=== PATIENT | female | born 1995 | race African-American/Black ===

== ENCOUNTER 2016-10-23 14:57 | Inpatient (IN) | payer OTHER, MEDICAID ==
--- NOTE | 2016-10-23 18:37 | RAD ---
HISTORY: Low back pain, sickle cell crisis Study: Single-view chest Comparison: None Findings: There is mild elevation of the right hemidiaphragm, likely chronic. There is an absent splenic shado w likely indicating auto infarction. The trachea is midline. The cardiac silhouette is borderline e nlarged when considering the AP technique. The lungs are clear without focal mass or consolidation. There is no effusion or pneumothorax. The bony thorax is grossly unremarkable. IMPRESSION: No acute cardiopulmonary disease. Reported By:
[2016-10-23 18:48] LABS: RETICULOCYTE % 10.85 % (0.8-2.2)
[2016-10-23 19:03] LABS: BASOPHILS # (AUTO) 0.1 X10^3/uL (0.0-0.1); BASOPHILS % (AUTO) 0.6 % (0.2-1.0); EOSINOPHILS # (AUTO) 0.1 x10^3/uL (0.0-0.2); EOSINOPHILS % (AUTO) 0.6 % (0.9-2.9); HEMATOCRIT 26.1 % (36.0-47.0); HEMOGLOBIN 9.2 g/dL (12.0-16.0); LYMPHOCYTES # (AUTO) 5.8 X10^3/uL (1.3-2.9); LYMPHOCYTES % (AUTO) 23.1 % (21.0-51.0); MEAN CORPUSCULAR HEMOGLOBIN 32.7 pg (27.0-34.0); MEAN CORPUSCULAR HGB CONC 35.1 g/dL (33.0-35.0); MEAN CORPUSCULAR VOLUME 93.1 fL (80.0-100.0); MEAN PLATELET VOLUME 7.8 fL (7.4-11.0); MONOCYTES # (AUTO) 2.5 x10^3/uL (0.3-0.8); NEUTROPHILS # (AUTO) 16.6 x10^3/uL (2.2-4.8); NEUTROPHILS % (AUTO) 65.7 % (42.0-75.0); PLATELET COUNT 177 X10^3/uL (150.0-450.0); RED BLOOD COUNT 2.81 X10^6/uL (3.5-5.4); RED CELL DISTRIBUTION WIDTH 15.8 % (11.6-16.5)
[2016-10-23 19:06] LABS: WHITE BLOOD COUNT 25.3 X10^3/uL (3.6-10.0)
[2016-10-23] MEDS: ZOFRAN INJ 4 MG VIAL IVP PRN (20:01)
[2016-10-23] MEDS: DILAUDID INJ IVP PRN ×2 (20:01→22:52)
[2016-10-23] MEDS: NS 1000 ML 1,000 ML IV SCH (20:30)
[2016-10-23 21:41] VITALS: BMI 23.6
[2016-10-23] MEDS ORDERED: [UNRECOGNIZED DRUG - OTHER] PO PRN (22:12)
[2016-10-23] MEDS ORDERED: OXYCODONE HCL PO PRN (22:12)
[2016-10-23] MEDS ORDERED: ACETAMINOPHEN PO PRN (22:12)
--- NOTE | 2016-10-23 22:18 | DR.H&P ---
H&P - History & Physical for Day of: H&P Date: 10/23/16 - Chief Complaint Chief Complaint: Back and leg pain - Allergies Allergies/Adverse Reactions: Allergies Allergy/AdvReac Type Severity Reaction Status Date / Time No Known Drug Allergies Allergy Verified 10/23/16 16:37 - History of Present Illness History of Present Illness: The patient is a 21yo BF who presented to Clinic with increasing back and leg pain consistant with her Sickle Cell Crisis. Patient was seen in the office setting yesterday with back pain. Patient stated she had been increasing her PO fluid intake but today started with nausea and vomiting. Patient had been on vacation last week and thinks the activity is what caused a flare. - Past Medical History Past Medical History: Anemia (Sickle Cell Anemia) Additional Medical History: Sickle Cell Anemia - Past Surgical History Surgical History: , Cholecystectomy, Other - Family History Family Medical History: Diabetes Mellitus, Cancer - Social History Does patient currently use any type of tobacco product: Yes (VAPOR) Have you used tobacco products in the last 12 months: Yes Type of Tobacco Use: VAPOR Does any household member use tobacco: No Alcohol Use: None Drug Use: None - Medications Home Medications: Oxycodone HCl/Acetaminophen [Percocet 10-325 mg Tablet] 1 each PO Q6HR PRN 10/23 [History Confirmed 10/23/16] - Review of Systems Constitutional: Malaise Eyes: No Symptoms Reported ENT: No Symptoms Reported Respiratory: No Symptoms Reported Cardiovascular: No Symptoms Reported Gastrointestinal: Nausea, Vomiting Genitourinary: No Symptoms Reported Musculoskeletal: Back Pain, Leg Pain Skin: No Symptoms Reported Neurological: No Symptoms Reported - Physical Exam Vital Signs: Temperature 98.3 F Pulse Rate [Left Brachial] 88 Respiratory Rate 18 Blood Pressure [Left Arm] 117/75 O2 Sat by Pulse Oximetry 95 Oriented: Normal Eyes: Normal Ear: Normal Nose: Normal Throat: Normal Respiratory: Clear Throughout Cardiovascular: Normal : Normal Auscultation: Bowel Sounds: Normal Palpation: Normal Tenderness: Normal Skin: Normal Musculoskeletal: Back:Lumbar, Tender Psychiatric: Normal Mood Description: Calm Affect: Normal Speech Pattern: Clear - Assessment/Plan (1) Sickle cell crisis Status: Acute Plan: CBC, CMP, Retic Count. IV Hydration. Pain mgmt (2) Sickle cell anemia Qualifiers: Sickle-cell associated disorders: with unspecified crisis Qualified Code(s) : D57.00 - Hb-SS disease with crisis, unspecified; D57.0 - Hb-SS disease with crisis Status: Acute Plan: Monitor CBC (3) Leukocytosis Qualifiers: Leukocytosis type: L Status: Acute Plan: CBC, CMP, Retic Count. IV Hydration. Levaquin IV (4) Back pain Qualifiers: Back pain location: low back pain Chronicity: acute Back pain laterality : bilateral Sciatica presence: S Sciatica laterality: S Status: Acute Plan: Dilaudid IV
[2016-10-23 22:28] LABS: ALANINE AMINOTRANSFERASE 15 Units/L (12-78); ALBUMIN 4.2 g/dL (3.4-5.0); ALKALINE PHOSPHATASE 66 Units/L (46-116); ASPARTATE AMINO TRANSFERASE 23 Units/L (15-37); BLOOD UREA NITROGEN 4 mg/dL (7-18); CARBON DIOXIDE 29.8 mmol/L (21-32); CHLORIDE 98 mmol/L (98-107); GLUCOSE 79 mg/dL (65-99); SODIUM 138 mmol/L (136-145); TOTAL PROTEIN 8.7 g/dL (6.4-8.2); eGFR BLACK RACES > 60 (>60); eGFR NON BLACK RACES > 60 (>60)
[2016-10-23] MEDS: LEVAQUIN PREMIX IV 500 MG 500 MG/100 ML BAG IV SCH (22:52)
[2016-10-24 01:43] LABS: BILIRUBIN,URINE NEGATIVE (NEGATIVE); BLOOD/HEMOGLOBIN,URINE 1+ (NEGATIVE); GLUCOSE, URINE NEGATIVE (NEGATIVE); KETONES,URINE NEGATIVE (NEGATIVE); LEUKOCYTE ESTERASE ,URINE NEGATIVE (NEGATIVE); NITRITES,URINE NEGATIVE (NEGATIVE); PROTEIN,URINE NEGATIVE (NEGATIVE); UROBILINOGEN,URINE NORMAL (NORMAL)
[2016-10-24] MEDS: DILAUDID INJ IVP PRN ×8 (01:49→23:41)
[2016-10-24 01:51] LABS: APPEARANCE,URINE CLEAR (CLEAR); BACTERIA,URINE TRACE /HPF (NEGATIVE); COLOR,URINE YELLOW (YELLOW); MUCUS,URINE FEW /HPF (NEGATIVE); RBC,URINE 0-2 /HPF (NEGATIVE); SQUAMOUS EPITHELIAL CELL,UR RARE /HPF (NEGATIVE)
[2016-10-24] MEDS: ZOFRAN INJ 4 MG VIAL IVP PRN ×3 (04:58→23:41)
[2016-10-24] MEDS: NS 1000 ML 1,000 ML IV SCH ×3 (05:00→20:39)
[2016-10-24 06:22] LABS: ALANINE AMINOTRANSFERASE 13 Units/L (12-78); ALBUMIN 3.5 g/dL (3.4-5.0); ALKALINE PHOSPHATASE 59 Units/L (46-116); ASPARTATE AMINO TRANSFERASE 21 Units/L (15-37); BLOOD UREA NITROGEN 4 mg/dL (7-18); CALCIUM 8.5 mg/dL (8.5-10.1); CARBON DIOXIDE 31.2 mmol/L (21-32); CHLORIDE 102 mmol/L (98-107); CREATININE 0.53 mg/dL (0.55-1.02); GLUCOSE 98 mg/dL (65-99); SODIUM 140 mmol/L (136-145); TOTAL PROTEIN 7.9 g/dL (6.4-8.2); eGFR BLACK RACES > 60 (>60); eGFR NON BLACK RACES > 60 (>60)
[2016-10-24 06:29] LABS: EOSINOPHILS # (AUTO) 0.2 x10^3/uL (0.0-0.2); EOSINOPHILS % (AUTO) 0.8 % (0.9-2.9)
[2016-10-24] MEDS ORDERED: POTASSIUM CHLORIDE LIQ 20 MEQ UDC PO PRN (06:32)
[2016-10-24] MEDS ORDERED: K-LYTE EFFERVESCENT PO PRN (06:32)
[2016-10-24] MEDS ORDERED: K-RIDER 10 MEQ/NS 100 ML 10 MEQ/100 ML BAG IV PRN (06:32)
[2016-10-24 06:37] LABS: BASOPHILS # (AUTO) 0.1 X10^3/uL (0.0-0.1); BASOPHILS % (AUTO) 0.5 % (0.2-1.0); HEMATOCRIT 22.9 % (36.0-47.0); LYMPHOCYTES # (AUTO) 4.8 X10^3/uL (1.3-2.9); LYMPHOCYTES % (AUTO) 22.5 % (21.0-51.0); MEAN CORPUSCULAR HEMOGLOBIN 32.5 pg (27.0-34.0); MEAN CORPUSCULAR HGB CONC 34.8 g/dL (33.0-35.0); MEAN CORPUSCULAR VOLUME 93.5 fL (80.0-100.0); MEAN PLATELET VOLUME 7.7 fL (7.4-11.0); MONOCYTES # (AUTO) 2.9 x10^3/uL (0.3-0.8); MONOCYTES % (AUTO) 13.5 % (0.0-13.0); NEUTROPHILS # (AUTO) 13.4 x10^3/uL (2.2-4.8); NEUTROPHILS % (AUTO) 62.7 % (42.0-75.0); PLATELET COUNT 197 X10^3/uL (150.0-450.0); RED BLOOD COUNT 2.45 X10^6/uL (3.5-5.4)
[2016-10-24 06:59] LABS: WHITE BLOOD COUNT 21.3 X10^3/uL (3.6-10.0)
[2016-10-24 07:03] LABS: PLATELET MORPHOLOGY COMMENT NORMAL (NORMAL)
[2016-10-24 07:05] LABS: POIKILOCYTOSIS 1+; SICKLE CELLS FEW
[2016-10-24 07:06] LABS: HYPOCHROMASIA 1+
--- NOTE | 2016-10-24 18:28 | PCM.PROG ---
Progress Note - Progress Note for Day of Date: 10/24/16 - Subjective Subjective: PAIN ALL OVER - Past Medical Family Social History Past Med/Fam/Surg Hx: No changes since H&P Allergies: Allergies No Known Drug Allergies Allergy (Verified 10/23/16 16:37) - Review of Systems ROS: No change since H&P - Vital Signs and I&O's Vital Signs: Temperature 98.3 F Pulse Rate [Left Brachial] 87 Respiratory Rate 19 Blood Pressure [Right Arm] 108/62 Blood Pressure [Left Arm] 101/58 O2 Sat by Pulse Oximetry 94 Intake and Output: Intake & Output 10/22/16 10/23/16 10/24/16 10/25/16 11:59 11:59 11:59 11:59 Intake Total 1090 1500 Balance 1090 1500 - Physical Exam Oriented: Normal Eyes: Normal Ear: Normal Nose: Normal Throat: Normal Respiratory: Normal Cardiovascular: Normal : Normal Auscultation: Bowel Sounds: Normal Tenderness: Normal Skin: Normal Musculoskeletal: Shoulder, Elbow, Hand, Knee, Leg, Back:Thoracic, Back:Lumbar, Tender Psychiatric: Normal Mood Description: Calm Affect: Normal Speech Pattern: Clear, Appropriate - Laboratory and Diagnostics Result Diagrams: 10/24/16 05:30 10/24/16 10:14 Labs: Laboratory WBC 21.3 X10^3/uL (3.6-10.0) H* 10/24/16 05:30 RBC 2.45 X10^6/uL (3.5-5.4) L 10/24/16 05:30 Hgb 8.0 g/dL (12.0-16.0) L 10/24/16 05:30 Hct 22.9 % (36.0-47.0) L 10/24/16 05:30 MCV 93.5 fL (80.0-100.0) 10/24/16 05:30 MCH 32.5 pg (27.0-34.0) 10/24/16 05:30 MCHC 34.8 g/dL (33.0-35.0) 10/24/16 05:30 RDW 17.0 % (11.6-16.5) H 10/24/16 05:30 Plt Count 197 X10^3/uL (150.0-450.0) 10/24/16 05:30 Plt Count Comment Adequate (ADEQUATE) 10/24/16 05:30 MPV 7.7 fL (7.4-11.0) 10/24/16 05:30 Neut % 62.7 % (42.0-75.0) 10/24/16 05:30 Lymph % 22.5 % (21.0-51.0) 10/24/16 05:30 [place] % 13.5 % (0.0-13.0) H 10/24/16 05:30 Eos % 0.8 % (0.9-2.9) L 10/24/16 05:30 Baso % 0.5 % (0.2-1.0) 10/24/16 05:30 Neut # 13.4 x10^3/uL (2.2-4.8) H 10/24/16 05:30 Lymph # 4.8 X10^3/uL (1.3-2.9) H 10/24/16 05:30 [place] # 2.9 x10^3/uL (0.3-0.8) H 10/24/16 05:30 Eos # 0.2 x10^3/uL (0.0-0.2) 10/24/16 05:30 Baso # 0.1 X10^3/uL (0.0-0.1) 10/24/16 05:30 Absolute Nucleated RBC 1.3 /100WBC 10/24/16 05:30 Total Counted 100 10/24/16 05:30 Neutrophils % (Manual) 73 % (39-76) 10/24/16 05:30 Lymphocytes % (Manual) 19 % (13-43) 10/24/16 05:30 Monocytes % (Manual) 8 % (4-9) 10/24/16 05:30 Plt Morphology Comment Normal (NORMAL) 10/24/16 05:30 RBC Morphology Abnormal (NORMAL) A 10/24/16 05:30 Hypochromasia 1+ A 10/24/16 05:30 Poikilocytosis 1+ A 10/24/16 05:30 Sickle Cells Few 10/24/16 05:30 Absolute Retic 0.3004 10^6/uL 10/23/16 17:55 Percent Retic 10.85 % (0.8-2.2) H 10/23/16 17:55 Sodium 140 mmol/L (136-145) 10/24/16 05:30 Corrected Sodium TNP 10/24/16 05:30 Potassium 3.3 mmol/L (3.5-5.1) L 10/24/16 10:14 Chloride 102 mmol/L (98-107) 10/24/16 05:30 Carbon Dioxide 31.2 mmol/L (21-32) 10/24/16 05:30 BUN 4 mg/dL (7-18) L 10/24/16 05:30 Creatinine 0.53 mg/dL (0.55-1.02) L 10/24/16 05:30 Est GFR (MDRD) Af Amer > 60 (>60) 10/24/16 05:30 Est GFR (MDRD) Non-Af > 60 (>60) 10/24/16 05:30 Glucose 98 mg/dL (65-99) 10/24/16 05:30 Calcium 8.5 mg/dL (8.5-10.1) 10/24/16 05:30 Corrected Calcium TNP 10/24/16 05:30 Total Bilirubin 2.50 mg/dL (0.2-1.0) H 10/24/16 05:30 AST 21 Units/L (15-37) 10/24/16 05:30 ALT 13 Units/L (12-78) 10/24/16 05:30 Alkaline Phosphatase 59 Units/L (46-116) 10/24/16 05:30 Total Protein 7.9 g/dL (6.4-8.2) 10/24/16 05:30 Albumin 3.5 g/dL (3.4-5.0) 10/24/16 05:30 Globulin 4.4 g/dL (2.5-4.5) 10/24/16 05:30 Albumin/Globulin Ratio 0.8 Ratio (1.1-2.1) L 10/24/16 05:30 Specimen Type Clean catch urine 10/24/16 01:00 Urine Color Yellow (YELLOW) 10/24/16 01:00 Urine Appearance Clear (CLEAR) 10/24/16 01:00 Urine pH 6.0 (5.0 - 8.0) 10/24/16 01:00 Ur Specific [place] 1.010 (1.000-1.030) 10/24/16 01:00 Urine Protein Negative (NEGATIVE) 10/24/16 01:00 Urine Glucose (UA) Negative (NEGATIVE) 10/24/16 01:00 Urine Ketones Negative (NEGATIVE) 10/24/16 01:00 Urine Occult Blood 1+ (NEGATIVE) 10/24/16 01:00 Urine Nitrite Negative (NEGATIVE) 10/24/16 01:00 Urine Bilirubin Negative (NEGATIVE) 10/24/16 01:00 Urine Urobilinogen Normal (NORMAL) 10/24/16 01:00 Ur Leukocyte Esterase Negative (NEGATIVE) 10/24/16 01:00 Urine RBC 0-2 /HPF (NEGATIVE) 10/24/16 01:00 Urine WBC 0-2 /HPF (NEGATIVE) 10/24/16 01:00 Ur Squamous Epith Cells Rare /HPF (NEGATIVE) 10/24/16 01:00 Urine Bacteria Trace /HPF (NEGATIVE) 10/24/16 01:00 Urine Mucus Few /HPF (NEGATIVE) 10/24/16 01:00 Ur Culture Indicated? No/not indicated 10/24/16 01:00 - Plan (1) Sickle cell crisis Status: Acute Plan: CBC, CMP, Retic Count. IV Hydration. Pain mgmt (2) Leukocytosis Status: Acute Qualifiers: Leukocytosis type: L Plan: CBC, CMP, Retic Count. IV Hydration. Levaquin IV. BLOOD CULTURE PENDING (3) Sickle cell anemia Status: Chronic Qualifiers: Sickle-cell associated disorders: with unspecified crisis Qualified Code(s) : D57.00 - Hb-SS disease with crisis, unspecified; D57.0 - Hb-SS disease with crisis Plan: Monitor CBC
[2016-10-24] MEDS: K-DUR TAB 20 MEQ PO PRN (20:38)
[2016-10-24] MEDS: LEVAQUIN PREMIX IV 500 MG 500 MG/100 ML BAG IV SCH (20:39)
[2016-10-25] MEDS: DILAUDID INJ IVP PRN ×6 (02:33→19:59)
[2016-10-25] MEDS: NS 1000 ML 1,000 ML IV SCH ×2 (05:39→10:39)
[2016-10-25 05:49] LABS: ALANINE AMINOTRANSFERASE 26 Units/L (12-78); ALBUMIN 3.3 g/dL (3.4-5.0); ALKALINE PHOSPHATASE 62 Units/L (46-116); ASPARTATE AMINO TRANSFERASE 36 Units/L (15-37); BLOOD UREA NITROGEN 1 mg/dL (7-18); CALCIUM 8.4 mg/dL (8.5-10.1); CARBON DIOXIDE 30.9 mmol/L (21-32); CHLORIDE 106 mmol/L (98-107); CREATININE 0.46 mg/dL (0.55-1.02); GLUCOSE 99 mg/dL (65-99); SODIUM 142 mmol/L (136-145); TOTAL PROTEIN 7.7 g/dL (6.4-8.2); eGFR BLACK RACES > 60 (>60); eGFR NON BLACK RACES > 60 (>60)
[2016-10-25 06:18] LABS: BASOPHILS # (AUTO) 0.1 X10^3/uL (0.0-0.1); BASOPHILS % (AUTO) 0.5 % (0.2-1.0); EOSINOPHILS # (AUTO) 0.6 x10^3/uL (0.0-0.2); EOSINOPHILS % (AUTO) 2.4 % (0.9-2.9); HEMATOCRIT 22.4 % (36.0-47.0); HEMOGLOBIN 7.8 g/dL (12.0-16.0); LYMPHOCYTES # (AUTO) 6.6 X10^3/uL (1.3-2.9); LYMPHOCYTES % (AUTO) 27.4 % (21.0-51.0); MEAN CORPUSCULAR HEMOGLOBIN 33.4 pg (27.0-34.0); MEAN CORPUSCULAR HGB CONC 34.7 g/dL (33.0-35.0); MEAN CORPUSCULAR VOLUME 96.3 fL (80.0-100.0); MONOCYTES # (AUTO) 2.8 x10^3/uL (0.3-0.8); MONOCYTES % (AUTO) 11.7 % (0.0-13.0); PLATELET COUNT 250 X10^3/uL (150.0-450.0); RED BLOOD COUNT 2.32 X10^6/uL (3.5-5.4); RED CELL DISTRIBUTION WIDTH 18.9 % (11.6-16.5)
[2016-10-25 06:21] LABS: RETICULOCYTE % 18.3 % (0.8-2.2)
[2016-10-25 06:47] LABS: WHITE BLOOD COUNT 24.1 X10^3/uL (3.6-10.0)
[2016-10-25 06:48] LABS: ANISOCYTOSIS 1+; BAND NEUTROPHILS % 1 % (0-10); HYPOCHROMASIA 1+; MICROCYTOSIS 1+; PLATELET MORPHOLOGY COMMENT NORMAL (NORMAL); POIKILOCYTOSIS 1+; SICKLE CELLS FEW
[2016-10-25] MEDS: ZOFRAN INJ 4 MG VIAL IVP PRN ×2 (07:40→19:59)
[2016-10-25] MEDS: ROCEPHIN VIAL 1 GM 1 GM in NS 50 ML IV + SPIKE MINIBAG* 50 ML IV SCH (10:35)
[2016-10-25] MEDS: PERCOCET TAB 5/325 MG PO PRN ×2 (10:36→18:00)
[2016-10-25] MEDS: BENADRYL CAP/TAB 25 MG PO PRN (10:37)
[2016-10-25] MEDS: K-DUR TAB 20 MEQ PO PRN ×3 (12:00→21:08)
--- NOTE | 2016-10-25 18:20 | PCM.PROG ---
Progress Note - Progress Note for Day of Date: 10/25/16 - Subjective Subjective: Patient is a 21-year-old black female who was admitted on 711 with acute sickle cell crisis, sickle cell anemia. Patient was noted to have leukocytosis on admission patient has been receiving IV Levaquin. This morning patient's WBCs 24.1, hemoglobin 7.8. Patient's bili improved at 2. Patient's fatigue count continued to be elevated this morning 18.3. Patient's been noncompliant with use of O2. Patient encouraged to keep oxygen on 24 hours, will given normal saline bolus this morning and add Rocephin 1 g IV daily and obtain abdominal series due to constipation. Encouraged by mouth hydration will repeat a.m. labs and continue with pain and nausea control - Past Medical Family Social History Past Med/Fam/Surg Hx: No changes since H&P Allergies: Allergies No Known Drug Allergies Allergy (Verified 10/23/16 16:37) - Review of Systems ROS: No change since H&P - Vital Signs and I&O's Vital Signs: Temperature 98.6 F Pulse Rate [Right Brachial] 75 Pulse Rate [Left Brachial] 77 Respiratory Rate 16 Blood Pressure [Right Arm] 102/51 Blood Pressure [Left Arm] 108/59 O2 Sat by Pulse Oximetry 96 Intake and Output: Intake & Output 10/23/16 10/24/16 10/25/16 10/26/16 11:59 11:59 11:59 11:59 Intake Total 1090 2440 1425 Output Total 3 Balance 1090 2437 1425 - Physical Exam Oriented: Normal Eyes: Normal Ear: Normal Nose: Normal Throat: Normal Respiratory: Normal Cardiovascular: Normal : Normal Auscultation: Bowel Sounds: Decreased Tenderness: Mild Skin: Normal Musculoskeletal: Shoulder, Elbow, Hand, Knee, Leg, Back:Thoracic, Back:Lumbar, Tender Psychiatric: Normal Mood Description: Calm Affect: Normal Speech Pattern: Clear, Appropriate - Laboratory and Diagnostics Result Diagrams: 10/25/16 05:20 10/25/16 16:20 Labs: 10/23/16 18:45 Blood Blood Culture - Preliminary 10/23/16 17:55 Blood Blood Culture - Preliminary Laboratory WBC 24.1 X10^3/uL (3.6-10.0) H* 10/25/16 05:20 RBC 2.32 X10^6/uL (3.5-5.4) L 10/25/16 05:20 Hgb 7.8 g/dL (12.0-16.0) L 10/25/16 05:20 Hct 22.4 % (36.0-47.0) L 10/25/16 05:20 MCV 96.3 fL (80.0-100.0) 10/25/16 05:20 MCH 33.4 pg (27.0-34.0) 10/25/16 05:20 MCHC 34.7 g/dL (33.0-35.0) 10/25/16 05:20 RDW 18.9 % (11.6-16.5) H 10/25/16 05:20 Plt Count 250 X10^3/uL (150.0-450.0) 10/25/16 05:20 Plt Count Comment Adequate (ADEQUATE) 10/25/16 05:20 MPV 8.0 fL (7.4-11.0) 10/25/16 05:20 Neut % 58.0 % (42.0-75.0) 10/25/16 05:20 Lymph % 27.4 % (21.0-51.0) 10/25/16 05:20 [place] % 11.7 % (0.0-13.0) 10/25/16 05:20 Eos % 2.4 % (0.9-2.9) 10/25/16 05:20 Baso % 0.5 % (0.2-1.0) 10/25/16 05:20 Neut # 14.0 x10^3/uL (2.2-4.8) H 10/25/16 05:20 Lymph # 6.6 X10^3/uL (1.3-2.9) H 10/25/16 05:20 [place] # 2.8 x10^3/uL (0.3-0.8) H 10/25/16 05:20 Eos # 0.6 x10^3/uL (0.0-0.2) H 10/25/16 05:20 Baso # 0.1 X10^3/uL (0.0-0.1) 10/25/16 05:20 Absolute Nucleated RBC 2.3 /100WBC 10/25/16 05:20 Total Counted 100 10/25/16 05:20 Neutrophils % (Manual) 56 % (39-76) 10/25/16 05:20 Band Neutrophils % 1 % (0-10) 10/25/16 05:20 Lymphocytes % (Manual) 23 % (13-43) 10/25/16 05:20 Monocytes % (Manual) 19 % (4-9) H 10/25/16 05:20 Eosinophils % (Manual) 1 % (0-6) 10/25/16 05:20 Nucleated RBCs 4 10/25/16 05:20 Plt Morphology Comment Normal (NORMAL) 10/25/16 05:20 RBC Morphology Abnormal (NORMAL) A 10/25/16 05:20 Hypochromasia 1+ A 10/25/16 05:20 Poikilocytosis 1+ A 10/25/16 05:20 Anisocytosis 1+ A 10/25/16 05:20 Microcytosis 1+ A 10/25/16 05:20 Sickle Cells Few 10/25/16 05:20 Absolute Retic 0.0426 10^6/uL 10/25/16 05:30 Percent Retic 18.30 % (0.8-2.2) H 10/25/16 05:30 Sodium 142 mmol/L (136-145) 10/25/16 05:20 Corrected Sodium TNP 10/25/16 05:20 Potassium 3.4 mmol/L (3.5-5.1) L 10/25/16 16:20 Chloride 106 mmol/L (98-107) 10/25/16 05:20 Carbon Dioxide 30.9 mmol/L (21-32) 10/25/16 05:20 BUN 1 mg/dL (7-18) L 10/25/16 05:20 Creatinine 0.46 mg/dL (0.55-1.02) L 10/25/16 05:20 Est GFR (MDRD) Af Amer > 60 (>60) 10/25/16 05:20 Est GFR (MDRD) Non-Af > 60 (>60) 10/25/16 05:20 Glucose 99 mg/dL (65-99) 10/25/16 05:20 Calcium 8.4 mg/dL (8.5-10.1) L 10/25/16 05:20 Corrected Calcium 9.0 mg/dL (8.5-10.1) 10/25/16 05:20 Magnesium 1.8 mg/dL (1.7-2.9) 10/25/16 05:20 Total Bilirubin 2.00 mg/dL (0.2-1.0) H 10/25/16 05:20 AST 36 Units/L (15-37) 10/25/16 05:20 ALT 26 Units/L (12-78) 10/25/16 05:20 Alkaline Phosphatase 62 Units/L (46-116) 10/25/16 05:20 Total Protein 7.7 g/dL (6.4-8.2) 10/25/16 05:20 Albumin 3.3 g/dL (3.4-5.0) L 10/25/16 05:20 Globulin 4.4 g/dL (2.5-4.5) 10/25/16 05:20 Albumin/Globulin Ratio 0.8 Ratio (1.1-2.1) L 10/25/16 05:20 Specimen Type Clean catch urine 10/24/16 01:00 Urine Color Yellow (YELLOW) 10/24/16 01:00 Urine Appearance Clear (CLEAR) 10/24/16 01:00 Urine pH 6.0 (5.0 - 8.0) 10/24/16 01:00 Ur Specific [place] 1.010 (1.000-1.030) 10/24/16 01:00 Urine Protein Negative (NEGATIVE) 10/24/16 01:00 Urine Glucose (UA) Negative (NEGATIVE) 10/24/16 01:00 Urine Ketones Negative (NEGATIVE) 10/24/16 01:00 Urine Occult Blood 1+ (NEGATIVE) 10/24/16 01:00 Urine Nitrite Negative (NEGATIVE) 10/24/16 01:00 Urine Bilirubin Negative (NEGATIVE) 10/24/16 01:00 Urine Urobilinogen Normal (NORMAL) 10/24/16 01:00 Ur Leukocyte Esterase Negative (NEGATIVE) 10/24/16 01:00 Urine RBC 0-2 /HPF (NEGATIVE) 10/24/16 01:00 Urine WBC 0-2 /HPF (NEGATIVE) 10/24/16 01:00 Ur Squamous Epith Cells Rare /HPF (NEGATIVE) 10/24/16 01:00 Urine Bacteria Trace /HPF (NEGATIVE) 10/24/16 01:00 Urine Mucus Few /HPF (NEGATIVE) 10/24/16 01:00 Ur Culture Indicated? No/not indicated 10/24/16 01:00 - Plan (1) Sickle cell crisis Status: Acute Plan: CBC, CMP, Retic Count. IV Hydration. Pain mgmt (2) Leukocytosis Status: Acute Qualifiers: Leukocytosis type: L Plan: CBC, CMP, Retic Count. IV Hydration. Levaquin IV AND ADDED iv rOCEPHIN 1 G DAILY. BLOOD CULTURE NEGATIVE ON DAY 3 (3) Sickle cell anemia Status: Chronic Qualifiers: Sickle-cell associated disorders: with unspecified crisis Qualified Code(s) : D57.00 - Hb-SS disease with crisis, unspecified; D57.0 - Hb-SS disease with crisis Plan: Monitor CBC
--- NOTE | 2016-10-25 18:59 | RAD ---
HISTORY: Leukocytosis, constipation Study: Acute abdominal series Comparison: None Findings: The patient is rotated. The cardiac silhouette is unremarkable. The lung apices are partially obsc ured by overlying soft tissues. Otherwise the lungs are clear without focal infiltrate or effusion. . Flat plate and upright evaluation of the abdomen demonstrates a nonspecific bowel gas pattern. The renal shadows are partially obscured by overlying bowel content. Surgical clips project over the rig ht upper quadrant the abdomen. If symptoms persist recommend continued followup for further evaluati on. IMPRESSION: 1. No acute cardiopulmonary disease. 2. Nonspecific bowel gas pattern. Reported By:
[2016-10-25] MEDS: MILK OF MAGNESIA PO SCH (21:07)
[2016-10-25] MEDS: COLACE CAP 100 MG PO SCH (21:08)
[2016-10-25] MEDS: LEVAQUIN PREMIX IV 500 MG 500 MG/100 ML BAG IV SCH (21:09)
[2016-10-26] MEDS: DILAUDID INJ IVP PRN ×6 (00:05→20:37)
[2016-10-26] MEDS: NS 1000 ML 1,000 ML IV SCH ×6 (00:06→19:52)
[2016-10-26] MEDS: PERCOCET TAB 5/325 MG PO PRN ×2 (02:19→18:13)
[2016-10-26] MEDS: BENADRYL CAP/TAB 25 MG PO PRN ×2 (02:19→18:13)
[2016-10-26] MEDS: ZOFRAN INJ 4 MG VIAL IVP PRN ×3 (04:24→20:37)
[2016-10-26 07:01] LABS: ALANINE AMINOTRANSFERASE 32 Units/L (12-78); ALBUMIN 2.9 g/dL (3.4-5.0); ALKALINE PHOSPHATASE 58 Units/L (46-116); ASPARTATE AMINO TRANSFERASE 42 Units/L (15-37); BASOPHILS # (AUTO) 0.3 X10^3/uL (0.0-0.1); BASOPHILS % (AUTO) 1.6 % (0.2-1.0); BLOOD UREA NITROGEN 3 mg/dL (7-18); CALCIUM 7.9 mg/dL (8.5-10.1); CARBON DIOXIDE 28.6 mmol/L (21-32); CHLORIDE 107 mmol/L (98-107); COR CA(FOR HYPOALB) 8.8 mg/dL (8.5-10.1); CREATININE 0.51 mg/dL (0.55-1.02); EOSINOPHILS # (AUTO) 0.7 x10^3/uL (0.0-0.2); EOSINOPHILS % (AUTO) 3.4 % (0.9-2.9); GLUCOSE 93 mg/dL (65-99); LYMPHOCYTES % (AUTO) 28.7 % (21.0-51.0); MEAN CORPUSCULAR HEMOGLOBIN 33.6 pg (27.0-34.0); MEAN CORPUSCULAR HGB CONC 34.8 g/dL (33.0-35.0); MEAN CORPUSCULAR VOLUME 96.4 fL (80.0-100.0); MEAN PLATELET VOLUME 8.3 fL (7.4-11.0); MONOCYTES # (AUTO) 2.9 x10^3/uL (0.3-0.8); MONOCYTES % (AUTO) 13.7 % (0.0-13.0); NEUTROPHILS # (AUTO) 10.9 x10^3/uL (2.2-4.8); NEUTROPHILS % (AUTO) 52.6 % (42.0-75.0); PLATELET COUNT 218 X10^3/uL (150.0-450.0); RED BLOOD COUNT 1.95 X10^6/uL (3.5-5.4); RED CELL DISTRIBUTION WIDTH 21.7 % (11.6-16.5); RETICULOCYTE % 20.51 % (0.8-2.2); SODIUM 141 mmol/L (136-145); TOTAL PROTEIN 6.8 g/dL (6.4-8.2); eGFR BLACK RACES > 60 (>60); eGFR NON BLACK RACES > 60 (>60)
[2016-10-26 08:36] LABS: WHITE BLOOD COUNT 20.8 X10^3/uL (3.6-10.0)
[2016-10-26 08:37] LABS: HEMATOCRIT 18.8 % (36.0-47.0); HEMOGLOBIN 6.6 g/dL (12.0-16.0)
[2016-10-26 08:38] LABS: HYPOCHROMASIA 1+; PLATELET MORPHOLOGY COMMENT NORMAL (NORMAL)
[2016-10-26 08:39] LABS: ANISOCYTOSIS 1+; POIKILOCYTOSIS 1+; SICKLE CELLS FEW
[2016-10-26] MEDS: COLACE CAP 100 MG PO SCH ×2 (09:02→20:36)
[2016-10-26] MEDS: ROCEPHIN VIAL 1 GM 1 GM in NS 50 ML IV + SPIKE MINIBAG* 50 ML IV SCH (09:02)
[2016-10-26] MEDS: MILK OF MAGNESIA PO SCH ×2 (09:02→20:36)
--- NOTE | 2016-10-26 14:30 | PCM.PROG ---
Progress Note - Progress Note for Day of Date: 10/26/16 - Subjective Subjective: Patient is a 21-year-old black female who was admitted on 10/23 with acute sickle cell crisis, sickle cell anemia. Patient was noted to have leukocytosis on admission patient has been receiving IV Levaquin and Rocephin. Patient's been noncompliant with use of O2. Patient encouraged to keep oxygen on 24 hours, Encouraged by mouth hydration will repeat a.m. labs and continue with pain and nausea control - Past Medical Family Social History Past Med/Fam/Surg Hx: No changes since H&P Allergies: Allergies No Known Drug Allergies Allergy (Verified 10/23/16 16:37) - Review of Systems ROS: No change since H&P - Vital Signs and I&O's Vital Signs: Temperature 98.4 F Pulse Rate [Right Brachial] 66 Pulse Rate [Left Brachial] 79 Respiratory Rate 16 Blood Pressure [Right Arm] 102/51 Blood Pressure [Left Arm] 112/62 O2 Sat by Pulse Oximetry 100 Intake and Output: Intake & Output 10/24/16 10/25/16 10/26/16 10/27/16 11:59 11:59 11:59 11:59 Intake Total 1090 2440 4275 590 Output Total 3 Balance 1090 2437 4275 590 - Physical Exam Oriented: Normal Eyes: Normal Ear: Normal Nose: Normal Throat: Normal Respiratory: Normal Cardiovascular: Normal : Normal Auscultation: Bowel Sounds: Decreased Tenderness: Mild Skin: Normal Musculoskeletal: Shoulder, Elbow, Hand, Knee, Leg, Back:Thoracic, Back:Lumbar, Tender Psychiatric: Normal Mood Description: Calm Affect: Normal Speech Pattern: Clear, Appropriate - Laboratory and Diagnostics Result Diagrams: 10/26/16 05:30 10/26/16 05:30 Labs: 10/23/16 18:45 Blood Blood Culture - Preliminary 10/23/16 17:55 Blood Blood Culture - Preliminary Laboratory WBC 20.8 X10^3/uL (3.6-10.0) H* 10/26/16 05:30 RBC 1.95 X10^6/uL (3.5-5.4) L 10/26/16 05:30 Hgb 6.6 g/dL (12.0-16.0) L* 10/26/16 05:30 Hct 18.8 % (36.0-47.0) L* 10/26/16 05:30 MCV 96.4 fL (80.0-100.0) 10/26/16 05:30 MCH 33.6 pg (27.0-34.0) 10/26/16 05:30 MCHC 34.8 g/dL (33.0-35.0) 10/26/16 05:30 RDW 21.7 % (11.6-16.5) H 10/26/16 05:30 Plt Count 218 X10^3/uL (150.0-450.0) 10/26/16 05:30 Plt Count Comment Adequate (ADEQUATE) 10/26/16 05:30 MPV 8.3 fL (7.4-11.0) 10/26/16 05:30 Neut % 52.6 % (42.0-75.0) 10/26/16 05:30 Lymph % 28.7 % (21.0-51.0) 10/26/16 05:30 [place] % 13.7 % (0.0-13.0) H 10/26/16 05:30 Eos % 3.4 % (0.9-2.9) H 10/26/16 05:30 Baso % 1.6 % (0.2-1.0) H 10/26/16 05:30 Neut # 10.9 x10^3/uL (2.2-4.8) H 10/26/16 05:30 Lymph # 6.0 X10^3/uL (1.3-2.9) H 10/26/16 05:30 [place] # 2.9 x10^3/uL (0.3-0.8) H 10/26/16 05:30 Eos # 0.7 x10^3/uL (0.0-0.2) H 10/26/16 05:30 Baso # 0.3 X10^3/uL (0.0-0.1) H 10/26/16 05:30 Absolute Nucleated RBC 2.8 /100WBC 10/26/16 05:30 Total Counted 100 10/25/16 05:20 Neutrophils % (Manual) 56 % (39-76) 10/25/16 05:20 Band Neutrophils % 1 % (0-10) 10/25/16 05:20 Lymphocytes % (Manual) 23 % (13-43) 10/25/16 05:20 Monocytes % (Manual) 19 % (4-9) H 10/25/16 05:20 Eosinophils % (Manual) 1 % (0-6) 10/25/16 05:20 Nucleated RBCs 4 10/25/16 05:20 Plt Morphology Comment Normal (NORMAL) 10/26/16 05:30 RBC Morphology Abnormal (NORMAL) A 10/26/16 05:30 Hypochromasia 1+ A 10/26/16 05:30 Poikilocytosis 1+ A 10/26/16 05:30 Anisocytosis 1+ A 10/26/16 05:30 Microcytosis 1+ A 10/25/16 05:20 Sickle Cells Few 10/26/16 05:30 Absolute Retic 0.4003 10^6/uL 10/26/16 05:30 Percent Retic 20.51 % (0.8-2.2) H 10/26/16 05:30 Sodium 141 mmol/L (136-145) 10/26/16 05:30 Corrected Sodium TNP 10/26/16 05:30 Potassium 3.4 mmol/L (3.5-5.1) L 10/26/16 05:30 Chloride 107 mmol/L (98-107) 10/26/16 05:30 Carbon Dioxide 28.6 mmol/L (21-32) 10/26/16 05:30 BUN 3 mg/dL (7-18) L 10/26/16 05:30 Creatinine 0.51 mg/dL (0.55-1.02) L 10/26/16 05:30 Est GFR (MDRD) Af Amer > 60 (>60) 10/26/16 05:30 Est GFR (MDRD) Non-Af > 60 (>60) 10/26/16 05:30 Glucose 93 mg/dL (65-99) 10/26/16 05:30 Calcium 7.9 mg/dL (8.5-10.1) L 10/26/16 05:30 Corrected Calcium 8.8 mg/dL (8.5-10.1) 10/26/16 05:30 Magnesium 1.8 mg/dL (1.7-2.9) 10/25/16 05:20 Iron 48 ug/dL (50-175) L 10/25/16 16:20 Transferrin 133 mg/dL (202-364) L 10/25/16 16:20 Ferritin 756 ng/mL (8-252) H 10/25/16 16:20 Total Bilirubin 1.40 mg/dL (0.2-1.0) H 10/26/16 05:30 AST 42 Units/L (15-37) H 10/26/16 05:30 ALT 32 Units/L (12-78) 10/26/16 05:30 Alkaline Phosphatase 58 Units/L (46-116) 10/26/16 05:30 Total Protein 6.8 g/dL (6.4-8.2) 10/26/16 05:30 Albumin 2.9 g/dL (3.4-5.0) L 10/26/16 05:30 Globulin 3.9 g/dL (2.5-4.5) 10/26/16 05:30 Albumin/Globulin Ratio 0.7 Ratio (1.1-2.1) L 10/26/16 05:30 Vitamin B12 322 pg/mL (193-986) 10/25/16 16:20 Folate 4.5 ng/mL (>8.6) L 10/25/16 16:20 Specimen Type Clean catch urine 10/24/16 01:00 Urine Color Yellow (YELLOW) 10/24/16 01:00 Urine Appearance Clear (CLEAR) 10/24/16 01:00 Urine pH 6.0 (5.0 - 8.0) 10/24/16 01:00 Ur Specific [place] 1.010 (1.000-1.030) 10/24/16 01:00 Urine Protein Negative (NEGATIVE) 10/24/16 01:00 Urine Glucose (UA) Negative (NEGATIVE) 10/24/16 01:00 Urine Ketones Negative (NEGATIVE) 10/24/16 01:00 Urine Occult Blood 1+ (NEGATIVE) 10/24/16 01:00 Urine Nitrite Negative (NEGATIVE) 10/24/16 01:00 Urine Bilirubin Negative (NEGATIVE) 10/24/16 01:00 Urine Urobilinogen Normal (NORMAL) 10/24/16 01:00 Ur Leukocyte Esterase Negative (NEGATIVE) 10/24/16 01:00 Urine RBC 0-2 /HPF (NEGATIVE) 10/24/16 01:00 Urine WBC 0-2 /HPF (NEGATIVE) 10/24/16 01:00 Ur Squamous Epith Cells Rare /HPF (NEGATIVE) 10/24/16 01:00 Urine Bacteria Trace /HPF (NEGATIVE) 10/24/16 01:00 Urine Mucus Few /HPF (NEGATIVE) 10/24/16 01:00 Ur Culture Indicated? No/not indicated 10/24/16 01:00 - Plan (1) Sickle cell crisis Status: Acute Plan: CBC, CMP, Retic Count. IV Hydration. Pain mgmt (2) Leukocytosis Status: Acute Qualifiers: Leukocytosis type: L Plan: CBC, CMP, Retic Count. IV Hydration. Levaquin IV ANDiv rOCEPHIN 1 G DAILY. BLOOD CULTURE NEGATIVE (3) Sickle cell anemia Status: Chronic Qualifiers: Sickle-cell associated disorders: with unspecified crisis Qualified Code(s) : D57.00 - Hb-SS disease with crisis, unspecified; D57.0 - Hb-SS disease with crisis Plan: Monitor CBC
[2016-10-26] MEDS: LEVAQUIN PREMIX IV 500 MG 500 MG/100 ML BAG IV SCH (22:36)
[2016-10-26] MEDS ORDERED: PHENERGAN INJ 25 MG IV PRN (23:39)
[2016-10-27] MEDS: DILAUDID INJ IVP PRN ×4 (00:16→12:29)
[2016-10-27] MEDS: NS 1000 ML 1,000 ML IV SCH ×4 (02:00→10:42)
[2016-10-27 06:14] LABS: ALANINE AMINOTRANSFERASE 40 Units/L (12-78); ALBUMIN 3.2 g/dL (3.4-5.0); ALKALINE PHOSPHATASE 69 Units/L (46-116); ASPARTATE AMINO TRANSFERASE 46 Units/L (15-37); BLOOD UREA NITROGEN 3 mg/dL (7-18); CALCIUM 8.5 mg/dL (8.5-10.1); CARBON DIOXIDE 31.7 mmol/L (21-32); CHLORIDE 107 mmol/L (98-107); COR CA(FOR HYPOALB) 9.1 mg/dL (8.5-10.1); CREATININE 0.51 mg/dL (0.55-1.02); GLUCOSE 100 mg/dL (65-99); SODIUM 144 mmol/L (136-145); TOTAL PROTEIN 7.4 g/dL (6.4-8.2); eGFR BLACK RACES > 60 (>60); eGFR NON BLACK RACES > 60 (>60)
[2016-10-27 06:35] LABS: BASOPHILS # (AUTO) 0.1 X10^3/uL (0.0-0.1); BASOPHILS % (AUTO) 0.4 % (0.2-1.0); EOSINOPHILS # (AUTO) 0.8 x10^3/uL (0.0-0.2); EOSINOPHILS % (AUTO) 3.7 % (0.9-2.9); HEMATOCRIT 21.8 % (36.0-47.0); HEMOGLOBIN 7.6 g/dL (12.0-16.0); LYMPHOCYTES # (AUTO) 6.5 X10^3/uL (1.3-2.9); LYMPHOCYTES % (AUTO) 31.5 % (21.0-51.0); MEAN CORPUSCULAR HEMOGLOBIN 33.8 pg (27.0-34.0); MEAN CORPUSCULAR HGB CONC 34.8 g/dL (33.0-35.0); MEAN CORPUSCULAR VOLUME 97.3 fL (80.0-100.0); MONOCYTES # (AUTO) 2.4 x10^3/uL (0.3-0.8); MONOCYTES % (AUTO) 11.5 % (0.0-13.0); NEUTROPHILS # (AUTO) 10.9 x10^3/uL (2.2-4.8); NEUTROPHILS % (AUTO) 52.9 % (42.0-75.0); PLATELET COUNT 215 X10^3/uL (150.0-450.0); RED BLOOD COUNT 2.24 X10^6/uL (3.5-5.4); RED CELL DISTRIBUTION WIDTH 22.2 % (11.6-16.5)
[2016-10-27 06:49] LABS: WHITE BLOOD COUNT 20.6 X10^3/uL (3.6-10.0)
--- NOTE | 2016-10-27 06:50 | RAD ---
Chest AP portable Indication: Cardiomegaly. Comparison: October 23, 2016. Findings: There is no pneumothorax. Heart size is prominent. Patchy right lower lung opacity noted. Mild increased interstitial markings noted. Impression: Cardiomegaly and borderline edema. Right lower lung opacity could represent infiltrate. Correlate clinically for signs of CHF or pneumonia. Reported By:
[2016-10-27 08:24] LABS: BAND NEUTROPHILS % 4 % (0-10)
[2016-10-27 08:25] LABS: ANISOCYTOSIS 3+; HYPOCHROMASIA SLIGHT; PLATELET MORPHOLOGY COMMENT NORMAL (NORMAL); POIKILOCYTOSIS 3+; POLYCHROMASIA 1+
[2016-10-27 08:38] LABS: RETICULOCYTE % 21.66 % (0.8-2.2)
[2016-10-27] MEDS: COLACE CAP 100 MG PO SCH (08:39)
[2016-10-27] MEDS: ZOFRAN INJ 4 MG VIAL IVP PRN (08:40)
[2016-10-27] MEDS: MILK OF MAGNESIA PO SCH (08:40)
[2016-10-27] MEDS: ROCEPHIN VIAL 1 GM 1 GM in NS 50 ML IV + SPIKE MINIBAG* 50 ML IV SCH (08:41)
[2016-10-27 12:02] VITALS: BP 118/71
== END 2016-10-27 13:10 | disposition left against medical advice (07) | DRG 812 ==
LOC: MED/SURG 14:57
PROVIDERS: ADMIT Internal Medicine; ATTEND Internal Medicine
DX: D57.00 Hb-SS disease with crisis, unspecified (principal); M54.32 Sciatica, left side; M54.31 Sciatica, right side; D72.829 Elevated white blood cell count, unspecified
CPT/HCPCS: 36415; 71010; 74022; 80053; 81001; 82607; 82728; 82746; 83540; 83735; 84132; 84466; 85025; 85045; 87040; 94760; A4216; A4222; J0696; J1170; J1956; J2405; J2550

== ENCOUNTER 2017-04-16 16:58 | Inpatient (IN) | payer OTHER, MEDICAID ==
[2017-04-16 20:59] LABS: BASOPHILS # (AUTO) 0.1 X10^3/uL (0.0-0.1); BASOPHILS % (AUTO) 0.6 % (0.2-1.0); EOSINOPHILS # (AUTO) 0.1 x10^3/uL (0.0-0.2); EOSINOPHILS % (AUTO) 0.5 % (0.9-2.9); HEMATOCRIT 26.4 % (36.0-47.0); HEMOGLOBIN 9.1 g/dL (12.0-16.0); LYMPHOCYTES # (AUTO) 2.7 X10^3/uL (1.3-2.9); LYMPHOCYTES % (AUTO) 12.2 % (21.0-51.0); MEAN CORPUSCULAR HGB CONC 34.3 g/dL (33.0-35.0); MEAN CORPUSCULAR VOLUME 93.3 fL (80.0-100.0); MEAN PLATELET VOLUME 7.5 fL (7.4-11.0); MONOCYTES % (AUTO) 13.3 % (0.0-13.0); NEUTROPHILS # (AUTO) 16.5 x10^3/uL (2.2-4.8); NEUTROPHILS % (AUTO) 73.4 % (42.0-75.0); PLATELET COUNT 276 X10^3/uL (150.0-450.0); RED BLOOD COUNT 2.83 X10^6/uL (3.5-5.4); WHITE BLOOD COUNT 22.6 X10^3/uL (3.6-10.0)
[2017-04-16 21:18] LABS: ALANINE AMINOTRANSFERASE 26 Units/L (12-78); ALBUMIN 3.9 g/dL (3.4-5.0); ALKALINE PHOSPHATASE 73 Units/L (46-116); ASPARTATE AMINO TRANSFERASE 18 Units/L (15-37); BLOOD UREA NITROGEN 4 mg/dL (7-18); CALCIUM 9.6 mg/dL (8.5-10.1); CARBON DIOXIDE 27.2 mmol/L (21-32); CHLORIDE 103 mmol/L (98-107); CKMB % 4.6 % (<4); CREATINE KINASE 22 Units/L (26-192); CREATINE KINASE MB < 1.0 ng/mL (0-4.0); CREATININE 0.59 mg/dL (0.55-1.02); SODIUM 139 mmol/L (136-145); TOTAL PROTEIN 9.1 g/dL (6.4-8.2); TROPONIN I < 0.02 ng/mL (0-1.5); eGFR BLACK RACES > 60 (>60); eGFR NON BLACK RACES > 60 (>60)
[2017-04-16 21:22] LABS: BASOPHILS % (MANUAL) 1 % (0-1); PLATELET MORPHOLOGY COMMENT NORMAL (NORMAL)
[2017-04-16 21:24] LABS: TARGET CELLS NOTED
[2017-04-16 22:07] VITALS: BMI 25.3
[2017-04-16] MEDS: NS 1000 ML 1,000 ML IV SCH (22:09)
[2017-04-16] MEDS: MORPHINE SULFATE INJ 4 MG IVP PRN (22:10)
[2017-04-16] MEDS: DILAUDID INJ IVP SCH (23:45)
--- NOTE | 2017-04-17 00:41 | RAD ---
Chest, AP portable Indication: Sickle cell crisis, chest pain Comparison: 10/27/2016 Findings: Cardiac silhouette enlargement is unchanged. There is patchy right lower lobe opacity, zandra lar to prior. The left lung is essentially clear. There is no overt edema or significant pleural effu collins. Impression: Patchy right basilar opacity is similar to prior and could represent prominent vessels or recurrent o r chronic infiltrate. Correlation recommended. Cardiomegaly without overt edema. Reported By:
[2017-04-17] MEDS: DILAUDID INJ IVP SCH ×3 (03:08→10:13)
[2017-04-17] MEDS: NS 1000 ML 1,000 ML IV SCH ×3 (05:18→21:45)
[2017-04-17] MEDS: MORPHINE SULFATE INJ 4 MG IVP PRN (07:47)
[2017-04-17] MEDS ORDERED: DILAUDID INJ IVP PRN (11:01)
--- NOTE | 2017-04-17 13:50 | DR.H&P ---
H&P - History & Physical for Day of: H&P Date: 04/16/17 - Chief Complaint Chief Complaint: pain all over, nausea - Allergies Allergies/Adverse Reactions: Allergies Allergy/AdvReac Type Severity Reaction Status Date / Time No Known Drug Allergies Allergy Verified 10/23/16 16:37 - History of Present Illness History of Present Illness: 21 WF DIRECT ADMIT FROM DR MERCADO OFFICE WITH SYMPTOMS OF ACUTE SICKLE CELL CRISIS. PT HAD PMH OF SCD, ANEMIA. PLAN TO ADMIT FOR TREATMENT AND EVALUATION OF SCC. IV HYDRATION, PAIN AND NAUSEA CONTROL, SUPPLEMENTAL O2. ADMISSION LABS - Past Medical History Past Medical History: Anemia (Sickle Cell Anemia) Additional Medical History: Sickle Cell Anemia - Past Surgical History Surgical History: , Cholecystectomy, Other - Family History Family Medical History: Diabetes Mellitus, Cancer - Social History Does patient currently use any type of tobacco product: No Have you used tobacco products in the last 12 months: No Type of Tobacco Use: None Alcohol Use: None Drug Use: None - Medications Home Medications: NK [NK] 04/17/17 [History Confirmed 04/17/17] - Review of Systems Constitutional: Weakness Eyes: No Symptoms Reported ENT: No Symptoms Reported Respiratory: Shortness of Breath Cardiovascular: Chest Pain Gastrointestinal: Nausea Genitourinary: No Symptoms Reported Musculoskeletal: Shoulder Pain, Back Pain, Leg Pain, Neck Pain Skin: No Symptoms Reported Neurological: No Symptoms Reported - Physical Exam Vital Signs: Temperature 97.9 F Pulse Rate [Right Radial] 87 Respiratory Rate 20 Blood Pressure [Right Arm] 124/58 Blood Pressure [Left Arm] 121/74 Blood Pressure 118/71 O2 Sat by Pulse Oximetry 94 Oriented: Normal Eyes: Normal Ear: Normal Nose: Normal Throat: Normal Respiratory: RLL Diminished, LLL Diminished Cardiovascular: Tachycardia : Normal Auscultation: Bowel Sounds: Normal Palpation: Normal Tenderness: Normal Skin: Decreased Turgur Musculoskeletal: Back:Lumbar Psychiatric: Anxiety Affect: Anxious Speech Pattern: Clear, Appropriate - Assessment/Plan (1) Sickle cell crisis Status: Acute Plan: ADMIT, IV HYDRATION, SUPPLEMENTAL O2, IV PAIN CONTROL. ADMISSION LABS CBC CMP. RESUME HOME MEDICATION (2) Sickle cell anemia Qualifiers: Status: Chronic
[2017-04-17] MEDS: DILAUDID INJ IVP PRN ×3 (14:19→21:55)
[2017-04-17] MEDS: PHENERGAN INJ 25 MG IV PRN ×2 (14:20→21:46)
[2017-04-17] MEDS: BENADRYL INJ 50 MG VIAL IV PRN ×2 (14:20→21:45)
[2017-04-18] MEDS: BENADRYL INJ 50 MG VIAL IV PRN ×5 (01:46→21:06)
[2017-04-18] MEDS: DILAUDID INJ IVP PRN ×5 (01:46→21:06)
[2017-04-18] MEDS: PHENERGAN INJ 25 MG IV PRN ×4 (02:47→22:28)
[2017-04-18] MEDS: NS 1000 ML 1,000 ML IV SCH ×4 (05:24→22:47)
[2017-04-18] MEDS: ZITHROMAX TAB 250 MG PO SCH (10:40)
[2017-04-18] MEDS ORDERED: DUONEB 0.5 MG/3 MG NEB PRN (13:42)
[2017-04-18] MEDS ORDERED: SALINE 3% 15 ML NEB TX ONE (15:44)
[2017-04-19] MEDS: BENADRYL INJ 50 MG VIAL IV PRN ×6 (00:47→21:25)
[2017-04-19] MEDS: DILAUDID INJ IVP PRN ×6 (00:47→21:27)
[2017-04-19] MEDS: NS 1000 ML 1,000 ML IV SCH ×3 (01:00→21:25)
[2017-04-19] MEDS: PHENERGAN INJ 25 MG IV PRN ×3 (04:52→21:27)
[2017-04-19 04:55] LABS: ALANINE AMINOTRANSFERASE 15 Units/L (12-78); ALBUMIN 3.2 g/dL (3.4-5.0); ALKALINE PHOSPHATASE 57 Units/L (46-116); ASPARTATE AMINO TRANSFERASE 11 Units/L (15-37); BLOOD UREA NITROGEN 3 mg/dL (7-18); CALCIUM 8.9 mg/dL (8.5-10.1); CARBON DIOXIDE 27.4 mmol/L (21-32); CHLORIDE 103 mmol/L (98-107); COR CA(FOR HYPOALB) 9.5 mg/dL (8.5-10.1); COR NA(FOR HYPERGLY) 139 mmol/L (136-145); SODIUM 139 mmol/L (136-145); TOTAL PROTEIN 7.9 g/dL (6.4-8.2); eGFR BLACK RACES > 60 (>60); eGFR NON BLACK RACES > 60 (>60)
[2017-04-19] MEDS ORDERED: POTASSIUM CHL 40 MEQ/NS 0.45% 500 ML IV PRN (05:06)
[2017-04-19] MEDS ORDERED: K-LYTE EFFERVESCENT PO PRN (05:06)
[2017-04-19] MEDS ORDERED: POTASSIUM CHL 60 MEQ/NS 0.45% 500 ML IV PRN (05:06)
[2017-04-19] MEDS ORDERED: MAG-OX TAB PO PRN (05:06)
[2017-04-19] MEDS ORDERED: K-RIDER 10 MEQ/NS 100 ML 10 MEQ/100 ML BAG IV PRN (05:06)
[2017-04-19] MEDS ORDERED: POTASSIUM CHLORIDE LIQ 20 MEQ UDC PO PRN (05:06)
[2017-04-19] MEDS ORDERED: MAGNESIUM SULFATE 1 GM/100 mL PREMIX 1 GM/100 ML BAG IV PRN (05:06)
[2017-04-19 07:26] LABS: BASOPHILS # (AUTO) 0.1 X10^3/uL (0.0-0.1); BASOPHILS % (AUTO) 0.7 % (0.2-1.0); EOSINOPHILS # (AUTO) 0.4 x10^3/uL (0.0-0.2); EOSINOPHILS % (AUTO) 1.9 % (0.9-2.9); LYMPHOCYTES # (AUTO) 5.1 X10^3/uL (1.3-2.9); LYMPHOCYTES % (AUTO) 23.7 % (21.0-51.0); MEAN CORPUSCULAR HEMOGLOBIN 31.5 pg (27.0-34.0); MEAN CORPUSCULAR HGB CONC 34.3 g/dL (33.0-35.0); MEAN CORPUSCULAR VOLUME 91.8 fL (80.0-100.0); MEAN PLATELET VOLUME 7.4 fL (7.4-11.0); MONOCYTES # (AUTO) 2.8 x10^3/uL (0.3-0.8); MONOCYTES % (AUTO) 12.9 % (0.0-13.0); NEUTROPHILS # (AUTO) 13.2 x10^3/uL (2.2-4.8); NEUTROPHILS % (AUTO) 60.8 % (42.0-75.0); PLATELET COUNT 270 X10^3/uL (150.0-450.0); RED BLOOD COUNT 2.11 X10^6/uL (3.5-5.4); RED CELL DISTRIBUTION WIDTH 16.4 % (11.6-16.5); WHITE BLOOD COUNT 21.8 X10^3/uL (3.6-10.0)
[2017-04-19 07:37] LABS: HEMOGLOBIN 6.6 g/dL (12.0-16.0)
[2017-04-19 07:38] LABS: HEMATOCRIT 19.3 % (36.0-47.0)
[2017-04-19 07:39] LABS: ANISOCYTOSIS 2+; HYPOCHROMASIA 2+; PLATELET MORPHOLOGY COMMENT NORMAL (NORMAL); SICKLE CELLS 1+
[2017-04-19] MEDS: ZITHROMAX TAB 250 MG PO SCH (09:29)
--- NOTE | 2017-04-19 09:50 | RAD ---
HISTORY: Sickle cell crisis Study: PA and lateral views of the chest. Comparison: 04/16/2017 Findings: The cardiomediastinal silhouette is normal. New focal consolidation at the right lung base. Osseous s tructures demonstrate no acute abnormality. IMPRESSION: 1. New focal consolidation at the right lung base concerning for pneumonia pre Reported By:
[2017-04-19 15:51] LABS: BASOPHILS # (AUTO) 0.2 X10^3/uL (0.0-0.1); BASOPHILS % (AUTO) 0.9 % (0.2-1.0); EOSINOPHILS # (AUTO) 0.5 x10^3/uL (0.0-0.2); EOSINOPHILS % (AUTO) 2.5 % (0.9-2.9); LYMPHOCYTES # (AUTO) 3.8 X10^3/uL (1.3-2.9); LYMPHOCYTES % (AUTO) 17.4 % (21.0-51.0); MEAN CORPUSCULAR HEMOGLOBIN 31.3 pg (27.0-34.0); MEAN CORPUSCULAR HGB CONC 34.5 g/dL (33.0-35.0); MEAN CORPUSCULAR VOLUME 90.8 fL (80.0-100.0); MEAN PLATELET VOLUME 7.1 fL (7.4-11.0); MONOCYTES # (AUTO) 2.8 x10^3/uL (0.3-0.8); NEUTROPHILS # (AUTO) 14.4 x10^3/uL (2.2-4.8); NEUTROPHILS % (AUTO) 66.2 % (42.0-75.0); PLATELET COUNT 295 X10^3/uL (150.0-450.0); RED BLOOD COUNT 2.19 X10^6/uL (3.5-5.4); RED CELL DISTRIBUTION WIDTH 17.9 % (11.6-16.5); WHITE BLOOD COUNT 21.8 X10^3/uL (3.6-10.0)
[2017-04-19 15:57] LABS: HEMATOCRIT 19.9 % (36.0-47.0); HEMOGLOBIN 6.8 g/dL (12.0-16.0)
[2017-04-19 16:12] LABS: PLATELET MORPHOLOGY COMMENT NORMAL (NORMAL)
[2017-04-19 16:13] LABS: HYPOCHROMASIA 1+; MICROCYTOSIS 1+; POIKILOCYTOSIS 1+; SICKLE CELLS S
[2017-04-20] MEDS: DILAUDID INJ IVP PRN ×6 (01:21→22:43)
[2017-04-20] MEDS: BENADRYL INJ 50 MG VIAL IV PRN ×5 (01:22→21:33)
[2017-04-20] MEDS: PHENERGAN INJ 25 MG IV PRN ×3 (05:21→19:08)
[2017-04-20] MEDS: NS 1000 ML 1,000 ML IV SCH ×3 (06:09→12:54)
[2017-04-20 06:17] LABS: BASOPHILS # (AUTO) 0.1 X10^3/uL (0.0-0.1); BASOPHILS % (AUTO) 0.6 % (0.2-1.0); EOSINOPHILS # (AUTO) 0.8 x10^3/uL (0.0-0.2); EOSINOPHILS % (AUTO) 3.2 % (0.9-2.9); HEMATOCRIT 20.9 % (36.0-47.0); HEMOGLOBIN 7.1 g/dL (12.0-16.0); LYMPHOCYTES # (AUTO) 5.3 X10^3/uL (1.3-2.9); LYMPHOCYTES % (AUTO) 22.1 % (21.0-51.0); MEAN CORPUSCULAR HEMOGLOBIN 31.5 pg (27.0-34.0); MEAN CORPUSCULAR HGB CONC 34.1 g/dL (33.0-35.0); MEAN CORPUSCULAR VOLUME 92.4 fL (80.0-100.0); MEAN PLATELET VOLUME 7.7 fL (7.4-11.0); MONOCYTES # (AUTO) 2.7 x10^3/uL (0.3-0.8); MONOCYTES % (AUTO) 11.3 % (0.0-13.0); NEUTROPHILS # (AUTO) 15.2 x10^3/uL (2.2-4.8); NEUTROPHILS % (AUTO) 62.8 % (42.0-75.0); PLATELET COUNT 318 X10^3/uL (150.0-450.0); RED BLOOD COUNT 2.26 X10^6/uL (3.5-5.4); RED CELL DISTRIBUTION WIDTH 17.6 % (11.6-16.5); WHITE BLOOD COUNT 24.1 X10^3/uL (3.6-10.0)
[2017-04-20 06:22] LABS: ALANINE AMINOTRANSFERASE 15 Units/L (12-78); ALBUMIN 3.3 g/dL (3.4-5.0); ALKALINE PHOSPHATASE 60 Units/L (46-116); ASPARTATE AMINO TRANSFERASE 22 Units/L (15-37); BLOOD UREA NITROGEN 5 mg/dL (7-18); CALCIUM 8.7 mg/dL (8.5-10.1); CARBON DIOXIDE 27.1 mmol/L (21-32); CHLORIDE 102 mmol/L (98-107); COR CA(FOR HYPOALB) 9.3 mg/dL (8.5-10.1); CREATININE 0.63 mg/dL (0.55-1.02); SODIUM 140 mmol/L (136-145); TOTAL PROTEIN 8.2 g/dL (6.4-8.2); eGFR BLACK RACES > 60 (>60); eGFR NON BLACK RACES > 60 (>60)
[2017-04-20 06:48] LABS: ANISOCYTOSIS 1+; PLATELET MORPHOLOGY COMMENT NORMAL (NORMAL); POIKILOCYTOSIS 1+
[2017-04-20] MEDS: ZITHROMAX TAB 250 MG PO SCH (08:33)
[2017-04-20] MEDS ORDERED: NS 1000 ML 1,000 ML IV SCH (13:00)
--- NOTE | 2017-04-20 17:49 | PCM.PROG ---
Progress Note - Progress Note for Day of Date: 04/20/17 - Subjective Subjective: WAS ADMITTED ON 04/16/17 IN A SICKLE CELL CRISIS. CHEST XRAY THAT WAS OBTAINED YESTERDAY ALSO SUGGESTS PNEUMONIA AT THE RIGHT LUNG BASE. HER PRIMARY CARE PHYSICIAN HAS BEEN MONITORING HER HEMOGLOBIN AND HEMATOCRIT. HER PAIN HAS BEEN MANAGED WITH IV PAIN MEDICATIONS. TODAY, SHE IS ALERT AND ORIENTED, SITTING UP IN BED ON MORNING ROUNDS. SHE CONTINUES WITH COMPLAINTS OF GENERALIZED PAIN. ON EXAMINATION, HEART IS REGULAR IN RATE AND RHYTHM. BILATERAL LUNGS ARE CLEAR THROUGHOUT. ABODOMEN IS ROUND, SOFT, AND NON- TENDER WITH NORMAL BOWEL SOUNDS NOTED TO ALL QUADRANTS. THERE IS NORMAL RANGE OF MOTION NOTED TO ALL EXTREMITIES. HER VITAL SIGNS THIS MORNING ARE 98.6-96-18- 95%-109/60. ABNORMAL LAB VALUES TODAY INCLUDE THE FOLLOWING: WBC 24.1, RBD 2.26 , HGB 7.1, HCT 20.9, BUN 5, GLUCOSE 106, TOTAL BILIRUBIN 1.40, ALBUMIN 3.3, GLOBULIN 4.9. SHE IS CURRENTLY RECEIVING AZITHROMYCIN 250MG PO DAILY. WE WILL DISCONTINUE THIS AND START LEVAQUIN 500MG IV DAILY. OTHERWISE, WE WILL CONTINUE WITH CURRENT PLAN OF CARE. WE PLAN TO FOLLOW UP WITH AM LABS AND CHEST XRAY AND CONTINUE TO MONITOR PATIENT. - Past Medical Family Social History Past Med/Fam/Surg Hx: No changes since H&P Allergies: Allergies No Known Drug Allergies Allergy (Verified 10/23/16 16:37) - Review of Systems ROS: No change since H&P - Vital Signs and I&O's Vital Signs: Temperature 99.2 F Pulse Rate [Right Radial] 100 Pulse Rate 102 Respiratory Rate 18 Blood Pressure [Right Arm] 105/56 Blood Pressure [Left Arm] 106/57 Blood Pressure 118/71 O2 Sat by Pulse Oximetry 94 Intake and Output: Intake & Output 04/18/17 04/19/17 04/20/17 04/21/17 11:59 11:59 11:59 11:59 Intake Total 2620 3758 2852 1100 Balance 2620 3758 2852 1100 - Physical Exam Oriented: Normal Eyes: Normal Ear: Normal Nose: Normal Throat: Normal Respiratory: Right, Left, Generalized, Wheezes Cardiovascular: Normal : Normal Auscultation: Bowel Sounds: Normal Palpation: Normal Tenderness: Normal Skin: Decreased Turgur Musculoskeletal: Back:Lumbar Psychiatric: Anxiety Affect: Anxious Speech Pattern: Clear, Appropriate - Laboratory and Diagnostics Result Diagrams: 04/20/17 05:30 04/20/17 05:30 Labs: 04/18/17 16:16 Sputum - Expectorated Sputum Sputum Culture - Final 04/18/17 16:16 Sputum - Expectorated Sputum - Final Laboratory WBC 24.1 X10^3/uL (3.6-10.0) H 04/20/17 05:30 RBC 2.26 X10^6/uL (3.5-5.4) L 04/20/17 05:30 Hgb 7.1 g/dL (12.0-16.0) L 04/20/17 05:30 Hct 20.9 % (36.0-47.0) L 04/20/17 05:30 MCV 92.4 fL (80.0-100.0) 04/20/17 05:30 MCH 31.5 pg (27.0-34.0) 04/20/17 05:30 MCHC 34.1 g/dL (33.0-35.0) 04/20/17 05:30 RDW 17.6 % (11.6-16.5) H 04/20/17 05:30 Plt Count 318 X10^3/uL (150.0-450.0) 04/20/17 05:30 Plt Count Comment Adequate (ADEQUATE) 04/20/17 05:30 MPV 7.7 fL (7.4-11.0) 04/20/17 05:30 Neut % 62.8 % (42.0-75.0) 04/20/17 05:30 Lymph % 22.1 % (21.0-51.0) 04/20/17 05:30 Clinch % 11.3 % (0.0-13.0) 04/20/17 05:30 Eos % 3.2 % (0.9-2.9) H 04/20/17 05:30 Baso % 0.6 % (0.2-1.0) 04/20/17 05:30 Neut # 15.2 x10^3/uL (2.2-4.8) H 04/20/17 05:30 Lymph # 5.3 X10^3/uL (1.3-2.9) H 04/20/17 05:30 Clinch # 2.7 x10^3/uL (0.3-0.8) H 04/20/17 05:30 Eos # 0.8 x10^3/uL (0.0-0.2) H 04/20/17 05:30 Baso # 0.1 X10^3/uL (0.0-0.1) 04/20/17 05:30 Absolute Nucleated RBC 0.3 /100WBC 04/20/17 05:30 Total Counted 100 04/20/17 05:30 Neutrophils % (Manual) 70 % (39-76) 04/20/17 05:30 Lymphocytes % (Manual) 22 % (13-43) 04/20/17 05:30 Monocytes % (Manual) 8 % (4-9) 04/20/17 05:30 Eosinophils % (Manual) 4 % (0-6) 04/19/17 06:51 Basophils % (Manual) 1 % (0-1) 04/16/17 20:41 Plt Morphology Comment Normal (NORMAL) 04/20/17 05:30 RBC Morphology Abnormal (NORMAL) A 04/20/17 05:30 Hypochromasia 1+ A 04/19/17 15:44 Poikilocytosis 1+ A 04/20/17 05:30 Anisocytosis 1+ A 04/20/17 05:30 Microcytosis 1+ A 04/19/17 15:44 Sickle Cells S 04/19/17 15:44 Target Cells Noted 04/16/17 20:41 Sodium 140 mmol/L (136-145) 04/20/17 05:30 Corrected Sodium TNP 04/20/17 05:30 Potassium 3.7 mmol/L (3.5-5.1) 04/20/17 05:30 Chloride 102 mmol/L (98-107) 04/20/17 05:30 Carbon Dioxide 27.1 mmol/L (21-32) 04/20/17 05:30 BUN 5 mg/dL (7-18) L 04/20/17 05:30 Creatinine 0.63 mg/dL (0.55-1.02) 04/20/17 05:30 Est GFR (MDRD) Af Amer > 60 (>60) 04/20/17 05:30 Est GFR (MDRD) Non-Af > 60 (>60) 04/20/17 05:30 Glucose 106 mg/dL (65-99) H 04/20/17 05:30 Calcium 8.7 mg/dL (8.5-10.1) 04/20/17 05:30 Corrected Calcium 9.3 mg/dL (8.5-10.1) 04/20/17 05:30 Magnesium 1.8 mg/dL (1.7-2.9) 04/19/17 04:29 Iron 32 ug/dL (50-175) L 04/16/17 20:41 Transferrin 189 mg/dL (202-364) L 04/16/17 20:41 Ferritin 422 ng/mL (8-252) H 04/16/17 20:41 Total Bilirubin 1.40 mg/dL (0.2-1.0) H 04/20/17 05:30 AST 22 Units/L (15-37) 04/20/17 05:30 ALT 15 Units/L (12-78) 04/20/17 05:30 Alkaline Phosphatase 60 Units/L (46-116) 04/20/17 05:30 Creatine Kinase 22 Units/L (26-192) L 04/16/17 20:41 CK-MB (CK-2) < 1.0 ng/mL (0-4.0) 04/16/17 20:41 CK/CKMB % Calc 4.6 % (<4) 04/16/17 20:41 Troponin I < 0.02 ng/mL (0-1.5) 04/16/17 20:41 Total Protein 8.2 g/dL (6.4-8.2) 04/20/17 05:30 Albumin 3.3 g/dL (3.4-5.0) L 04/20/17 05:30 Globulin 4.9 g/dL (2.5-4.5) H 04/20/17 05:30 Albumin/Globulin Ratio 0.7 Ratio (1.1-2.1) L 04/20/17 05:30 Vitamin B12 246 pg/mL (193-986) 04/16/17 20:41 Folate 12.8 ng/mL (>8.6) 04/16/17 20:41 - Plan (1) Sickle cell crisis Status: Acute Plan: MONITOR H&H, CONTINUE IV FLUIDS AND IV PAIN MEDICATIONS, CONTINUE TO MONITOR (2) Pneumonia involving right lung Status: Acute Qualifiers: Pneumonia type: due to unspecified organism Lung location: lower lobe of lung Qualified Code(s): J18.1 - Lobar pneumonia, unspecified organism Plan: LEVAQUIN 500MG IV DAILY, CONTINUE NEB TX, CONTINUE TO MONITOR LABS AND CHEST XRAY
[2017-04-20] MEDS: LEVAQUIN PREMIX IV 500 MG 500 MG/100 ML BAG IV SCH (18:40)
[2017-04-21] MEDS: DILAUDID INJ IVP PRN ×2 (02:57→07:06)
[2017-04-21] MEDS: PHENERGAN INJ 25 MG IV PRN (02:57)
[2017-04-21 06:32] LABS: BASOPHILS # (AUTO) 0.2 X10^3/uL (0.0-0.1); BASOPHILS % (AUTO) 0.7 % (0.2-1.0); EOSINOPHILS # (AUTO) 0.6 x10^3/uL (0.0-0.2); EOSINOPHILS % (AUTO) 2.7 % (0.9-2.9); HEMATOCRIT 20.5 % (36.0-47.0); HEMOGLOBIN 7.2 g/dL (12.0-16.0); LYMPHOCYTES # (AUTO) 4.2 X10^3/uL (1.3-2.9); LYMPHOCYTES % (AUTO) 18.9 % (21.0-51.0); MEAN CORPUSCULAR HEMOGLOBIN 32.5 pg (27.0-34.0); MEAN CORPUSCULAR HGB CONC 34.9 g/dL (33.0-35.0); MEAN CORPUSCULAR VOLUME 93.1 fL (80.0-100.0); MEAN PLATELET VOLUME 7.3 fL (7.4-11.0); MONOCYTES # (AUTO) 2.8 x10^3/uL (0.3-0.8); MONOCYTES % (AUTO) 12.6 % (0.0-13.0); NEUTROPHILS # (AUTO) 14.4 x10^3/uL (2.2-4.8); NEUTROPHILS % (AUTO) 65.1 % (42.0-75.0); PLATELET COUNT 345 X10^3/uL (150.0-450.0); RED CELL DISTRIBUTION WIDTH 18.4 % (11.6-16.5); WHITE BLOOD COUNT 22.1 X10^3/uL (3.6-10.0)
[2017-04-21 06:36] LABS: ALANINE AMINOTRANSFERASE 14 Units/L (12-78); ALBUMIN 3.2 g/dL (3.4-5.0); ALKALINE PHOSPHATASE 60 Units/L (46-116); ASPARTATE AMINO TRANSFERASE 14 Units/L (15-37); BLOOD UREA NITROGEN 5 mg/dL (7-18); CALCIUM 8.9 mg/dL (8.5-10.1); CARBON DIOXIDE 27.9 mmol/L (21-32); CHLORIDE 103 mmol/L (98-107); COR CA(FOR HYPOALB) 9.5 mg/dL (8.5-10.1); COR NA(FOR HYPERGLY) 140 mmol/L (136-145); CREATININE 0.61 mg/dL (0.55-1.02); SODIUM 140 mmol/L (136-145); eGFR BLACK RACES > 60 (>60); eGFR NON BLACK RACES > 60 (>60)
--- NOTE | 2017-04-21 08:18 | RAD ---
Examination: Portable AP chest History: SOB, sickle cell Comparison reference 04/19/2017 Findings: Continued upper normal heart size. Central vascular congestion as before. Persistent but im proving infiltrate at the right base. No new abnormality noted. Impression: Persistent but improving parenchymal abnormalities with no new lesion. This may represent pneumonia although with the history of sickle cell, pulmonary thromboembolism should be clinically c onsidered. Reported By:
[2017-04-21 08:27] LABS: BAND NEUTROPHILS % 1 % (0-10); BASOPHILS % (MANUAL) 2 % (0-1)
[2017-04-21 08:28] LABS: PLATELET MORPHOLOGY COMMENT NORMAL (NORMAL)
[2017-04-21 08:35] VITALS: BP 107/51
[2017-04-21] MEDS: LEVAQUIN PREMIX IV 500 MG 500 MG/100 ML BAG IV SCH (09:13)
[2017-04-21] MEDS: BENADRYL INJ 50 MG VIAL IV PRN (09:14)
== END 2017-04-21 10:10 | disposition home or self-care (01) | DRG 811 ==
LOC: MED/SURG 16:58 → OBSVTOIN 04-19 08:00
PROVIDERS: ADMIT Internal Medicine; ATTEND Internal Medicine
DX: D57.819 Other sickle-cell disorders with crisis, unspecified (principal); R06.02 Shortness of breath; J18.8 Other pneumonia, unspecified organism; R11.2 Nausea with vomiting, unspecified
CPT/HCPCS: 36415; 71045; 71046; 80053; 82550; 82553; 82607; 82728; 82746; 83540; 83735; 84466; 84484; 85025; 87070; 87205; 93005; 93010; 94640; 94760; A4216; A4222; Q0144; G0378; J1170; J1200; J1956; J2270; J2550

== ENCOUNTER 2017-07-26 04:16 | Inpatient (IN) | payer MEDICAID ==
[2017-07-26 04:26] VITALS: BMI 25.3
--- NOTE | 2017-07-26 04:41 | DR.GENAD ---
HPI - PCP Primary Care Physician: YOAV - Complaint/Symptoms Chief Complaint:: "I GOT SICKLE CELL AND I AM HURTING REALLY BAD." - Nurses notes reviewed Nurses Notes Review: Yes - Source History Provided: Patient - Mode of Arrival Mode of Arrival: Wheelchair - Timing Onset of Chief Complaint: 07/26/17 Came on: Gradually - Duration How lon Duration: Days - Location Location: [facility] - Severity Severity: Moderate - Associated Signs and Symptoms Associated Signs and Symptoms: achy joints and back <ALEX CHANDLER - Last Filed: 07/26/17 06:54> PMH - PMH Past Medical History: Yes Past Medical History Comment: SICKLE CELL Past Surgical History: Yes Surgical History: , Cholecystectomy, Other - Family History History of Family Medical Conditions: Yes Family Medical History: Diabetes Mellitus, Cancer - Social History Type of Tobacco Use: None Does any household member use tobacco: No Alcohol Use: None Do you use any recreational Drugs:: No Lives With: Family Lives Where: Home - infectious screening Have you traveled outside the country in the last 6 months?: No Isolation: Standard <ALEX CHANDLER - Last Filed: 07/26/17 06:54> ROS - Review of Systems Constitutional: No Symptoms Reported Eyes: No Symptoms Reported ENTM: No Symptoms Reported Respiratoy: No Symptoms Reported Cardiovascular: No Symptoms Reported Gastrointestinal/Abdominal: No Symptoms Reported Genitourinary: No Symptoms Reported Neurological: No Symptoms Reported Musculoskeletal: Joint Pain Integumentary: No Symptoms Reported Hematologic/Lymphatic: No Symptoms Reported Endocrine: No Symptoms Reported Psychiatric: No Symptoms Reported All Other Systems: Reviewed and Negative <ALEX CHANDLER - Last Filed: 07/26/17 06:54> PE - General Limitations: No Limitations General Appearance: Alert - Head Head Exam: Normal Inspection - Eyes Eye exam: Normal Appearance, EOMI. negative: Scleral Icterus, Conjunctival Injection - ENT ENT Exam: Normal Exam Mouth Exam: Normal Inspection Throat Exam: Normal Inspection - Neck Neck Exam: Normal Inspection, Full ROM, Trachea Midline - Chest Chest Inspection: Normal Inspection - Respiratory Respiratory Exam: Normal Lung Sounds Bilat. negative: Accessory Muscle Use, Respiratory Distress Respiratory Exam: Bilateral Clear to Auscultation - Cardiovascular Cardiovascular Exam: Regular Rate - Abdominal Exam Abdominal Exam: Normal Inspection, Normal Bowel Sounds, Soft - Extremities Extremities Exam: Normal Inspection, Full ROM - Back Back Exam: Normal Inspection - Neurologic Neurological Exam: Alert, Oriented X3, CN II-XII Intact - Psychiatric Psychiatric Exam: Other (pain affect) - Skin Skin Exam: Intact, Normal Color <ALEX CHANDLER - Last Filed: 07/26/17 06:54> - Vital Signs Vitals: Temperature 98.1 F Pulse Rate [Left Brachial] 93 Pulse Rate 92 Respiratory Rate 18 Blood Pressure [Left Arm] 125/85 Blood Pressure [Right Arm] 108/61 Blood Pressure 133/67 O2 Sat by Pulse Oximetry 100 ROR - Labs Reviewed Result Diagrams: 07/26/17 04:55 07/26/17 04:55 <ALEX CHANDLER - Last Filed: 07/26/17 06:54> - Labs Reviewed Laboratory Results Reviewed?: Yes (retic count 7.92%, WBC elevated at 24.7) Result Diagrams: 07/26/17 04:55 07/26/17 04:55 <JULIOCESAR HURST - Last Filed: 07/26/17 11:03> - Labs Reviewed Laboratory: WBC 24.7 X10^3/uL (3.6-10.0) H 07/26/17 04:55 RBC 3.18 X10^6/uL (3.5-5.4) L 07/26/17 04:55 Hgb 10.4 g/dL (12.0-16.0) L 07/26/17 04:55 Hct 30.1 % (36.0-47.0) L 07/26/17 04:55 MCV 94.5 fL (80.0-100.0) 07/26/17 04:55 MCH 32.6 pg (27.0-34.0) 07/26/17 04:55 MCHC 34.5 g/dL (33.0-35.0) 07/26/17 04:55 RDW 18.1 % (11.6-16.5) H 07/26/17 04:55 Plt Count 308 X10^3/uL (150.0-450.0) 07/26/17 04:55 Plt Count Comment Adequate (ADEQUATE) 07/26/17 04:55 MPV 6.7 fL (7.4-11.0) L 07/26/17 04:55 Neut % (Auto) 76.7 % (42.0-75.0) H 07/26/17 04:55 Lymph % (Auto) 7.8 % (21.0-51.0) L 07/26/17 04:55 [place] % (Auto) 14.3 % (0.0-13.0) H 07/26/17 04:55 Eos % (Auto) 1.0 % (0.9-2.9) 07/26/17 04:55 Baso % (Auto) 0.2 % (0.2-1.0) 07/26/17 04:55 Neut # (Auto) 18.9 x10^3/uL (2.2-4.8) H 07/26/17 04:55 Lymph # (Auto) 1.9 X10^3/uL (1.3-2.9) 07/26/17 04:55 [place] # (Auto) 3.5 x10^3/uL (0.3-0.8) H 07/26/17 04:55 Eos # (Auto) 0.2 x10^3/uL (0.0-0.2) 07/26/17 04:55 Baso # (Auto) 0.1 X10^3/uL (0.0-0.1) 07/26/17 04:55 Absolute Nucleated RBC 0.3 /100WBC 07/26/17 04:55 Total Counted 100 07/26/17 04:55 Neutrophils % (Manual) 81 % (39-76) H 07/26/17 04:55 Lymphocytes % (Manual) 9 % (13-43) L 07/26/17 04:55 Monocytes % (Manual) 10 % (4-9) H 07/26/17 04:55 Plt Morphology Comment Normal (NORMAL) 07/26/17 04:55 RBC Morphology Abnormal (NORMAL) A 07/26/17 04:55 Hypochromasia Slight A 07/26/17 04:55 Poikilocytosis Present 07/26/17 04:55 Absolute Retic 0.2508 10^6/uL 07/26/17 04:55 Percent Retic 7.92 % (0.8-2.2) H 07/26/17 04:55 Sodium 137 mmol/L (136-145) 07/26/17 04:55 Corrected Sodium 137 mmol/L (136-145) 07/26/17 04:55 Potassium 3.3 mmol/L (3.5-5.1) L 07/26/17 04:55 Chloride 102 mmol/L (98-107) 07/26/17 04:55 Carbon Dioxide 24.7 mmol/L (21-32) 07/26/17 04:55 BUN 5 mg/dL (7-18) L 07/26/17 04:55 Creatinine 0.68 mg/dL (0.55-1.02) 07/26/17 04:55 Est GFR (MDRD) Af Amer > 60 (>60) 07/26/17 04:55 Est GFR (MDRD) Non-Af > 60 (>60) 07/26/17 04:55 Glucose 118 mg/dL (65-99) H 07/26/17 04:55 Calcium 8.6 mg/dL (8.5-10.1) 07/26/17 04:55 <ALEX CHANDLER - Last Filed: 07/26/17 06:54> <JULIOCESAR HURST - Last Filed: 07/26/17 11:03> - Discharge Plan Condition: Stable - Follow ups/Referrals Follow ups/Referrals: NFD,None [Primary Care Provider] - 3 days - Instructions Additional Notes - Additional Notes Additional Notes: assumed care of pt at 8am shift change. Pt with generalized aches/pains typical of her sickle cell. Spoke with edwin Patino to admit for SC, he requests LDH and CMP <JULIOCESAR HURST - Last Filed: 07/26/17 11:03>
[2017-07-26] MEDS ORDERED: NS 500 ML IV 1,000 ML IV ONE (04:47)
[2017-07-26] MEDS ORDERED: BENADRYL INJ 50 MG VIAL IVP ONE ×2 (04:49→07:31)
[2017-07-26] MEDS ORDERED: DEMEROL INJ IVP ONE (04:50)
[2017-07-26] MEDS ORDERED: NS 500 ML IV 500 ML IV ONE (04:51)
[2017-07-26] MEDS ORDERED: BENADRYL INJ 50 MG VIAL ONE ×2 (05:05→07:37)
[2017-07-26] MEDS ORDERED: DEMEROL INJ ONE (05:06)
[2017-07-26 05:15] LABS: BASOPHILS # (AUTO) 0.1 X10^3/uL (0.0-0.1); BLOOD UREA NITROGEN 5 mg/dL (7-18); CALCIUM 8.6 mg/dL (8.5-10.1); CARBON DIOXIDE 24.7 mmol/L (21-32); CHLORIDE 102 mmol/L (98-107); COR NA(FOR HYPERGLY) 137 mmol/L (136-145); CREATININE 0.68 mg/dL (0.55-1.02); EOSINOPHILS # (AUTO) 0.2 x10^3/uL (0.0-0.2); LYMPHOCYTES # (AUTO) 1.9 X10^3/uL (1.3-2.9); LYMPHOCYTES % (AUTO) 7.8 % (21.0-51.0); RED CELL DISTRIBUTION WIDTH 18.1 % (11.6-16.5); SODIUM 137 mmol/L (136-145); eGFR BLACK RACES > 60 (>60); eGFR NON BLACK RACES > 60 (>60)
[2017-07-26 05:34] LABS: BASOPHILS % (AUTO) 0.2 % (0.2-1.0); HEMATOCRIT 30.1 % (36.0-47.0); HEMOGLOBIN 10.4 g/dL (12.0-16.0); MEAN CORPUSCULAR HEMOGLOBIN 32.6 pg (27.0-34.0); MEAN CORPUSCULAR HGB CONC 34.5 g/dL (33.0-35.0); MEAN CORPUSCULAR VOLUME 94.5 fL (80.0-100.0); MEAN PLATELET VOLUME 6.7 fL (7.4-11.0); MONOCYTES # (AUTO) 3.5 x10^3/uL (0.3-0.8); MONOCYTES % (AUTO) 14.3 % (0.0-13.0); NEUTROPHILS # (AUTO) 18.9 x10^3/uL (2.2-4.8); NEUTROPHILS % (AUTO) 76.7 % (42.0-75.0); PLATELET COUNT 308 X10^3/uL (150.0-450.0); RED BLOOD COUNT 3.18 X10^6/uL (3.5-5.4); WHITE BLOOD COUNT 24.7 X10^3/uL (3.6-10.0)
[2017-07-26 05:39] LABS: HYPOCHROMASIA SLIGHT; PLATELET MORPHOLOGY COMMENT NORMAL (NORMAL); POIKILOCYTOSIS PRESENT
[2017-07-26] MEDS ORDERED: NUBAIN INJ 10 IM ONE (06:35)
[2017-07-26] MEDS ORDERED: NUBAIN INJ 10 ONE (06:37)
[2017-07-26] MEDS ORDERED: MORPHINE SULFATE INJ 4 MG IVP ONE ×2 (06:55→07:31)
[2017-07-26] MEDS ORDERED: MORPHINE SULFATE INJ 4 MG ONE ×2 (06:57→07:37)
[2017-07-26] MEDS ORDERED: POTASSIUM CHLORIDE LIQ 20 MEQ UDC PO ONE (07:18)
[2017-07-26] MEDS ORDERED: POTASSIUM CHLORIDE LIQ 20 MEQ UDC ONE (07:27)
[2017-07-26 07:42] LABS: RETICULOCYTE % 7.92 % (0.8-2.2)
[2017-07-26] MEDS ORDERED: NS 1000 ML 1,000 ML IV ONE (07:53)
[2017-07-26] MEDS ORDERED: NS 1000 ML 1,000 ML ONE (07:56)
[2017-07-26] MEDS ORDERED: DILAUDID INJ IVP ONE (08:58)
[2017-07-26] MEDS ORDERED: DILAUDID INJ ONE (09:21)
[2017-07-26 11:29] LABS: ALANINE AMINOTRANSFERASE 59 Units/L (12-78); ALBUMIN 3.4 g/dL (3.4-5.0); ALKALINE PHOSPHATASE 86 Units/L (46-116); ASPARTATE AMINO TRANSFERASE 74 Units/L (15-37); BLOOD UREA NITROGEN 4 mg/dL (7-18); CALCIUM 8.4 mg/dL (8.5-10.1); CARBON DIOXIDE 25.8 mmol/L (21-32); CHLORIDE 106 mmol/L (98-107); COR NA(FOR HYPERGLY) 140 mmol/L (136-145); CREATININE 0.59 mg/dL (0.55-1.02); LACTATE DEHYDROGENASE 399 Units/L (81-234); TOTAL PROTEIN 8.1 g/dL (6.4-8.2); eGFR BLACK RACES > 60 (>60); eGFR NON BLACK RACES > 60 (>60)
[2017-07-26 11:31] LABS: SODIUM 140 mmol/L (136-145)
[2017-07-26] MEDS ORDERED: POTASSIUM CHL 60 MEQ/NS 0.45% 500 ML IV PRN (11:54)
[2017-07-26] MEDS ORDERED: POTASSIUM CHLORIDE LIQ 20 MEQ UDC PO PRN (11:54)
[2017-07-26] MEDS ORDERED: K-LYTE EFFERVESCENT PO PRN (11:54)
[2017-07-26] MEDS ORDERED: MAGNESIUM SULFATE 1 GM/100 mL PREMIX 1 GM/100 ML BAG IV PRN (11:54)
[2017-07-26] MEDS ORDERED: POTASSIUM CHL 40 MEQ/NS 0.45% 500 ML IV PRN (11:54)
[2017-07-26] MEDS: NS 1000 ML 1,000 ML IV SCH ×2 (12:15→20:58)
[2017-07-26] MEDS: DILAUDID INJ IVP PRN ×3 (13:33→21:24)
[2017-07-26 17:32] LABS: BILIRUBIN,URINE NEGATIVE (NEGATIVE); BLOOD/HEMOGLOBIN,URINE NEGATIVE (NEGATIVE); GLUCOSE, URINE NEGATIVE (NEGATIVE); KETONES,URINE NEGATIVE (NEGATIVE); LEUKOCYTE ESTERASE ,URINE NEGATIVE (NEGATIVE); NITRITES,URINE NEGATIVE (NEGATIVE); PROTEIN,URINE NEGATIVE (NEGATIVE); UROBILINOGEN,URINE NORMAL (NORMAL)
[2017-07-26 17:41] LABS: APPEARANCE,URINE CLEAR (CLEAR); COLOR,URINE YELLOW (YELLOW)
[2017-07-27] MEDS: DILAUDID INJ IVP PRN ×6 (01:07→18:22)
[2017-07-27] MEDS: NS 1000 ML 1,000 ML IV SCH ×5 (04:02→20:59)
[2017-07-27 05:46] LABS: BASOPHILS % (AUTO) 0.2 % (0.2-1.0); EOSINOPHILS # (AUTO) 0.2 x10^3/uL (0.0-0.2); HEMATOCRIT 26.3 % (36.0-47.0); HEMOGLOBIN 9.3 g/dL (12.0-16.0); LYMPHOCYTES # (AUTO) 2.1 X10^3/uL (1.3-2.9); LYMPHOCYTES % (AUTO) 8.6 % (21.0-51.0); MEAN CORPUSCULAR HEMOGLOBIN 33.4 pg (27.0-34.0); MEAN CORPUSCULAR HGB CONC 35.4 g/dL (33.0-35.0); MEAN CORPUSCULAR VOLUME 94.3 fL (80.0-100.0); MEAN PLATELET VOLUME 6.9 fL (7.4-11.0); MONOCYTES # (AUTO) 4.1 x10^3/uL (0.3-0.8); MONOCYTES % (AUTO) 16.8 % (0.0-13.0); NEUTROPHILS # (AUTO) 17.9 x10^3/uL (2.2-4.8); NEUTROPHILS % (AUTO) 73.4 % (42.0-75.0); PLATELET COUNT 263 X10^3/uL (150.0-450.0); RED BLOOD COUNT 2.79 X10^6/uL (3.5-5.4); RED CELL DISTRIBUTION WIDTH 17.7 % (11.6-16.5); WHITE BLOOD COUNT 24.4 X10^3/uL (3.6-10.0)
[2017-07-27 05:55] LABS: ALANINE AMINOTRANSFERASE 66 Units/L (12-78); ALBUMIN 3.4 g/dL (3.4-5.0); ALKALINE PHOSPHATASE 107 Units/L (46-116); ASPARTATE AMINO TRANSFERASE 64 Units/L (15-37); BLOOD UREA NITROGEN 3 mg/dL (7-18); CALCIUM 8.6 mg/dL (8.5-10.1); CARBON DIOXIDE 27.7 mmol/L (21-32); CHLORIDE 102 mmol/L (98-107); COR NA(FOR HYPERGLY) 139 mmol/L (136-145); CREATININE 0.53 mg/dL (0.55-1.02); SODIUM 138 mmol/L (136-145); TOTAL PROTEIN 8.2 g/dL (6.4-8.2); eGFR BLACK RACES > 60 (>60); eGFR NON BLACK RACES > 60 (>60)
[2017-07-27 06:12] LABS: HYPOCHROMASIA SLIGHT; PLATELET MORPHOLOGY COMMENT NORMAL (NORMAL); POIKILOCYTOSIS PRESENT
[2017-07-27] MEDS: K-RIDER 10 MEQ/NS 100 ML 10 MEQ/100 ML BAG IV PRN ×2 (08:25→09:30)
[2017-07-27] MEDS: ULTRAM PO SCH ×4 (08:26→20:59)
[2017-07-27] MEDS: MORPHINE SULFATE INJ 2 MG INJ IVP PRN (21:27)
[2017-07-28] MEDS: MORPHINE SULFATE INJ 2 MG INJ IVP PRN ×8 (00:27→22:30)
[2017-07-28] MEDS: NS 1000 ML 1,000 ML IV SCH ×4 (00:28→20:45)
[2017-07-28 05:04] LABS: BASOPHILS # (AUTO) 0.1 X10^3/uL (0.0-0.1); BASOPHILS % (AUTO) 0.3 % (0.2-1.0); EOSINOPHILS # (AUTO) 0.4 x10^3/uL (0.0-0.2); EOSINOPHILS % (AUTO) 1.8 % (0.9-2.9); HEMATOCRIT 23.6 % (36.0-47.0); HEMOGLOBIN 8.4 g/dL (12.0-16.0); LYMPHOCYTES # (AUTO) 1.8 X10^3/uL (1.3-2.9); LYMPHOCYTES % (AUTO) 8.7 % (21.0-51.0); MEAN CORPUSCULAR HEMOGLOBIN 33.2 pg (27.0-34.0); MEAN CORPUSCULAR HGB CONC 35.6 g/dL (33.0-35.0); MEAN CORPUSCULAR VOLUME 93.5 fL (80.0-100.0); MEAN PLATELET VOLUME 7.1 fL (7.4-11.0); MONOCYTES # (AUTO) 2.9 x10^3/uL (0.3-0.8); MONOCYTES % (AUTO) 14.1 % (0.0-13.0); NEUTROPHILS # (AUTO) 15.5 x10^3/uL (2.2-4.8); NEUTROPHILS % (AUTO) 75.1 % (42.0-75.0); PLATELET COUNT 237 X10^3/uL (150.0-450.0); RED BLOOD COUNT 2.52 X10^6/uL (3.5-5.4); RETICULOCYTE % 6.35 % (0.8-2.2); WHITE BLOOD COUNT 20.6 X10^3/uL (3.6-10.0)
[2017-07-28 05:11] LABS: ALANINE AMINOTRANSFERASE 51 Units/L (12-78); ALBUMIN 3.2 g/dL (3.4-5.0); ALKALINE PHOSPHATASE 107 Units/L (46-116); ASPARTATE AMINO TRANSFERASE 30 Units/L (15-37); BLOOD UREA NITROGEN 4 mg/dL (7-18); CALCIUM 8.8 mg/dL (8.5-10.1); CARBON DIOXIDE 26.6 mmol/L (21-32); CHLORIDE 102 mmol/L (98-107); COR CA(FOR HYPOALB) 9.4 mg/dL (8.5-10.1); CREATININE 0.47 mg/dL (0.55-1.02); SODIUM 138 mmol/L (136-145); eGFR BLACK RACES > 60 (>60); eGFR NON BLACK RACES > 60 (>60)
[2017-07-28] MEDS: ULTRAM PO SCH ×4 (08:52→20:45)
--- NOTE | 2017-07-28 20:17 | DR.H&P ---
H&P - History & Physical for Day of: H&P Date: 07/26/17 - Chief Complaint Chief Complaint: GENERALIZED PAIN - Allergies Allergies/Adverse Reactions: Allergies Allergy/AdvReac Type Severity Reaction Status Date / Time No Known Drug Allergies Allergy Verified 07/26/17 04:20 [NKDA] - History of Present Illness History of Present Illness: IS A 21 YEAR OLD PATIENT OF DR.SINCLAIR Hall. SHE PRESENTED TO THE ER WITH COMPLAINTS OF SEVERE PAIN ALL OVER. PATIENT REPORTS I GOT SICKLE CELL AND I AM HURTING REALLY BAD. PATIENT REPORTS THAT SYMPTOMS STARTED THREE DAYS AGO. ASSOCIATED SYMPTOMS INCLUDE ACHY JOINTS AND BACK PAIN. SHE DENIES FEVER, COUGH, OR DIARRHEA. ON ARRIVAL, VITALS WERE 98.1-92 -20-100%-133/67. LABS WERE OBTAINED. ABNORMAL LAB VALUES INCLUDE THE FOLLOWING: WBC 24.7, RBC 3.18, HGB 10.4, HCT 30.1, POTASSIUM 3.3, BUN 5, GLUCOSE 118. URINALYSIS IS UNREMARKABLE. SHE WAS GIVEN DILAUDID 2MG IVP IN THE ER WITH NO IMPROVEMENT IN PAIN NOTED. PATIENT WAS ADMITTED FOR FURTHER EVALUATION AND TREATMENT. SHE WAS STARTED ON NORMAL SALINE AT 150ML/HR, DILAUDID 2MG IV Q4H PRN PAIN AND THE POTASSIUM PROTOCOL. WE PLAN TO FOLLOW UP WITH AM LABS AND CONTINUE TO MONITOR PATIENT. - Past Medical History Past Medical History: Anemia, Asthma, Depression Additional Medical History: Sickle cell disease - Past Surgical History Surgical History: , Cholecystectomy, Other Additional Surgical History: D&C - Family History Family Medical History: Diabetes Mellitus, Cancer - Social History Does patient currently use any type of tobacco product: No Have you used tobacco products in the last 12 months: No Type of Tobacco Use: None Does any household member use tobacco: No Alcohol Use: None Drug Use: None - Medications Home Medications: No Known Home Medications 1 each XX CONTINUOUS 07/26/17 [History Confirmed 07/26] - Review of Systems Constitutional: See HPI, Other (GENERALIZED PAIN AND ACHING ) Eyes: No Symptoms Reported ENT: No Symptoms Reported Respiratory: No Symptoms Reported Cardiovascular: No Symptoms Reported Gastrointestinal: No Symptoms Reported Genitourinary: No Symptoms Reported Musculoskeletal: Back Pain, Other (JOINT PAIN ) Skin: No Symptoms Reported Neurological: No Symptoms Reported - Physical Exam Vital Signs: Temperature 98.8 F Pulse Rate [Left Brachial] 91 Pulse Rate 92 Respiratory Rate 16 Blood Pressure [Left Arm] 120/75 Blood Pressure [Right Arm] 108/61 Blood Pressure 133/67 O2 Sat by Pulse Oximetry 99 Oriented: Normal Eyes: Normal Ear: Normal Nose: Normal Throat: Normal Respiratory: Clear Throughout Cardiovascular: Normal : Normal Auscultation: Bowel Sounds: Normal Palpation: Normal Tenderness: Normal Skin: Normal Musculoskeletal: Back:Lumbar (GENERALIZED JOINT PAIN AND LUMBAR PAIN ) Psychiatric: Normal Mood Description: Calm Affect: Normal Speech Pattern: Clear - Assessment/Plan (1) Sickle cell crisis Status: Acute Plan: NORMAL SALINE AT 150ML/HR, DILAUDID 2MG IV Q4H PRN PAIN (2) Hypokalemia Status: Acute Plan: POTASSIUM PROTOCOL, CONTINUE TO MONITOR
[2017-07-28] MEDS: MILK OF MAGNESIA PO SCH (20:48)
[2017-07-28] MEDS ORDERED: COLACE CAP 100 MG PO SCH (21:00)
--- NOTE | 2017-07-28 21:49 | PCM.PROG ---
Progress Note - Progress Note for Day of Date: 07/27/17 - Subjective Subjective: IS BEING TREATED FOR A SICKLE CELL CRISIS. TODAY, SHE IS ALERT AND ORIENTED, LYING IN BED ON MORNING ROUNDS. SHE CONTINUES WITH COMPLAINTS OF GENERALIZED PAIN. SHE DENIES MUCH IMPROVEMENT SINCE ADMISSION. HER VITALS THIS MORNING ARE 98.5-96-18-99%-128/75. ABNORMAL LAB VALUES INCLUDE THE FOLLOWING: WBC 24.4, RBC 2.79, HG B 9.3, HCT 26.3, POTASSIUM 3.4, BUN 3, CREATININE 0.53, GLUCOSE 134, TOTAL BILI 2.40, AST 64, GLOBULIN 4.8. SHE IS CURRENTLY NORMAL SALINE AT 150ML/HR. TODAY, WE WILL INCREASE DILAUDID TO 2MG IV Q2H PRN PAIN AND START TRAMADOL 100MG PO QID SCHEDULED. OTHERWISE, WE WILL CONTINUE WITH CURRENT PLAN OF CARE. WE PLAN TO FOLLOW UP WITH AM LABS AND CONTINUE TO MONTIOR PATIENT. - Past Medical Family Social History Past Med/Fam/Surg Hx: No changes since H&P Allergies: Allergies No Known Drug Allergies [NKDA] Allergy (Verified 07/26/17 04:20) - Review of Systems ROS: No change since H&P - Vital Signs and I&O's Vital Signs: Temperature 98.6 F Pulse Rate [Left Brachial] 89 Pulse Rate 92 Respiratory Rate 20 Blood Pressure [Left Arm] 132/81 Blood Pressure [Right Arm] 108/61 Blood Pressure 133/67 O2 Sat by Pulse Oximetry 100 Intake and Output: Intake & Output 07/26/17 07/27/17 07/28/17 07/29/17 11:59 11:59 11:59 11:59 Intake Total 2932 6054 650 Balance 2932 6054 650 - Physical Exam Oriented: Normal Eyes: Normal Ear: Normal Nose: Normal Throat: Normal Respiratory: Normal Cardiovascular: Normal : Normal Auscultation: Bowel Sounds: Normal Palpation: Normal Tenderness: Normal Skin: Normal Musculoskeletal: Back:Lumbar (GENERALIZED JOINT PAIN AND LUMBAR PAIN ) Psychiatric: Normal Mood Description: Calm Affect: Normal Speech Pattern: Clear - Laboratory and Diagnostics Result Diagrams: 07/28/17 04:10 07/28/17 04:10 Labs: Laboratory WBC 20.6 X10^3/uL (3.6-10.0) H 07/28/17 04:10 RBC 2.52 X10^6/uL (3.5-5.4) L 07/28/17 04:10 Hgb 8.4 g/dL (12.0-16.0) L 07/28/17 04:10 Hct 23.6 % (36.0-47.0) L 07/28/17 04:10 MCV 93.5 fL (80.0-100.0) 07/28/17 04:10 MCH 33.2 pg (27.0-34.0) 07/28/17 04:10 MCHC 35.6 g/dL (33.0-35.0) H 07/28/17 04:10 RDW 17.0 % (11.6-16.5) H 07/28/17 04:10 Plt Count 237 X10^3/uL (150.0-450.0) 07/28/17 04:10 Plt Count Comment Adequate (ADEQUATE) 07/27/17 05:15 MPV 7.1 fL (7.4-11.0) L 07/28/17 04:10 Neut % (Auto) 75.1 % (42.0-75.0) H 07/28/17 04:10 Lymph % (Auto) 8.7 % (21.0-51.0) L 07/28/17 04:10 [place] % (Auto) 14.1 % (0.0-13.0) H 07/28/17 04:10 Eos % (Auto) 1.8 % (0.9-2.9) 07/28/17 04:10 Baso % (Auto) 0.3 % (0.2-1.0) 07/28/17 04:10 Neut # (Auto) 15.5 x10^3/uL (2.2-4.8) H 07/28/17 04:10 Lymph # (Auto) 1.8 X10^3/uL (1.3-2.9) 07/28/17 04:10 [place] # (Auto) 2.9 x10^3/uL (0.3-0.8) H 07/28/17 04:10 Eos # (Auto) 0.4 x10^3/uL (0.0-0.2) H 07/28/17 04:10 Baso # (Auto) 0.1 X10^3/uL (0.0-0.1) 07/28/17 04:10 Absolute Nucleated RBC 0.2 /100WBC 07/28/17 04:10 Total Counted 100 07/27/17 05:15 Neutrophils % (Manual) 75 % (39-76) 07/27/17 05:15 Lymphocytes % (Manual) 15 % (13-43) 07/27/17 05:15 Monocytes % (Manual) 10 % (4-9) H 07/27/17 05:15 Plt Morphology Comment Normal (NORMAL) 07/27/17 05:15 RBC Morphology Abnormal (NORMAL) A 07/27/17 05:15 Hypochromasia Slight A 07/27/17 05:15 Poikilocytosis Present 07/27/17 05:15 Absolute Retic 0.1602 10^6/uL 07/28/17 04:10 Percent Retic 6.35 % (0.8-2.2) H 07/28/17 04:10 Sodium 138 mmol/L (136-145) 07/28/17 04:10 Corrected Sodium TNP 07/28/17 04:10 Potassium 3.5 mmol/L (3.5-5.1) 07/28/17 04:10 Chloride 102 mmol/L (98-107) 07/28/17 04:10 Carbon Dioxide 26.6 mmol/L (21-32) 07/28/17 04:10 BUN 4 mg/dL (7-18) L 07/28/17 04:10 Creatinine 0.47 mg/dL (0.55-1.02) L 07/28/17 04:10 Est GFR (MDRD) Af Amer > 60 (>60) 07/28/17 04:10 Est GFR (MDRD) Non-Af > 60 (>60) 07/28/17 04:10 Glucose 110 mg/dL (65-99) H 07/28/17 04:10 Calcium 8.8 mg/dL (8.5-10.1) 07/28/17 04:10 Corrected Calcium 9.4 mg/dL (8.5-10.1) 07/28/17 04:10 Magnesium 1.9 mg/dL (1.7-2.9) 07/26/17 11:09 Total Bilirubin 2.00 mg/dL (0.2-1.0) H 07/28/17 04:10 AST 30 Units/L (15-37) 07/28/17 04:10 ALT 51 Units/L (12-78) 07/28/17 04:10 Alkaline Phosphatase 107 Units/L (46-116) 07/28/17 04:10 Lactate Dehydrogenase 399 Units/L (81-234) H 07/26/17 11:09 Total Protein 8.0 g/dL (6.4-8.2) 07/28/17 04:10 Albumin 3.2 g/dL (3.4-5.0) L 07/28/17 04:10 Globulin 4.8 g/dL (2.5-4.5) H 07/28/17 04:10 Albumin/Globulin Ratio 0.7 Ratio (1.1-2.1) L 07/28/17 04:10 Specimen Type Clean catch urine 07/26/17 17:10 Urine Color Yellow (YELLOW) 07/26/17 17:10 Urine Appearance Clear (CLEAR) 07/26/17 17:10 Urine pH 7.0 (5.0 - 8.0) 07/26/17 17:10 Ur Specific [place] 1.005 (1.000-1.030) 07/26/17 17:10 Urine Protein Negative (NEGATIVE) 07/26/17 17:10 Urine Glucose (UA) Negative (NEGATIVE) 07/26/17 17:10 Urine Ketones Negative (NEGATIVE) 07/26/17 17:10 Urine Occult Blood Negative (NEGATIVE) 07/26/17 17:10 Urine Nitrite Negative (NEGATIVE) 07/26/17 17:10 Urine Bilirubin Negative (NEGATIVE) 07/26/17 17:10 Urine Urobilinogen Normal (NORMAL) 07/26/17 17:10 Ur Leukocyte Esterase Negative (NEGATIVE) 07/26/17 17:10 - Plan (1) Sickle cell crisis Status: Acute Plan: NORMAL SALINE AT 150ML/HR, DILAUDID 2MG IV Q2H PRN PAIN, TRAMADOL 100MG QID, CONTINUE TO MONITOR (2) Hypokalemia Status: Acute Plan: POTASSIUM PROTOCOL, CONTINUE TO MONITOR
--- NOTE | 2017-07-28 22:43 | PCM.PROG ---
Progress Note - Progress Note for Day of Date: 07/28/17 - Subjective Subjective: IS BEING TREATED FOR A SICKLE CELL CRISIS. TODAY, SHE IS ALERT AND ORIENTED, LYING IN BED ON MORNING ROUNDS. SHE CONTINUES WITH COMPLAINTS OF GENERALIZED PAIN. SHE DENIES MUCH IMPROVEMENT SINCE ADMISSION. HER VITALS THIS MORNING ARE 98.5-96-18-99%-128/75. ABNORMAL LAB VALUES INCLUDE THE FOLLOWING: WBC 24.4, RBC 2.79, HG B 9.3, HCT 26.3, POTASSIUM 3.4, BUN 3, CREATININE 0.53, GLUCOSE 134, TOTAL BILI 2.40, AST 64, GLOBULIN 4.8. SHE IS CURRENTLY NORMAL SALINE AT 150ML/HR. TODAY, WE WILL INCREASE DILAUDID TO 2MG IV Q2H PRN PAIN AND START TRAMADOL 100MG PO QID SCHEDULED. OTHERWISE, WE WILL CONTINUE WITH CURRENT PLAN OF CARE. WE PLAN TO FOLLOW UP WITH AM LABS AND CONTINUE TO MONTIOR PATIENT. - Past Medical Family Social History Past Med/Fam/Surg Hx: No changes since H&P Allergies: Allergies No Known Drug Allergies [NKDA] Allergy (Verified 07/26/17 04:20) - Review of Systems ROS: No change since H&P - Vital Signs and I&O's Vital Signs: Temperature 98.6 F Pulse Rate [Left Brachial] 89 Pulse Rate 92 Respiratory Rate 20 Blood Pressure [Left Arm] 132/81 Blood Pressure [Right Arm] 108/61 Blood Pressure 133/67 O2 Sat by Pulse Oximetry 100 Intake and Output: Intake & Output 07/26/17 07/27/17 07/28/17 07/29/17 11:59 11:59 11:59 11:59 Intake Total 2932 6054 650 Balance 2932 6054 650 - Physical Exam Oriented: Normal Eyes: Normal Ear: Normal Nose: Normal Throat: Normal Respiratory: Normal Cardiovascular: Normal : Normal Auscultation: Bowel Sounds: Normal Palpation: Normal Tenderness: Normal Skin: Normal Musculoskeletal: Back:Lumbar (GENERALIZED JOINT PAIN AND LUMBAR PAIN ) Psychiatric: Normal Mood Description: Calm Affect: Normal Speech Pattern: Clear - Laboratory and Diagnostics Result Diagrams: 07/28/17 04:10 07/28/17 04:10 Labs: Laboratory WBC 20.6 X10^3/uL (3.6-10.0) H 07/28/17 04:10 RBC 2.52 X10^6/uL (3.5-5.4) L 07/28/17 04:10 Hgb 8.4 g/dL (12.0-16.0) L 07/28/17 04:10 Hct 23.6 % (36.0-47.0) L 07/28/17 04:10 MCV 93.5 fL (80.0-100.0) 07/28/17 04:10 MCH 33.2 pg (27.0-34.0) 07/28/17 04:10 MCHC 35.6 g/dL (33.0-35.0) H 07/28/17 04:10 RDW 17.0 % (11.6-16.5) H 07/28/17 04:10 Plt Count 237 X10^3/uL (150.0-450.0) 07/28/17 04:10 Plt Count Comment Adequate (ADEQUATE) 07/27/17 05:15 MPV 7.1 fL (7.4-11.0) L 07/28/17 04:10 Neut % (Auto) 75.1 % (42.0-75.0) H 07/28/17 04:10 Lymph % (Auto) 8.7 % (21.0-51.0) L 07/28/17 04:10 [place] % (Auto) 14.1 % (0.0-13.0) H 07/28/17 04:10 Eos % (Auto) 1.8 % (0.9-2.9) 07/28/17 04:10 Baso % (Auto) 0.3 % (0.2-1.0) 07/28/17 04:10 Neut # (Auto) 15.5 x10^3/uL (2.2-4.8) H 07/28/17 04:10 Lymph # (Auto) 1.8 X10^3/uL (1.3-2.9) 07/28/17 04:10 [place] # (Auto) 2.9 x10^3/uL (0.3-0.8) H 07/28/17 04:10 Eos # (Auto) 0.4 x10^3/uL (0.0-0.2) H 07/28/17 04:10 Baso # (Auto) 0.1 X10^3/uL (0.0-0.1) 07/28/17 04:10 Absolute Nucleated RBC 0.2 /100WBC 07/28/17 04:10 Total Counted 100 07/27/17 05:15 Neutrophils % (Manual) 75 % (39-76) 07/27/17 05:15 Lymphocytes % (Manual) 15 % (13-43) 07/27/17 05:15 Monocytes % (Manual) 10 % (4-9) H 07/27/17 05:15 Plt Morphology Comment Normal (NORMAL) 07/27/17 05:15 RBC Morphology Abnormal (NORMAL) A 07/27/17 05:15 Hypochromasia Slight A 07/27/17 05:15 Poikilocytosis Present 07/27/17 05:15 Absolute Retic 0.1602 10^6/uL 07/28/17 04:10 Percent Retic 6.35 % (0.8-2.2) H 07/28/17 04:10 Sodium 138 mmol/L (136-145) 07/28/17 04:10 Corrected Sodium TNP 07/28/17 04:10 Potassium 3.5 mmol/L (3.5-5.1) 07/28/17 04:10 Chloride 102 mmol/L (98-107) 07/28/17 04:10 Carbon Dioxide 26.6 mmol/L (21-32) 07/28/17 04:10 BUN 4 mg/dL (7-18) L 07/28/17 04:10 Creatinine 0.47 mg/dL (0.55-1.02) L 07/28/17 04:10 Est GFR (MDRD) Af Amer > 60 (>60) 07/28/17 04:10 Est GFR (MDRD) Non-Af > 60 (>60) 07/28/17 04:10 Glucose 110 mg/dL (65-99) H 07/28/17 04:10 Calcium 8.8 mg/dL (8.5-10.1) 07/28/17 04:10 Corrected Calcium 9.4 mg/dL (8.5-10.1) 07/28/17 04:10 Magnesium 1.9 mg/dL (1.7-2.9) 07/26/17 11:09 Total Bilirubin 2.00 mg/dL (0.2-1.0) H 07/28/17 04:10 AST 30 Units/L (15-37) 07/28/17 04:10 ALT 51 Units/L (12-78) 07/28/17 04:10 Alkaline Phosphatase 107 Units/L (46-116) 07/28/17 04:10 Lactate Dehydrogenase 399 Units/L (81-234) H 07/26/17 11:09 Total Protein 8.0 g/dL (6.4-8.2) 07/28/17 04:10 Albumin 3.2 g/dL (3.4-5.0) L 07/28/17 04:10 Globulin 4.8 g/dL (2.5-4.5) H 07/28/17 04:10 Albumin/Globulin Ratio 0.7 Ratio (1.1-2.1) L 07/28/17 04:10 Specimen Type Clean catch urine 07/26/17 17:10 Urine Color Yellow (YELLOW) 07/26/17 17:10 Urine Appearance Clear (CLEAR) 07/26/17 17:10 Urine pH 7.0 (5.0 - 8.0) 07/26/17 17:10 Ur Specific [place] 1.005 (1.000-1.030) 07/26/17 17:10 Urine Protein Negative (NEGATIVE) 07/26/17 17:10 Urine Glucose (UA) Negative (NEGATIVE) 07/26/17 17:10 Urine Ketones Negative (NEGATIVE) 07/26/17 17:10 Urine Occult Blood Negative (NEGATIVE) 07/26/17 17:10 Urine Nitrite Negative (NEGATIVE) 07/26/17 17:10 Urine Bilirubin Negative (NEGATIVE) 07/26/17 17:10 Urine Urobilinogen Normal (NORMAL) 07/26/17 17:10 Ur Leukocyte Esterase Negative (NEGATIVE) 07/26/17 17:10 - Plan (1) Sickle cell crisis Status: Acute Plan: NORMAL SALINE AT 150ML/HR, MORPHINE 2MG IV Q3H PRN PAIN, TRAMADOL 100MG QID, CONTINUE TO MONITOR (2) Hypokalemia Status: Acute Plan: POTASSIUM PROTOCOL, CONTINUE TO MONITOR
[2017-07-29] MEDS: MORPHINE SULFATE INJ 2 MG INJ IVP PRN ×5 (01:08→13:16)
[2017-07-29] MEDS: NS 1000 ML 1,000 ML IV SCH (04:41)
[2017-07-29 06:21] LABS: BASOPHILS # (AUTO) 0.2 X10^3/uL (0.0-0.1); BASOPHILS % (AUTO) 0.7 % (0.2-1.0); EOSINOPHILS # (AUTO) 0.5 x10^3/uL (0.0-0.2); EOSINOPHILS % (AUTO) 2.3 % (0.9-2.9); HEMATOCRIT 23.8 % (36.0-47.0); HEMOGLOBIN 8.2 g/dL (12.0-16.0); LYMPHOCYTES # (AUTO) 2.7 X10^3/uL (1.3-2.9); LYMPHOCYTES % (AUTO) 11.8 % (21.0-51.0); MEAN CORPUSCULAR HEMOGLOBIN 32.4 pg (27.0-34.0); MEAN CORPUSCULAR HGB CONC 34.6 g/dL (33.0-35.0); MEAN CORPUSCULAR VOLUME 93.6 fL (80.0-100.0); MEAN PLATELET VOLUME 7.3 fL (7.4-11.0); MONOCYTES # (AUTO) 3.1 x10^3/uL (0.3-0.8); MONOCYTES % (AUTO) 13.6 % (0.0-13.0); NEUTROPHILS # (AUTO) 16.5 x10^3/uL (2.2-4.8); NEUTROPHILS % (AUTO) 71.6 % (42.0-75.0); PLATELET COUNT 237 X10^3/uL (150.0-450.0); RED BLOOD COUNT 2.54 X10^6/uL (3.5-5.4); RED CELL DISTRIBUTION WIDTH 16.3 % (11.6-16.5)
[2017-07-29 06:48] LABS: PLATELET MORPHOLOGY COMMENT NORMAL (NORMAL)
[2017-07-29 06:49] LABS: HYPOCHROMASIA 1+
[2017-07-29 06:58] LABS: ALANINE AMINOTRANSFERASE 36 Units/L (12-78); ALBUMIN 3.2 g/dL (3.4-5.0); ALKALINE PHOSPHATASE 99 Units/L (46-116); AMYLASE 25 Units/L (25-115); ASPARTATE AMINO TRANSFERASE 19 Units/L (15-37); BLOOD UREA NITROGEN 4 mg/dL (7-18); CALCIUM 8.5 mg/dL (8.5-10.1); CARBON DIOXIDE 25.3 mmol/L (21-32); CHLORIDE 100 mmol/L (98-107); COR CA(FOR HYPOALB) 9.1 mg/dL (8.5-10.1); COR NA(FOR HYPERGLY) 139 mmol/L (136-145); CREATININE 0.52 mg/dL (0.55-1.02); LIPASE 46 Units/L (73-393); SODIUM 138 mmol/L (136-145); TOTAL PROTEIN 8.5 g/dL (6.4-8.2); eGFR BLACK RACES > 60 (>60); eGFR NON BLACK RACES > 60 (>60)
--- NOTE | 2017-07-29 07:01 | RAD ---
HISTORY: Shortness of breath, leukocytosis Study: Chest AP portable Comparison: 07/02/2017 Findings: The heart is within normal limits in size. The keisha are normal. The lungs are well inflated and free of acute infiltrates. No pleural effusions are identified. The bony thorax is unremarkable. IMPRESSION: No significant abnormality identified Reported By:
[2017-07-29] MEDS: ULTRAM PO SCH ×2 (09:38→13:04)
[2017-07-29] MEDS: MILK OF MAGNESIA PO SCH ×2 (09:38→13:33)
[2017-07-29] MEDS ORDERED: K-LYTE EFFERVESCENT PO SCH (10:00)
[2017-07-29] MEDS ORDERED: K-DUR TAB 20 MEQ PO ONE (10:08)
[2017-07-29 12:57] VITALS: BP 125/81
--- NOTE | 2017-07-29 13:03 | VAS ---
History: Left leg pain Study: Doppler ultrasound of the deep veins of the left lower extremity Comparison: None Findings: The deep veins from the common femoral vein to the tibial veins are well imaged and show co mpression and good color Doppler blood flow and augmentation. Impression: Negative, no evidence for deep venous thrombosis Reported By:
--- NOTE | 2017-07-29 13:08 | RAD ---
Exam: Left tibia and fibula History: Left leg pain Comparison: None Findings: AP and lateral views of the left tibia and fibula demonstrate no evidence of acute bony abn ormality. Impression: No acute bony abnormality is identified in the left tibia or fibula. Reported By:
== END 2017-07-29 13:30 | disposition home or self-care (01) | DRG 812 ==
LOC: ER 04:16 → INTOOBSV 11:36 → MED/SURG 11:36 → OBSVTOIN 11:36 → MERGE 07-27 08:00 → OBSVTOIN 07-27 08:00
PROVIDERS: ADMIT Internal Medicine; ATTEND Internal Medicine
DX: D57.00 Hb-SS disease with crisis, unspecified (principal); E87.6 Hypokalemia; M54.5 Low back pain; F32.89 Other specified depressive episodes; F41.8 Other specified anxiety disorders; D64.89 Other specified anemias; S80.12XA Contusion of left lower leg, initial encounter; X58.XXXA Exposure to other specified factors, initial encounter; Y92.89 Other specified places as the place of occurrence of the external cause
CPT/HCPCS: 36415; 71045; 73590; 80048; 80053; 81003; 82150; 83615; 83690; 83735; 84132; 85025; 85045; 93971; 94760; 96365; 96367; 96374; 96375; 99283; 99284; A4222; G0378; J1170; J1200; J2175; J2270; J2300; J3480

== ENCOUNTER 2017-10-29 17:06 | Inpatient (IN) ==
[2017-10-29 18:19] VITALS: BMI 24.6
[2017-10-29] MEDS ORDERED: NORCO 5/325 MG TAB PO PRN (18:43)
[2017-10-29] MEDS ORDERED: TYLENOL 325 MG TAB PO PRN (18:43)
[2017-10-29] MEDS ORDERED: ZOFRAN INJ 4 MG VIAL IVP PRN (18:43)
[2017-10-29] MEDS ORDERED: ZOFRAN TAB 4 MG SL PRN (18:43)
[2017-10-29] MEDS ORDERED: VISTARIL PO PRN (18:43)
--- NOTE | 2017-10-29 19:09 | RAD ---
HISTORY: Cough, sickle cell Study: Single view chest Comparison: 07/29/2017 Findings: Lung volumes are reduced with hazy bibasilar opacities that may represent infiltrate or atelectasis. No effusion or pneumothorax identified. Heart size is within normal limits. Sclerotic changes of the humeral heads may represent osteonecrosis related to sickle cell disease. IMPRESSION: 1. Low lung volumes with hazy bibasilar infiltrates, pneumonia not excluded. Reported By:
[2017-10-29 19:19] LABS: BASOPHILS # (AUTO) 0.1 X10^3/uL (0.0-0.1); BASOPHILS % (AUTO) 0.4 % (0.2-1.0); EOSINOPHILS # (AUTO) 0.1 x10^3/uL (0.0-0.2); EOSINOPHILS % (AUTO) 0.4 % (0.9-2.9); HEMATOCRIT 27.7 % (36.0-47.0); HEMOGLOBIN 9.5 g/dL (12.0-16.0); LYMPHOCYTES # (AUTO) 3.1 X10^3/uL (1.3-2.9); LYMPHOCYTES % (AUTO) 11.5 % (21.0-51.0); MEAN CORPUSCULAR HEMOGLOBIN 31.9 pg (27.0-34.0); MEAN CORPUSCULAR HGB CONC 34.2 g/dL (33.0-35.0); MEAN CORPUSCULAR VOLUME 93.3 fL (80.0-100.0); MEAN PLATELET VOLUME 7.2 fL (7.4-11.0); MONOCYTES # (AUTO) 4.2 x10^3/uL (0.3-0.8); MONOCYTES % (AUTO) 15.4 % (0.0-13.0); NEUTROPHILS # (AUTO) 19.6 x10^3/uL (2.2-4.8); NEUTROPHILS % (AUTO) 72.3 % (42.0-75.0); PLATELET COUNT 262 X10^3/uL (150.0-450.0); RED BLOOD COUNT 2.97 X10^6/uL (3.5-5.4); RED CELL DISTRIBUTION WIDTH 15.8 % (11.6-16.5); WHITE BLOOD COUNT 27.1 X10^3/uL (3.6-10.0)
[2017-10-29 19:28] LABS: ALANINE AMINOTRANSFERASE 24 Units/L (12-78); ALBUMIN 3.7 g/dL (3.4-5.0); ALKALINE PHOSPHATASE 118 Units/L (46-116); ASPARTATE AMINO TRANSFERASE 23 Units/L (15-37); BLOOD UREA NITROGEN 7 mg/dL (7-18); CALCIUM 9.4 mg/dL (8.5-10.1); CARBON DIOXIDE 29.7 mmol/L (21-32); CHLORIDE 97 mmol/L (98-107); CREATININE 0.56 mg/dL (0.55-1.02); SODIUM 133 mmol/L (136-145); TOTAL PROTEIN 9.2 g/dL (6.4-8.2); eGFR NON BLACK RACES > 60 (>60)
[2017-10-29] MEDS: NS 1000 ML 1,000 ML IV SCH (19:30)
[2017-10-29 19:36] LABS: METAMYELOCYTES % 2
[2017-10-29 19:38] LABS: PLATELET MORPHOLOGY COMMENT NORMAL (NORMAL)
[2017-10-29 19:39] LABS: POIKILOCYTOSIS SLIGHT
[2017-10-29 19:40] LABS: ANISOCYTOSIS SLIGHT; SICKLE CELLS SLIGHT; TARGET CELLS SLIGHT
[2017-10-29] MEDS ORDERED: MAGNESIUM SULFATE 1 GRAM/100 mL PREMIX 1 GM/100 ML BAG IV PRN (19:48)
[2017-10-29] MEDS ORDERED: POTASSIUM CHLORIDE LIQ 20 MEQ UDC PO PRN (19:48)
[2017-10-29] MEDS ORDERED: POTASSIUM CHL 60 MEQ/NS 0.45% 500 ML IV PRN (19:48)
[2017-10-29] MEDS ORDERED: POTASSIUM CHL 40 MEQ/NS 0.45% 500 ML IV PRN (19:48)
[2017-10-29] MEDS ORDERED: K-RIDER 10 MEQ/NS 100 ML 10 MEQ/100 ML BAG IV PRN (19:48)
[2017-10-29] MEDS ORDERED: K-LYTE EFFERVESCENT PO PRN (19:48)
[2017-10-29] MEDS: MORPHINE SULFATE INJ 2 MG INJ IVP PRN (20:07)
--- NOTE | 2017-10-29 21:54 | DR.H&P ---
H&P - History & Physical for Day of: H&P Date: 10/29/17 - Chief Complaint Chief Complaint: severe pain to back and arms. sickle cell crisis - History of Present Illness History of Present Illness: THE PATIENT IS A 22YO BF ADMITTED WITH SICKLE CELL CRISIS. HAS BEEN HAVING INCREASING, UNCONTROLLED PAIN TO HER BACK AND ARMS. STATES MEDS NOT HELPING. HAS HISTORY OF SICKLE CELL DISEASE. - Past Medical History Past Medical History: Depression, Anemia, Asthma Additional Medical History: Sickle cell disease - Past Surgical History Surgical History: , Cholecystectomy, Other Additional Surgical History: D&C - Family History Family Medical History: Diabetes Mellitus, Cancer - Social History Does patient currently use any type of tobacco product: No Have you used tobacco products in the last 12 months: No Type of Tobacco Use: Cigarettes Does any household member use tobacco: No Alcohol Use: None Drug Use: Prescription Drugs - Medications Home Medications: No Known Drug Allergies Allergy (Verified 10/23/16 16:37) - Review of Systems Constitutional: Weakness, Malaise Eyes: No Symptoms Reported ENT: No Symptoms Reported Respiratory: No Symptoms Reported Cardiovascular: No Symptoms Reported Gastrointestinal: No Symptoms Reported Genitourinary: No Symptoms Reported Musculoskeletal: Arm Pain, Back Pain Skin: No Symptoms Reported Neurological: No Symptoms Reported - Physical Exam Vital Signs: Blood Pressure [Left Arm] 125/81 Blood Pressure [Right Arm] 108/61 Blood Pressure [Right Arm] 107/51 Blood Pressure [Left Arm] 113/59 Blood Pressure 125/81 Oriented: Normal Eyes: Normal Ear: Normal Nose: Normal Throat: Normal Respiratory: Clear Throughout Cardiovascular: Normal : Normal Auscultation: Bowel Sounds: Normal Palpation: Normal Tenderness: Normal Skin: Normal Musculoskeletal: Arm, Back:Lumbar, Tender Psychiatric: Normal Mood Description: Calm Affect: Normal Speech Pattern: Clear - Assessment/Plan (1) Leukocytosis Status: Acute Plan: MONITOR LABS, BLOOD CULTURES, LEVAQUIN (2) Sickle cell crisis Status: Acute Plan: IV HYDRATION. MONITOR RETIC, CMP (3) Joint pain Status: Acute Plan: IV MORPHINE, NORCO (4) Hypokalemia Status: Acute Plan: SUPPLEMENT NEEDED (5) Low back pain Qualifiers: Chronicity: acute Status: Acute Plan: IV MORPHINE, NORCO (6) Sickle cell anemia Qualifiers: Status: Chronic - Allergies Allergies/Adverse Reactions: Allergies Allergy/AdvReac Type Severity Reaction Status Date / Time No Known Drug Allergies Allergy Verified 10/23/16 16:37
[2017-10-29 22:03] LABS: RETICULOCYTE % 10.87 % (0.8-2.2)
[2017-10-29] MEDS: LEVAQUIN PREMIX IV 500 MG 500 MG/100 ML BAG IV SCH (22:43)
[2017-10-29] MEDS ORDERED: SALINE 3% 15 ML NEB TX NEB ONE (22:49)
[2017-10-29] MEDS ORDERED: SALINE 3% 15 ML NEB TX ONE (22:55)
[2017-10-30] MEDS: MORPHINE SULFATE INJ 2 MG INJ IVP PRN ×6 (00:14→21:55)
[2017-10-30] MEDS: NS 1000 ML 1,000 ML IV SCH ×4 (04:34→21:55)
[2017-10-30 07:36] LABS: BASOPHILS % (AUTO) 0.1 % (0.2-1.0); EOSINOPHILS # (AUTO) 0.1 x10^3/uL (0.0-0.2); EOSINOPHILS % (AUTO) 0.3 % (0.9-2.9); HEMOGLOBIN 8.3 g/dL (12.0-16.0); LYMPHOCYTES # (AUTO) 1.7 X10^3/uL (1.3-2.9); LYMPHOCYTES % (AUTO) 6.5 % (21.0-51.0); MEAN CORPUSCULAR HEMOGLOBIN 32.5 pg (27.0-34.0); MEAN CORPUSCULAR HGB CONC 34.7 g/dL (33.0-35.0); MEAN CORPUSCULAR VOLUME 93.5 fL (80.0-100.0); MEAN PLATELET VOLUME 7.3 fL (7.4-11.0); MONOCYTES % (AUTO) 15.6 % (0.0-13.0); NEUTROPHILS # (AUTO) 19.9 x10^3/uL (2.2-4.8); NEUTROPHILS % (AUTO) 77.5 % (42.0-75.0); PLATELET COUNT 221 X10^3/uL (150.0-450.0); RED BLOOD COUNT 2.56 X10^6/uL (3.5-5.4); RED CELL DISTRIBUTION WIDTH 15.3 % (11.6-16.5); WHITE BLOOD COUNT 25.7 X10^3/uL (3.6-10.0)
[2017-10-30 07:48] LABS: ALANINE AMINOTRANSFERASE 19 Units/L (12-78); ALBUMIN 3.1 g/dL (3.4-5.0); ALKALINE PHOSPHATASE 100 Units/L (46-116); ASPARTATE AMINO TRANSFERASE 17 Units/L (15-37); BLOOD UREA NITROGEN 4 mg/dL (7-18); CALCIUM 8.9 mg/dL (8.5-10.1); CARBON DIOXIDE 27.8 mmol/L (21-32); CHLORIDE 100 mmol/L (98-107); COR CA(FOR HYPOALB) 9.6 mg/dL (8.5-10.1); COR NA(FOR HYPERGLY) 135 mmol/L (136-145); CREATININE 0.56 mg/dL (0.55-1.02); SODIUM 134 mmol/L (136-145); TOTAL PROTEIN 8.1 g/dL (6.4-8.2); eGFR NON BLACK RACES > 60 (>60)
[2017-10-30 07:49] LABS: ANISOCYTOSIS SLIGHT; PLATELET MORPHOLOGY COMMENT NORMAL (NORMAL); POIKILOCYTOSIS SLIGHT
[2017-10-30] MEDS: LEVAQUIN PREMIX IV 500 MG 500 MG/100 ML BAG IV SCH (08:21)
[2017-10-30] MEDS: DUONEB 0.5 MG/3 MG NEB SCH ×4 (08:27→20:25)
--- NOTE | 2017-10-30 09:07 | RAD ---
HISTORY: Pneumonia. Patient with history of sickle cell. Study: Portable chest. Comparison: Chest x-ray dated October 29, 2017. Findings: The trachea is midline. The cardiac silhouette is unremarkable. Low lung volumes. Bibasilar atelecta sis versus early infiltrates. No obvious focal consolidation, pleural effusion, or pneumothorax. The bony thorax appears unchanged. IMPRESSION: No significant change in lung aeration. Reported By:
[2017-10-30 11:42] LABS: BILIRUBIN,URINE NEGATIVE (NEGATIVE); BLOOD/HEMOGLOBIN,URINE 2+ (NEGATIVE); GLUCOSE, URINE NEGATIVE (NEGATIVE); KETONES,URINE NEGATIVE (NEGATIVE); LEUKOCYTE ESTERASE ,URINE 2+ (NEGATIVE); NITRITES,URINE NEGATIVE (NEGATIVE); PROTEIN,URINE 1+ (NEGATIVE); UROBILINOGEN,URINE 2+ (NORMAL)
[2017-10-30 11:46] LABS: AMORPHOUS SEDIMENT,UR 1+ /HPF (NEGATIVE); APPEARANCE,URINE SLIGHTLY HAZY (CLEAR); BACTERIA,URINE TRACE /HPF (NEGATIVE); COLOR,URINE YELLOW (YELLOW); RBC,URINE 0-2 /HPF (NONE SEEN); SQUAMOUS EPITHELIAL CELL,UR MODERATE /HPF (NEGATIVE)
[2017-10-30] MEDS: PULMICORT NEB TX 0.5 MG NEB SCH ×2 (12:11→20:25)
--- NOTE | 2017-10-30 12:54 | PCM.PROG ---
Progress Note - Progress Note for Day of Date of Exam: 10/30/17 - Subjective Subjective: 22 [address] DIRECT ADMIT FROM DR JESS ERIC OFFICE WITH CO SICKLE CELL CRISIS AND CXR REVEALED POSSIBLE PNEUMONIA. PT CONTINUES TO CO PAIN ALL OVER THIS AM. PT IS RECEIVING IV AND PO NARCOTIC PAIN CONTROL, IV HYDRATION, SUPPLEMENTAL O2. PT IS REFUSING REPEAT CXR AND USE OF O2 THIS AM. PT ENCOURAGED TO USE SUPPLEMENTAL O2 AND COOPERATE WITH PLAN OF CARE. SPUTUM AND BC PENDING. D /C NORCO AND CHANGED TO PERCOCET 10 FOR PAIN, WILL CONTINUE MORPHINE, IV ATBX AND GENTLE HYDRATION. ANEMIA PANEL ORDERED AND REPEAT AM LABS. - Past Medical Family Social History Past Med/Fam/Surg Hx: No changes since H&P Allergies: Allergies No Known Drug Allergies Allergy (Verified 10/23/16 16:37) - Review of Systems ROS: No change since H&P - Vital Signs and I&O's Vital Signs: Temperature 98.7 F Pulse Rate [Left Brachial] 101 Pulse Rate 105 Respiratory Rate 20 Blood Pressure [Left Arm] 115/69 Blood Pressure [Right Arm] 108/61 Blood Pressure [Right Arm] 107/51 Blood Pressure [Left Arm] 113/59 Blood Pressure 125/81 O2 Sat by Pulse Oximetry 97 Intake and Output: Intake & Output 10/28/17 10/29/17 10/30/17 10/31/17 11:59 11:59 11:59 11:59 Intake Total 360 / 360 Balance 360 / 360 - Physical Exam Oriented: Normal Eyes: Normal Ear: Normal Nose: Normal Throat: Normal Respiratory: Diminished Cardiovascular: Normal : Normal Auscultation: Bowel Sounds: Normal Tenderness: Normal Skin: Normal Musculoskeletal: Arm, Back:Lumbar, Tender Psychiatric: Depression Mood Description: Depressed (AVOID EYE CONTACT, POOR VERBAL REPSONSES TO NURSING STAFF) Affect: Normal Speech Pattern: Clear, Appropriate - Laboratory and Diagnostics Result Diagrams: 10/30/17 07:27 10/30/17 07:27 Labs: 10/29/17 23:42 Sputum - Expectorated Sputum - Final Laboratory WBC 25.7 X10^3/uL (3.6-10.0) H 10/30/17 07:27 RBC 2.56 X10^6/uL (3.5-5.4) L 10/30/17 07:27 Hgb 8.3 g/dL (12.0-16.0) L 10/30/17 07: Hct 24.0 % (36.0-47.0) L 10/30/17 07: MCV 93.5 fL (80.0-100.0) 10/30/17 07: MCH 32.5 pg (27.0-34.0) 10/30/17 07: MCHC 34.7 g/dL (33.0-35.0) 10/30/17 07: RDW 15.3 % (11.6-16.5) 10/30/17 07: Plt Count 221 X10^3/uL (150.0-450.0) 10/30/17 07: Plt Count Comment Adequate (ADEQUATE) 10/30/17 07: MPV 7.3 fL (7.4-11.0) L 10/30/17 07: Neut % (Auto) 77.5 % (42.0-75.0) H 10/30/17 07: Lymph % (Auto) 6.5 % (21.0-51.0) L 10/30/17 07: [place] % (Auto) 15.6 % (0.0-13.0) H 10/30/17 07: Eos % (Auto) 0.3 % (0.9-2.9) L 10/30/17 07: Baso % (Auto) 0.1 % (0.2-1.0) L 10/30/17 07:27 Neut # (Auto) 19.9 x10^3/uL (2.2-4.8) H 10/30/17 07:27 Lymph # (Auto) 1.7 X10^3/uL (1.3-2.9) 10/30/17 07:27 [place] # (Auto) 4.0 x10^3/uL (0.3-0.8) H 10/30/17 07:27 Eos # (Auto) 0.1 x10^3/uL (0.0-0.2) 10/30/17 07:27 Baso # (Auto) 0.0 X10^3/uL (0.0-0.1) 10/30/17 07: Absolute Nucleated RBC 0.8 /100WBC 10/30/17 07:27 Total Counted 100 10/30/17 07:27 Neutrophils % (Manual) 68 % (39-76) 10/30/17 07:27 Lymphocytes % (Manual) 15 % (13-43) 10/30/17 07:27 Monocytes % (Manual) 17 % (4-9) H 10/30/17 07:27 Metamyelocytes % 2 10/29/17 19:08 Nucleated RBCs 2 10/29/17 19:08 Plt Morphology Comment Normal (NORMAL) 10/30/17 07:27 RBC Morphology Abnormal (NORMAL) A 10/30/17 07:27 Poikilocytosis Slight A 10/30/17 07:27 Anisocytosis Slight A 10/30/17 07:27 Sickle Cells Slight A 10/29/17 19:08 Target Cells Slight A 10/29/17 19:08 Absolute Retic 0.3235 10^6/uL 10/29/17 19:08 Percent Retic 10.87 % (0.8-2.2) H 10/29/17 19:08 Sodium 134 mmol/L (136-145) L 10/30/17 07:27 Corrected Sodium 135 mmol/L (136-145) L 10/30/17 07:27 Potassium 3.6 mmol/L (3.5-5.1) 10/30/17 07:27 Chloride 100 mmol/L (98-107) 10/30/17 07:27 Carbon Dioxide 27.8 mmol/L (21-32) 10/30/17 07:27 BUN 4 mg/dL (7-18) L 10/30/17 07:27 Creatinine 0.56 mg/dL (0.55-1.02) 10/30/17 07:27 Est GFR (MDRD) Af Amer > 60 (>60) 10/30/17 07:27 Est GFR (MDRD) Non-Af > 60 (>60) 10/30/17 07:27 Glucose 129 mg/dL (65-99) H 10/30/17 07:27 Calcium 8.9 mg/dL (8.5-10.1) 10/30/17 07:27 Corrected Calcium 9.6 mg/dL (8.5-10.1) 10/30/17 07:27 Magnesium 2.2 mg/dL (1.7-2.9) 10/29/17 19:08 Iron 28 ug/dL (50-175) L 10/30/17 07:27 Transferrin 144 mg/dL (202-364) L 10/30/17 07:27 Ferritin 859 ng/mL (8-252) H 10/30/17 07:27 Total Bilirubin 1.20 mg/dL (0.2-1.0) H 10/30/17 07:27 AST 17 Units/L (15-37) 10/30/17 07:27 ALT 19 Units/L (12-78) 10/30/17 07:27 Alkaline Phosphatase 100 Units/L (46-116) 10/30/17 07:27 Total Protein 8.1 g/dL (6.4-8.2) 10/30/17 07:27 Albumin 3.1 g/dL (3.4-5.0) L 10/30/17 07:27 Globulin 5.0 g/dL (2.5-4.5) H 10/30/17 07:27 Albumin/Globulin Ratio 0.6 Ratio (1.1-2.1) L 10/30/17 07:27 Vitamin B12 328 pg/mL (193-986) 10/30/17 07:27 Folate 10.0 ng/mL (>8.6) 10/30/17 07:27 Specimen Type Clean catch urine 10/30/17 11:30 Urine Color Yellow (YELLOW) 10/30/17 11:30 Urine Appearance Slightly hazy (CLEAR) 10/30/17 11:30 Urine pH 6.0 (5.0 - 8.0) 10/30/17 11:30 Ur Specific [place] 1.010 (1.000-1.030) 10/30/17 11:30 Urine Protein 1+ (NEGATIVE) 10/30/17 11:30 Urine Glucose (UA) Negative (NEGATIVE) 10/30/17 11:30 Urine Ketones Negative (NEGATIVE) 10/30/17 11:30 Urine Occult Blood 2+ (NEGATIVE) 10/30/17 11:30 Urine Nitrite Negative (NEGATIVE) 10/30/17 11:30 Urine Bilirubin Negative (NEGATIVE) 10/30/17 11:30 Urine Urobilinogen 2+ (NORMAL) 10/30/17 11:30 Ur Leukocyte Esterase 2+ (NEGATIVE) 10/30/17 11:30 Urine RBC 0-2 /HPF (NONE SEEN) 10/30/17 11:30 Urine WBC 0-2 /HPF (NONE SEEN) 10/30/17 11:30 Ur Squamous Epith Cells Moderate /HPF (NEGATIVE) 10/30/17 11:30 Amorphous Sediment 1+ /HPF (NEGATIVE) 10/30/17 11:30 Urine Bacteria Trace /HPF (NEGATIVE) 10/30/17 11:30 Ur Culture Indicated? No/not indicated 10/30/17 11:30 - Plan (1) Sickle cell crisis Status: Acute Plan: IV HYDRATION. MONITOR RETIC, CMP (2) Pneumonia involving right lung Status: Acute Qualifiers: Pneumonia type: due to unspecified organism Lung location: lower lobe of lung Qualified Code(s): J18.1 - Lobar pneumonia, unspecified organism Plan: BLOOD CULTURES, IV ATBX. HYDRATION, RESP CARE. SPUTUM CULTURE PENDING, PULMONARY TOILETING, SUPPLEMENTAL O2 (3) Leukocytosis Status: Acute Plan: MONITOR LABS, BLOOD CULTURES, LEV[place]QUIN (4) Anemia Status: Acute (5) Hypokalemia Status: Acute Plan: SUPPLEMENT NEEDED
[2017-10-30] MEDS: FOLIC ACID TAB 1 MG PO SCH (13:24)
[2017-10-30] MEDS: PERCOCET TAB 5/325 MG PO PRN ×2 (15:51→23:10)
[2017-10-30] MEDS ORDERED: TORADOL 15 MG VIAL IVP PRN (18:51)
[2017-10-30] MEDS: COLACE CAP 100 MG PO SCH (21:56)
[2017-10-31] MEDS: MORPHINE SULFATE INJ 2 MG INJ IVP PRN ×4 (03:22→20:08)
[2017-10-31] MEDS: NS 1000 ML 1,000 ML IV SCH ×4 (03:25→20:11)
[2017-10-31] MEDS: PERCOCET TAB 5/325 MG PO PRN ×5 (05:30→22:33)
[2017-10-31 06:13] LABS: BASOPHILS # (AUTO) 0.1 X10^3/uL (0.0-0.1); BASOPHILS % (AUTO) 0.2 % (0.2-1.0); EOSINOPHILS # (AUTO) 0.1 x10^3/uL (0.0-0.2); EOSINOPHILS % (AUTO) 0.5 % (0.9-2.9); HEMATOCRIT 20.1 % (36.0-47.0); HEMOGLOBIN 7.1 g/dL (12.0-16.0); LYMPHOCYTES # (AUTO) 3.9 X10^3/uL (1.3-2.9); MEAN CORPUSCULAR HEMOGLOBIN 32.5 pg (27.0-34.0); MEAN CORPUSCULAR HGB CONC 35.2 g/dL (33.0-35.0); MEAN CORPUSCULAR VOLUME 92.2 fL (80.0-100.0); MEAN PLATELET VOLUME 7.4 fL (7.4-11.0); MONOCYTES # (AUTO) 3.6 x10^3/uL (0.3-0.8); MONOCYTES % (AUTO) 14.7 % (0.0-13.0); NEUTROPHILS # (AUTO) 16.8 x10^3/uL (2.2-4.8); NEUTROPHILS % (AUTO) 68.6 % (42.0-75.0); PLATELET COUNT 212 X10^3/uL (150.0-450.0); RED BLOOD COUNT 2.18 X10^6/uL (3.5-5.4); RED CELL DISTRIBUTION WIDTH 15.3 % (11.6-16.5); WHITE BLOOD COUNT 24.5 X10^3/uL (3.6-10.0)
[2017-10-31 06:30] LABS: ALANINE AMINOTRANSFERASE 17 Units/L (12-78); ALBUMIN 2.9 g/dL (3.4-5.0); ALKALINE PHOSPHATASE 81 Units/L (46-116); ASPARTATE AMINO TRANSFERASE 16 Units/L (15-37); BLOOD UREA NITROGEN 4 mg/dL (7-18); CALCIUM 8.9 mg/dL (8.5-10.1); CARBON DIOXIDE 26.3 mmol/L (21-32); CHLORIDE 103 mmol/L (98-107); COR CA(FOR HYPOALB) 9.8 mg/dL (8.5-10.1); CREATININE 0.46 mg/dL (0.55-1.02); SODIUM 138 mmol/L (136-145); TOTAL PROTEIN 7.7 g/dL (6.4-8.2); eGFR NON BLACK RACES > 60 (>60)
[2017-10-31 06:46] LABS: BAND NEUTROPHILS % 5 % (0-10)
[2017-10-31 06:53] LABS: ANISOCYTOSIS 1+; HYPOCHROMASIA 1+; PLATELET MORPHOLOGY COMMENT NORMAL (NORMAL); POIKILOCYTOSIS SLIGHT
[2017-10-31 06:54] LABS: SICKLE CELLS NOTED; TARGET CELLS FEW
[2017-10-31 06:55] LABS: SMUDGE CELLS RARE
--- NOTE | 2017-10-31 07:07 | RAD ---
HISTORY: Follow-up pneumonia Study: Chest AP portable Comparison: 10/30/2017 Findings: The patient is rotated to the right. The heart is enlarged. No congestive heart failure is noted. The lungs remain hypo inflated. Subsegmental atelectasis is present in the right lung base. The right up per lung field and left lung are clear. No definite pleural effusions are identified. IMPRESSION: No significant change from the prior examination Reported By:
[2017-10-31] MEDS: DUONEB 0.5 MG/3 MG NEB SCH ×4 (08:46→21:39)
[2017-10-31] MEDS: PULMICORT NEB TX 0.5 MG NEB SCH ×2 (08:46→21:39)
[2017-10-31] MEDS: FOLIC ACID TAB 1 MG PO SCH (09:37)
[2017-10-31] MEDS: LEVAQUIN PREMIX IV 500 MG 500 MG/100 ML BAG IV SCH (09:37)
[2017-10-31 14:52] LABS: BASOPHILS # (AUTO) 0.2 X10^3/uL (0.0-0.1); BASOPHILS % (AUTO) 0.9 % (0.2-1.0); EOSINOPHILS # (AUTO) 0.2 x10^3/uL (0.0-0.2); EOSINOPHILS % (AUTO) 0.6 % (0.9-2.9); LYMPHOCYTES # (AUTO) 2.8 X10^3/uL (1.3-2.9); LYMPHOCYTES % (AUTO) 11.8 % (21.0-51.0); MEAN CORPUSCULAR HEMOGLOBIN 31.8 pg (27.0-34.0); MEAN CORPUSCULAR HGB CONC 34.6 g/dL (33.0-35.0); MEAN CORPUSCULAR VOLUME 91.8 fL (80.0-100.0); MEAN PLATELET VOLUME 7.5 fL (7.4-11.0); MONOCYTES # (AUTO) 3.2 x10^3/uL (0.3-0.8); MONOCYTES % (AUTO) 13.3 % (0.0-13.0); NEUTROPHILS # (AUTO) 17.4 x10^3/uL (2.2-4.8); NEUTROPHILS % (AUTO) 73.4 % (42.0-75.0); PLATELET COUNT 190 X10^3/uL (150.0-450.0); RED BLOOD COUNT 2.11 X10^6/uL (3.5-5.4); RED CELL DISTRIBUTION WIDTH 15.7 % (11.6-16.5); WHITE BLOOD COUNT 23.8 X10^3/uL (3.6-10.0)
[2017-10-31 15:01] LABS: HEMOGLOBIN 6.7 g/dL (12.0-16.0)
[2017-10-31 15:03] LABS: HEMATOCRIT 19.4 % (36.0-47.0)
[2017-10-31 15:21] LABS: BAND NEUTROPHILS % 2 % (0-10)
[2017-10-31 15:23] LABS: ANISOCYTOSIS SLIGHT; HYPOCHROMASIA 1+; PLATELET MORPHOLOGY COMMENT NORMAL (NORMAL); POIKILOCYTOSIS SLIGHT
[2017-10-31 15:24] LABS: SICKLE CELLS NOTED; TARGET CELLS NOTED
[2017-10-31 15:25] LABS: SMUDGE CELLS SLIGHT
[2017-10-31] MEDS: COLACE CAP 100 MG PO SCH (20:10)
[2017-11-01] MEDS: MORPHINE SULFATE INJ 2 MG INJ IVP PRN ×4 (00:15→13:31)
[2017-11-01] MEDS: NS 1000 ML 1,000 ML IV SCH ×2 (02:37→16:08)
[2017-11-01] MEDS: PERCOCET TAB 5/325 MG PO PRN ×4 (02:37→14:34)
[2017-11-01 06:09] LABS: ALANINE AMINOTRANSFERASE 15 Units/L (12-78); ALBUMIN 2.8 g/dL (3.4-5.0); ALKALINE PHOSPHATASE 86 Units/L (46-116); ASPARTATE AMINO TRANSFERASE 17 Units/L (15-37); BLOOD UREA NITROGEN 4 mg/dL (7-18); CARBON DIOXIDE 26.2 mmol/L (21-32); CHLORIDE 103 mmol/L (98-107); COR NA(FOR HYPERGLY) 138 mmol/L (136-145); CREATININE 0.54 mg/dL (0.55-1.02); SODIUM 138 mmol/L (136-145); TOTAL PROTEIN 7.6 g/dL (6.4-8.2); eGFR NON BLACK RACES > 60 (>60)
[2017-11-01 06:17] LABS: BASOPHILS # (AUTO) 0.1 X10^3/uL (0.0-0.1); BASOPHILS % (AUTO) 0.4 % (0.2-1.0); EOSINOPHILS # (AUTO) 0.3 x10^3/uL (0.0-0.2); LYMPHOCYTES # (AUTO) 3.8 X10^3/uL (1.3-2.9); LYMPHOCYTES % (AUTO) 13.6 % (21.0-51.0); MEAN CORPUSCULAR HEMOGLOBIN 31.7 pg (27.0-34.0); MEAN CORPUSCULAR HGB CONC 34.4 g/dL (33.0-35.0); MEAN CORPUSCULAR VOLUME 92.3 fL (80.0-100.0); MEAN PLATELET VOLUME 7.7 fL (7.4-11.0); MONOCYTES # (AUTO) 3.6 x10^3/uL (0.3-0.8); PLATELET COUNT 247 X10^3/uL (150.0-450.0); RED BLOOD COUNT 2.02 X10^6/uL (3.5-5.4); RED CELL DISTRIBUTION WIDTH 16.4 % (11.6-16.5); WHITE BLOOD COUNT 27.8 X10^3/uL (3.6-10.0)
[2017-11-01 06:21] LABS: HEMOGLOBIN 6.4 g/dL (12.0-16.0)
[2017-11-01 06:22] LABS: HEMATOCRIT 18.7 % (36.0-47.0)
[2017-11-01 06:29] LABS: BAND NEUTROPHILS % 7 % (0-10)
[2017-11-01 06:30] LABS: HYPOCHROMASIA 1+; PLATELET MORPHOLOGY COMMENT NORMAL (NORMAL)
[2017-11-01 06:31] LABS: POIKILOCYTOSIS SLIGHT
[2017-11-01 06:32] LABS: ANISOCYTOSIS SLIGHT; SICKLE CELLS NOTED; TARGET CELLS FEW
[2017-11-01] MEDS: DUONEB 0.5 MG/3 MG NEB SCH ×3 (08:48→16:43)
[2017-11-01] MEDS: PULMICORT NEB TX 0.5 MG NEB SCH (08:48)
[2017-11-01] MEDS: FOLIC ACID TAB 1 MG PO SCH (09:20)
[2017-11-01] MEDS: LEVAQUIN PREMIX IV 500 MG 500 MG/100 ML BAG IV SCH (09:20)
[2017-11-01 16:08] VITALS: BP 110/56
== END 2017-11-01 17:09 | disposition left against medical advice (07) | DRG 193 ==
LOC: MED/SURG
PROVIDERS: ADMIT Internal Medicine; ATTEND Internal Medicine
DX: R50.81 Fever presenting with conditions classified elsewhere; F32.89 Other specified depressive episodes; D72.828 Other elevated white blood cell count; M54.5 Low back pain; M25.50 Pain in unspecified joint; D57.819 Other sickle-cell disorders with crisis, unspecified; J18.8 Other pneumonia, unspecified organism; E87.6 Hypokalemia; J45.998 Other asthma
CPT/HCPCS: 36415; 71010; 71045; 80053; 81001; 82607; 82728; 82746; 83540; 83735; 84466; 85025; 85045; 86850; 86880; 86885; 86900; 86901; 86902; 86922; 87040; 87070; 87205; 94640; 94760; A4216; A4222; Q0177; G0378; J1956; J2270; J3480; J7030; J7620; J7626; S0181

== ENCOUNTER 2019-10-11 08:09 | Inpatient (IN) ==
[2019-10-11 08:28] VITALS: BMI 23.0
[2019-10-11] MEDS ORDERED: MORPHINE SULFATE INJ 4 MG IVP ONE (09:11)
[2019-10-11] MEDS ORDERED: ZOFRAN INJ 4 MG VIAL IVP ONE (09:11)
[2019-10-11] MEDS ORDERED: NS 1000 ML 1,000 ML IV ONE (09:11)
--- NOTE | 2019-10-11 09:11 | DR.SC ---
HPI Time Seen Time Seen by Provider: 10/11/19 09:02 PCP Primary Care Physician: ARABELLA Quarles Chief Complaint:: Sickle cell crisis. Patient states that she is having pain in her left arm and lower back. Onset 2 days ago. No other complaints voiced. Chief Complaint Doctors Comments: PAIN LEFT ARM AND LOWER BACK TIMES 2 DAYS. PATIENT HAVE SICKLE CELL DISEASE AND DENIES TRAUMA, FEVER, COUGH CONGESTION. PAIN IS 8/10, SHARP AND ACHING RADIATING TO THE BACK. SIMILAR PAIN PREVIOUSLY DUE TO SICKLE CELL CRISIS. PATIENT TOOK PERCOCET AT HOME BUT NO RELIEF. HAVE 2MONTHS OLD BABY AT HOME WHO GRANDMOTHER IS CARING FOR CURRENTLY. Self Treatment fo Chief Complaint: Percocet without relief Reviewed Nurses Notes Review: Yes Source History Provided: Patient Mode of Arrival Mode of Arrival: Ambulatory Timing Onset of Chief Complaint: 10/02/19 Context Onset: Spontaneous Symptoms: Pain History of: Sickle cell disease Location Location: Pain and Extremity Severity Severity: Moderate Associatied signs and symptoms Associated signs and symptoms: None and Other (LOWER BACK AND LEFT ARM PAIN.) PMH PMH Past Medical History: Yes Past Medical History: Anemia, Asthma and Depression Past Medical History Comment: Sickle Cell Past Surgical History: Yes Surgical History: Past Surgical History Comment: D&C Family History History of Family Medical Conditions: No Family Medical History: Diabetes Mellitus and Cancer Social History Alcohol Use: None Do you use any recreational Drugs:: No Lives With: Alone Lives Where: Home Infectious screening In the last 2 months have you had wt loss of >10#?: NO Have you had fever, night sweats or hemotysis?: No Have you traveled outside the country in the last 6 months?: No Isolation: Standard ROS Review of Systems Constitutional: No Symptoms Reported and See HPI; negative Weakness and Fatigue Eyes: No Symptoms Reported and See HPI; negative Blurred Vision and Diplopia ENTM: No Symptoms Reported and See HPI; negative Ear Pain, Nose Discharge, Nose Congestion and Throat Pain Respiratoy: No Symptoms Reported and See HPI; negative Moist Cough, Short of Breath and Wheezing Cardiovascular: No Symptoms Reported and See HPI; negative Chest Pain, Edema and Palpitations Gastrointestinal/Abdominal: No Symptoms Reported and See HPI; negative Abdominal Pain, Diarrhea, Nausea and Vomiting Genitourinary: No Symptoms Reported and See HPI; negative Dysuria, Frequency and Hematuria Neurological: No Symptoms Reported and See HPI; negative Headache, Weakness and Dizziness Musculoskeletal: See HPI, Back Pain and Arm (LEFT ARM.) Integumentary: No Symptoms Reported and See HPI; negative Change in Color, Rash and Juandice Hematologic/Lymphatic: See HPI and Anemia; negative Easy Bruising and Swollen Glands Endocrine: No Symptoms Reported and See HPI; negative Increased Thirst and Increased Urine Psychiatric: No Symptoms Reported and See HPI All Other Systems: Reviewed and Negative PE Vital Signs Vitals: Temperature 98.3 F Pulse Rate [Right Brachial] 89 Pulse Rate 89 Respiratory Rate 17 Blood Pressure [Right Arm] 140/78 Blood Pressure [Left Arm] 114/66 Blood Pressure 140/78 O2 Sat by Pulse Oximetry 98 General Limitations: No Limitations General Appearance: In No Apparent Distress Head Head Exam: Normal Inspection, Atraumatic and Normocephalic Eyes Eye exam: Normal Appearance, PERRL and EOMI; negative Scleral Icterus and Conjunctival Injection ENT ENT Exam: Normal Exam, Normal Oropharynx, Normal External Ear Exam and TM's Normal Bilaterally Neck Neck Exam: Normal Inspection and Trachea Midline; negative Tenderness and Lymphadenopathy Chest Chest Inspection: Normal Inspection and Symmetric Chest Wall Rise; negative Tenderness Respiratory Respiratory Exam: Normal Lung Sounds Bilat; negative Accessory Muscle Use, Chest Wall Tenderness and Respiratory Distress Respiratory Exam: Bilateral: Clear to Auscultation Cardiovascular Cardiovascular Exam: Regular Rate, Normal Rhythm and Normal Heart Sounds; negative Systolic Murmur and Diastolic Murmur Abdominal Exam Abdominal Exam: Normal Inspection, Normal Bowel Sounds and Soft; negative Tenderness Extremities Extremities Exam: Normal Inspection and Normal Capillary Refill; negative Tenderness, Edema and Calf Tenderness Back Back Exam: Paraspinal Tenderness Neurologic Neurological Exam: Alert, Oriented X3 and CN II-XII Intact; negative Motor Sensory Deficit Psychiatric Psychiatric Exam: Normal Affect and Normal Mood Skin Skin Exam: Warm, Dry, Intact and Normal Color MDM Diffenential Diagnosis Differential Diagnosis: Sickle cell disease with, Pyelonephritis (UTI) and Septic arthritis COURSE Treatment Treatment: SEE ORDERS. NS 1L IV BOLUS, MORPHIN 4MGM IV AND ZOFRAN 4MG IV 09: 20AM. PAIN STILL 10/22. DILAIDID 2MG IV 11:59AM. PATIENT STILL HAVING PAIN. Consultation Consultation Comments: DISCUSSED PATIENT WITH DR. CASON. HE WILL ADMIT PATIENT. Education/Counseling Education/Counseling: Patient Educated On: Diagnosis ROR Labs Reviewed Laboratory Results Reviewed?: Yes Result Diagrams: 10/13/19 05:24 10/13/19 09:02 Laboratory: WBC 18.7 X10^3/uL (3.6-10.0) H 10/11/19 09:27 RBC 2.82 X10^6/uL (3.5-5.4) L 10/11/19 09:27 Hgb 9.0 g/dL (12.0-16.0) L 10/11/19 09:27 Hct 25.9 % (36.0-47.0) L 10/11/19 09:27 MCV 91.7 fL (80.0-100.0) 10/11/19 09: MCH 32.1 pg (27.0-34.0) 10/11/19 09: MCHC 35.0 g/dL (33.0-35.0) 10/11/19 09: RDW 19.1 % (11.6-16.5) H 10/11/19 09:27 Plt Count 341 X10^3/uL (150.0-450.0) 10/11/19 09:27 MPV 7.7 fL (7.4-11.0) 10/11/19 09:27 Neut % (Auto) 56.2 % (42.0-75.0) 10/11/19 09: Lymph % (Auto) 28.4 % (21.0-51.0) 10/11/19 09:27 [place] % (Auto) 10.8 % (0.0-13.0) 10/11/19 09: Eos % (Auto) 3.4 % (0.9-2.9) H 10/11/19 09:27 Baso % (Auto) 1.2 % (0.2-1.0) H 10/11/19 09:27 Neut # (Auto) 10.5 x10^3/uL (2.2-4.8) H 10/11/19 09:27 Lymph # (Auto) 5.3 X10^3/uL (1.3-2.9) H 10/11/19 09:27 [place] # (Auto) 2.0 x10^3/uL (0.3-0.8) H 10/11/19 09:27 Eos # (Auto) 0.6 x10^3/uL (0.0-0.2) H 10/11/19 09:27 Baso # (Auto) 0.2 X10^3/uL (0.0-0.1) H 10/11/19 09:27 Absolute Nucleated RBC 0.1 /100WBC 10/11/19 09:27 Absolute Retic 0.3322 10^6/uL 10/11/19 09:27 Percent Retic 11.78 % (0.8-2.2) H 10/11/19 09:27 Sodium 139 mmol/L (136-145) 10/11/19 09:27 Corrected Sodium TNP 10/11/19 09:27 Potassium 3.3 mmol/L (3.5-5.1) L 10/11/19 09:27 Chloride 102 mmol/L (98-107) 10/11/19 09:27 Carbon Dioxide 30.0 mmol/L (21-32) 10/11/19 09:27 BUN 3 mg/dL (7-18) L 10/11/19 09:27 Creatinine 0.59 mg/dL (0.55-1.02) 10/11/19 09:27 Est GFR (MDRD) Af Amer > 60 (>60) 10/11/19 09:27 Est GFR (MDRD) Non-Af > 60 (>60) 10/11/19 09:27 Glucose 108 mg/dL (65-99) H 10/11/19 09:27 Calcium 8.7 mg/dL (8.5-10.1) 10/11/19 09:27 Corrected Calcium TNP 10/11/19 09:27 Magnesium 2.2 mg/dL (1.7-2.9) 10/11/19 09:27 Total Bilirubin 1.00 mg/dL (0.2-1.0) 10/11/19 09:27 AST 51 Units/L (15-37) H 10/11/19 09:27 ALT 30 Units/L (12-78) 10/11/19 09:27 Alkaline Phosphatase 67 Units/L (46-116) 10/11/19 09:27 Total Protein 8.2 g/dL (6.4-8.2) 10/11/19 09:27 Albumin 3.7 g/dL (3.4-5.0) 10/11/19 09:27 Globulin 4.5 g/dL (2.5-4.5) 10/11/19 09:27 Albumin/Globulin Ratio 0.8 Ratio (1.1-2.1) L 10/11/19 09:27 EKG [place]: Normal (REPORT DISCUSSED WITH PATIENT.) and LAD (NO ACUTE INFILTRATE.) Opioid Opioid Risk Tool Age (Tahir box if 16-45): No Total: 0 Total Score Risk Category: Low Risk Copyright: Donaldo PEDRAZA predicting aberrant behaviors Diagnosis Discharge Problem: Sickle cell crisis, Hypokalemia Instructions Instructions: Anemia Pain Medicine Instructions, [id number] Forms: Excuse From Work Precautions for COVID19 Patient Portal Social Distancing
[2019-10-11] MEDS ORDERED: ZOFRAN INJ 4 MG VIAL ONE (09:19)
[2019-10-11] MEDS ORDERED: MORPHINE SULFATE INJ 4 MG ONE (09:20)
[2019-10-11] MEDS ORDERED: NS 1000 ML 1,000 ML ONE ×2 (09:29→15:15)
[2019-10-11 09:38] LABS: BASOPHILS # (AUTO) 0.2 X10^3/uL (0.0-0.1); BASOPHILS % (AUTO) 1.2 % (0.2-1.0); EOSINOPHILS # (AUTO) 0.6 x10^3/uL (0.0-0.2); EOSINOPHILS % (AUTO) 3.4 % (0.9-2.9); HEMATOCRIT 25.9 % (36.0-47.0); LYMPHOCYTES # (AUTO) 5.3 X10^3/uL (1.3-2.9); LYMPHOCYTES % (AUTO) 28.4 % (21.0-51.0); MEAN CORPUSCULAR HEMOGLOBIN 32.1 pg (27.0-34.0); MEAN CORPUSCULAR VOLUME 91.7 fL (80.0-100.0); MEAN PLATELET VOLUME 7.7 fL (7.4-11.0); MONOCYTES % (AUTO) 10.8 % (0.0-13.0); NEUTROPHILS # (AUTO) 10.5 x10^3/uL (2.2-4.8); NEUTROPHILS % (AUTO) 56.2 % (42.0-75.0); PLATELET COUNT 341 X10^3/uL (150.0-450.0); RED BLOOD COUNT 2.82 X10^6/uL (3.5-5.4); RED CELL DISTRIBUTION WIDTH 19.1 % (11.6-16.5); RETICULOCYTE % 11.78 % (0.8-2.2); WHITE BLOOD COUNT 18.7 X10^3/uL (3.6-10.0)
--- NOTE | 2019-10-11 09:59 | RAD ---
HISTORYSickle cell crisis. Patient states that she is having pain in her left arm and lower back. Onset 2 days agoSTUDYCHEST x-ray, 1 VIEWCOMPARISONX-ray 04/12/2018FINDINGSProbable CHF. No pneumothorax, focal infiltrate, or pleural effusion is seen.IMPRESSIONProbable CHF.Electronically signed by: Jose Barba (Oct 11, 2019 09:57:32)
[2019-10-11 10:17] LABS: ALANINE AMINOTRANSFERASE 30 Units/L (12-78); ALBUMIN 3.7 g/dL (3.4-5.0); ALKALINE PHOSPHATASE 67 Units/L (46-116); ASPARTATE AMINO TRANSFERASE 51 Units/L (15-37); BLOOD UREA NITROGEN 3 mg/dL (7-18); CALCIUM 8.7 mg/dL (8.5-10.1); CHLORIDE 102 mmol/L (98-107); CREATININE 0.59 mg/dL (0.55-1.02); SODIUM 139 mmol/L (136-145); TOTAL PROTEIN 8.2 g/dL (6.4-8.2); eGFR NON BLACK RACES > 60 (>60)
[2019-10-11] MEDS ORDERED: DILAUDID INJ IVP ONE (11:54)
[2019-10-11] MEDS ORDERED: DILAUDID INJ ONE (11:58)
[2019-10-11] MEDS: NS 1000 ML 1,000 ML IV SCH ×2 (15:55→23:36)
[2019-10-11] MEDS: DILAUDID INJ IVP PRN ×2 (16:33→20:44)
[2019-10-11] MEDS: ZOFRAN INJ 4 MG VIAL IVP SCH ×2 (16:40→20:45)
[2019-10-11] MEDS ORDERED: MAGNESIUM SULFATE 1 GRAM/100 mL PREMIX 1 GM/100 ML BAG IV PRN (17:49)
[2019-10-11] MEDS ORDERED: MICRO K EXTEN CAP 10 MEQ PO PRN (17:49)
[2019-10-11] MEDS ORDERED: POTASSIUM CHL 60 MEQ/NS 0.45% 500 ML IV PRN (17:49)
[2019-10-11] MEDS ORDERED: POTASSIUM CHL 40 MEQ/NS 0.45% 500 ML IV PRN (17:49)
[2019-10-11] MEDS ORDERED: POTASSIUM CHLORIDE LIQ 20 MEQ UDC PO PRN (17:49)
[2019-10-11] MEDS ORDERED: K-RIDER 10 MEQ/NS 100 ML 10 MEQ/100 ML BAG IV PRN (17:49)
[2019-10-11] MEDS ORDERED: KLOR-CON PO PRN (17:49)
[2019-10-11] MEDS ORDERED: K-DUR TAB 20 MEQ PO ONE (18:30)
[2019-10-11] MEDS: K-DUR TAB 20 MEQ PO PRN (18:57)
[2019-10-12] MEDS: NS 1000 ML 1,000 ML IV SCH ×5 (01:19→20:13)
[2019-10-12] MEDS: K-DUR TAB 20 MEQ PO PRN ×2 (01:20→11:05)
[2019-10-12] MEDS: DILAUDID INJ IVP PRN ×5 (01:20→20:10)
[2019-10-12] MEDS: ZOFRAN INJ 4 MG VIAL IVP SCH ×3 (02:20→14:13)
[2019-10-12 06:34] LABS: BASOPHILS # (AUTO) 0.1 X10^3/uL (0.0-0.1); BASOPHILS % (AUTO) 0.3 % (0.2-1.0); EOSINOPHILS # (AUTO) 0.5 x10^3/uL (0.0-0.2); EOSINOPHILS % (AUTO) 2.9 % (0.9-2.9); HEMATOCRIT 22.9 % (36.0-47.0); HEMOGLOBIN 7.7 g/dL (12.0-16.0); LYMPHOCYTES # (AUTO) 4.9 X10^3/uL (1.3-2.9); LYMPHOCYTES % (AUTO) 30.1 % (21.0-51.0); MEAN CORPUSCULAR HEMOGLOBIN 31.1 pg (27.0-34.0); MEAN CORPUSCULAR HGB CONC 33.7 g/dL (33.0-35.0); MEAN CORPUSCULAR VOLUME 92.2 fL (80.0-100.0); MEAN PLATELET VOLUME 7.4 fL (7.4-11.0); MONOCYTES # (AUTO) 1.9 x10^3/uL (0.3-0.8); NEUTROPHILS # (AUTO) 8.8 x10^3/uL (2.2-4.8); NEUTROPHILS % (AUTO) 54.7 % (42.0-75.0); PLATELET COUNT 281 X10^3/uL (150.0-450.0); RED BLOOD COUNT 2.48 X10^6/uL (3.5-5.4); RED CELL DISTRIBUTION WIDTH 18.2 % (11.6-16.5); WHITE BLOOD COUNT 16.1 X10^3/uL (3.6-10.0)
[2019-10-12 06:55] LABS: ALANINE AMINOTRANSFERASE 23 Units/L (12-78); ALBUMIN 3.4 g/dL (3.4-5.0); ALKALINE PHOSPHATASE 60 Units/L (46-116); ASPARTATE AMINO TRANSFERASE 24 Units/L (15-37); BLOOD UREA NITROGEN 3 mg/dL (7-18); CARBON DIOXIDE 26.5 mmol/L (21-32); CHLORIDE 106 mmol/L (98-107); CREATININE 0.46 mg/dL (0.55-1.02); SODIUM 140 mmol/L (136-145); TOTAL PROTEIN 7.4 g/dL (6.4-8.2); eGFR NON BLACK RACES > 60 (>60)
[2019-10-12 07:13] LABS: HYPOCHROMASIA SLIGHT; PLATELET MORPHOLOGY COMMENT NORMAL (NORMAL)
[2019-10-12 16:04] LABS: BILIRUBIN,URINE NEGATIVE (NEGATIVE); BLOOD/HEMOGLOBIN,URINE 4+ (NEGATIVE); GLUCOSE, URINE NEGATIVE (NEGATIVE); KETONES,URINE NEGATIVE (NEGATIVE); LEUKOCYTE ESTERASE ,URINE NEGATIVE (NEGATIVE); NITRITES,URINE NEGATIVE (NEGATIVE); PROTEIN,URINE 4+ (NEGATIVE); UROBILINOGEN,URINE NORMAL (NORMAL)
[2019-10-12 16:20] LABS: AMORPHOUS SEDIMENT,UR 2+ /HPF (NEGATIVE); APPEARANCE,URINE SLIGHTLY HAZY (CLEAR); BACTERIA,URINE TRACE /HPF (NEGATIVE); COLOR,URINE BLOODY (YELLOW); RBC,URINE TNTC /HPF (0-3); SQUAMOUS EPITHELIAL CELL,UR RARE /HPF (NEGATIVE)
[2019-10-12] MEDS ORDERED: BENADRYL INJ 50 MG VIAL ONE (16:31)
[2019-10-12] MEDS: BENADRYL INJ 50 MG VIAL IV PRN (16:32)
--- NOTE | 2019-10-12 18:19 | DR.H&P ---
H&P - History & Physical for Day of: H&P Date: 10/11/19 - Chief Complaint Chief Complaint: "SICKLE CELL CRISIS" BACK PAIN, SHOULDER PAIN - Past Medical History Past Medical History: Depression, Anemia, Asthma Additional Medical History: Sickle cell disease - Past Surgical History Surgical History: , Cholecystectomy Additional Surgical History: D&C - Family History Family Medical History: Diabetes Mellitus, Cancer - Social History Does patient currently use any type of tobacco product: No Have you used tobacco products in the last 12 months: No Type of Tobacco Use: None Does any household member use tobacco: No Alcohol Use: None Drug Use: None - Medications Home Medications: No Known Drug Allergies Allergy (Verified 12/25/17 18:12) - Review of Systems Constitutional: Weakness, Malaise ENT: No Symptoms Reported Cardiovascular: Chest Pain Gastrointestinal: Nausea Musculoskeletal: Shoulder Pain, Back Pain Skin: No Symptoms Reported Neurological: Weakness - Physical Exam Vital Signs: Temperature 98.9 F Pulse Rate [Left Brachial] 66 Pulse Rate [Right Brachial] 58 Pulse Rate 89 Respiratory Rate 18 Blood Pressure [Right Arm] 140/78 Blood Pressure [Left Arm] 138/71 Blood Pressure 140/78 O2 Sat by Pulse Oximetry 98 Oriented: Normal Eyes: Normal Ear: Normal Nose: Normal Throat: Normal Respiratory: RLL Diminished, LLL Diminished Cardiovascular: Normal : Normal Auscultation: Bowel Sounds: Normal Palpation: Normal Tenderness: Normal Skin: Normal Musculoskeletal: Left, Shoulder, Back:Thoracic, Back:Lumbar Psychiatric: Anxiety Affect: Anxious Speech Pattern: Clear, Appropriate - Assessment/Plan (1) Sickle cell crisis Status: Acute Plan: ADMIT, IV HYDRATION. PAIN CONTROL, SUPPLEMENTAL O2 PRN. AM LABS, CXR ON ADMISSION. VERIFY HOME MEDICATION (2) Shoulder pain Status: Acute (3) Sickle cell anemia Qualifiers: Status: Chronic - Allergies Allergies/Adverse Reactions: Allergies Allergy/AdvReac Type Severity Reaction Status Date / Time No Known Drug Allergies Allergy Verified 12/25/17 18:12
[2019-10-13] MEDS: DILAUDID INJ IVP PRN ×6 (00:24→21:22)
[2019-10-13] MEDS: NS 1000 ML 1,000 ML IV SCH ×3 (00:24→15:24)
[2019-10-13] MEDS: BENADRYL INJ 50 MG VIAL IV PRN ×3 (00:24→17:21)
[2019-10-13] MEDS: ZOFRAN INJ 4 MG VIAL IVP SCH ×6 (00:24→21:06)
[2019-10-13] MEDS ORDERED: PROTONIX INJ 40 MG VIAL ONE (04:10)
[2019-10-13 06:15] LABS: BASOPHILS # (AUTO) 0.1 X10^3/uL (0.0-0.1); BASOPHILS % (AUTO) 0.4 % (0.2-1.0); EOSINOPHILS # (AUTO) 0.5 x10^3/uL (0.0-0.2); HEMATOCRIT 20.8 % (36.0-47.0); HEMOGLOBIN 7.1 g/dL (12.0-16.0); LYMPHOCYTES # (AUTO) 4.1 X10^3/uL (1.3-2.9); LYMPHOCYTES % (AUTO) 24.4 % (21.0-51.0); MEAN CORPUSCULAR HEMOGLOBIN 31.5 pg (27.0-34.0); MEAN CORPUSCULAR HGB CONC 34.2 g/dL (33.0-35.0); MEAN CORPUSCULAR VOLUME 92.2 fL (80.0-100.0); MEAN PLATELET VOLUME 7.5 fL (7.4-11.0); MONOCYTES # (AUTO) 2.3 x10^3/uL (0.3-0.8); NEUTROPHILS # (AUTO) 9.7 x10^3/uL (2.2-4.8); NEUTROPHILS % (AUTO) 58.2 % (42.0-75.0); PLATELET COUNT 243 X10^3/uL (150.0-450.0); RED BLOOD COUNT 2.25 X10^6/uL (3.5-5.4); RED CELL DISTRIBUTION WIDTH 18.6 % (11.6-16.5); WHITE BLOOD COUNT 16.7 X10^3/uL (3.6-10.0)
[2019-10-13 06:21] LABS: ALANINE AMINOTRANSFERASE 22 Units/L (12-78); ALBUMIN 3.2 g/dL (3.4-5.0); ALKALINE PHOSPHATASE 58 Units/L (46-116); ASPARTATE AMINO TRANSFERASE 19 Units/L (15-37); BLOOD UREA NITROGEN 3 mg/dL (7-18); CALCIUM 8.4 mg/dL (8.5-10.1); CARBON DIOXIDE 27.9 mmol/L (21-32); CHLORIDE 106 mmol/L (98-107); COR NA(FOR HYPERGLY) 141 mmol/L (136-145); CREATININE 0.49 mg/dL (0.55-1.02); SODIUM 141 mmol/L (136-145); TOTAL PROTEIN 7.1 g/dL (6.4-8.2); eGFR NON BLACK RACES > 60 (>60)
[2019-10-13] MEDS: K-DUR TAB 20 MEQ PO PRN ×2 (06:47→10:14)
[2019-10-13 06:57] LABS: ANISOCYTOSIS 1+; HYPOCHROMASIA 1+; PLATELET MORPHOLOGY COMMENT NORMAL (NORMAL)
--- NOTE | 2019-10-13 10:35 | RAD ---
HISTORYSICKLE CELL CRISIS, SOBSTUDYCHEST x-ray, 1 VIEWCOMPARISONX-ray 10/11/2019FINDINGSPatient is rotated to the left. Heart is likely normal in size. Increasing opacity is suspected in the right infrahilar region that is probable pneumonia. Coarsened lung markings are seen bilaterally that are likely from sickle cell disease. No pneumothorax or pleural effusion is seen.IMPRESSIONIncreasing right infrahilar density is concerning for possible pneumonia. Continued x-ray follow up to document resolution is recommendedElectronically signed by: Jose Barba (Oct 13, 2019 10:33:43)
[2019-10-13] MEDS: NS + KCL 20 MEQ/L 1,000 ML IV SCH (15:56)
[2019-10-13] MEDS ORDERED: MAG-OX TAB ONE (16:01)
[2019-10-13] MEDS: MAG-OX TAB PO SCH (16:15)
[2019-10-13] MEDS: ROCEPHIN VIAL 1 GRAM 1 G in NS 100 ML IV + SPIKE MINIBAG* 100 ML IV SCH (19:25)
[2019-10-13] MEDS: ROBITUSSIN DM PO SCH ×2 (19:25→21:23)
[2019-10-14] MEDS: DUONEB 0.5 MG/3 MG (3 mL) NEB SCH ×2 (00:33→06:05)
[2019-10-14] MEDS: BENADRYL INJ 50 MG VIAL IV PRN ×2 (01:19→09:29)
[2019-10-14] MEDS: DILAUDID INJ IVP PRN ×2 (01:19→05:23)
[2019-10-14] MEDS: ZOFRAN INJ 4 MG VIAL IVP SCH (03:32)
[2019-10-14] MEDS: NS + KCL 20 MEQ/L 1,000 ML IV SCH ×2 (06:17→09:28)
[2019-10-14] MEDS: MAG-OX TAB PO SCH (06:17)
[2019-10-14 06:21] LABS: BASOPHILS # (AUTO) 0.1 X10^3/uL (0.0-0.1); BASOPHILS % (AUTO) 0.7 % (0.2-1.0); EOSINOPHILS # (AUTO) 0.6 x10^3/uL (0.0-0.2); EOSINOPHILS % (AUTO) 3.3 % (0.9-2.9); HEMATOCRIT 22.2 % (36.0-47.0); HEMOGLOBIN 7.5 g/dL (12.0-16.0); LYMPHOCYTES # (AUTO) 4.6 X10^3/uL (1.3-2.9); LYMPHOCYTES % (AUTO) 26.2 % (21.0-51.0); MEAN CORPUSCULAR HEMOGLOBIN 31.3 pg (27.0-34.0); MEAN CORPUSCULAR HGB CONC 33.7 g/dL (33.0-35.0); MEAN CORPUSCULAR VOLUME 92.7 fL (80.0-100.0); MEAN PLATELET VOLUME 7.3 fL (7.4-11.0); MONOCYTES # (AUTO) 2.2 x10^3/uL (0.3-0.8); MONOCYTES % (AUTO) 12.7 % (0.0-13.0); NEUTROPHILS # (AUTO) 9.9 x10^3/uL (2.2-4.8); NEUTROPHILS % (AUTO) 57.1 % (42.0-75.0); PLATELET COUNT 253 X10^3/uL (150.0-450.0); RED BLOOD COUNT 2.39 X10^6/uL (3.5-5.4); WHITE BLOOD COUNT 17.4 X10^3/uL (3.6-10.0)
[2019-10-14 06:59] LABS: HYPOCHROMASIA SLIGHT; PLATELET MORPHOLOGY COMMENT NORMAL (NORMAL)
[2019-10-14 07:00] LABS: ALANINE AMINOTRANSFERASE 18 Units/L (12-78); ALBUMIN 3.5 g/dL (3.4-5.0); ALKALINE PHOSPHATASE 63 Units/L (46-116); ANISOCYTOSIS SLIGHT; ASPARTATE AMINO TRANSFERASE 18 Units/L (15-37); BLOOD UREA NITROGEN 4 mg/dL (7-18); CALCIUM 8.7 mg/dL (8.5-10.1); CARBON DIOXIDE 30.7 mmol/L (21-32); CHLORIDE 104 mmol/L (98-107); MAGNESIUM 1.8 mg/dL (1.7-2.9); MICROCYTOSIS SLIGHT; SODIUM 140 mmol/L (136-145); TOTAL PROTEIN 7.8 g/dL (6.4-8.2); eGFR NON BLACK RACES > 60 (>60)
[2019-10-14] MEDS: ROBITUSSIN DM PO SCH (08:23)
[2019-10-14] MEDS: ROCEPHIN VIAL 1 GRAM 1 G in NS 100 ML IV + SPIKE MINIBAG* 100 ML IV SCH (08:24)
[2019-10-14] MEDS ORDERED: PERCOCET TAB 5/325 MG PO PRN (08:45)
[2019-10-14] MEDS ORDERED: DILAUDID INJ IVP PRN (08:45)
[2019-10-14 11:13] VITALS: BP 146/63
== END 2019-10-14 11:19 | disposition left against medical advice (07) | DRG 812 ==
LOC: ER 08:15 → MED/SURG 14:54
PROVIDERS: ADMIT Internal Medicine; ATTEND Internal Medicine
DX: M25.512 Pain in left shoulder; D64.89 Other specified anemias; D57.00 Hb-SS disease with crisis, unspecified; E87.6 Hypokalemia; Z53.29 Procedure and treatment not carried out because of patient's decision for other reasons; M54.89 Other dorsalgia; R07.89 Other chest pain
CPT/HCPCS: 36415; 71010; 71045; 80053; 81001; 82607; 82728; 82746; 83540; 83735; 84132; 84466; 85025; 85045; 94640; 94760; 96365; 96374; 96375; 99284; A4222; J0696; J1170; J1200; J2270; J2405; J7030; J7050; J7620

== ENCOUNTER 2020-01-10 21:31 | Inpatient (IN) ==
[2020-01-10 21:44] VITALS: BMI 23.9
[2020-01-10] MEDS ORDERED: BENADRYL INJ 50 MG VIAL IVP ONE (23:24)
[2020-01-10] MEDS ORDERED: DILAUDID INJ IVP ONE (23:27)
[2020-01-10] MEDS ORDERED: DILAUDID INJ ONE (23:28)
[2020-01-10] MEDS ORDERED: NS 1000 ML 1,000 ML ONE (23:28)
[2020-01-10] MEDS ORDERED: BENADRYL INJ 50 MG VIAL ONE (23:28)
--- NOTE | 2020-01-10 23:28 | DR.SC ---
HPI Time Seen Time Seen by Provider: 01/10/20 23:16 PCP Primary Care Physician: COLTEN Complaint Chief Complaint:: PATIENT AMBULATORY INTO TRIAGE WITH C/O PAIN TO CHEST, BACK AND DOWN LEFT LEG. PATIENT RATES PAIN 10/10. PATIENT STATES SHE KNOWS IT IS HER SICKLE CELL. Chief Complaint Doctors Comments: PATIENT IS 24YR OLD PATIENT WITH SICKLE CELL DISEASE IN ER WITH SICKLE CELL CRISIS TIMES 2 DAYS. SHE IS HAVING CHEST PAIN, BACK PAIN AND ESTREMITY PAINS. RUNNING LOW GRADE FEVER. PAIN IS SHARP AND ACHING, 10/10. SLIGHT COUGH AND CONGESTION PRESENT CURRENTLY. NO DYSURIA. NAUSEA OR VOMITING. MEDICATIONS AT HOME DID NOT HELP PAIN. Self Treatment fo Chief Complaint: PERCOCET PRESCRIBED Reviewed Nurses Notes Review: Yes Source History Provided: Patient Mode of Arrival Mode of Arrival: Ambulatory Timing Onset of Chief Complaint: 01/08/20 Context Onset: Spontaneous Symptoms: Pain History of: Sickle cell disease and Similar prior crisis Location Location: Pain, Chest, Back and Extremity Severity Severity: Severe Associatied signs and symptoms Associated signs and symptoms: Fever and Nausea PMH PMH Past Medical History: Yes Past Medical History: Anemia, Asthma and Depression Past Medical History Comment: SICKLE CELL Past Surgical History: Yes Surgical History: and Cholecystectomy Family History History of Family Medical Conditions: No Family Medical History: Diabetes Mellitus and Cancer Social History Alcohol Use: None Do you use any recreational Drugs:: No Lives With: Family Lives Where: Home Travel Risk Coronavirus risk:travel/contact w/high risk person: No Has patient experienced Coronavirus symptoms: No Infectious screening Have you traveled outside the country in the last 6 months?: No Isolation: Standard ROS Review of Systems Constitutional: See HPI, Fever, Weakness and Fatigue Eyes: No Symptoms Reported and See HPI; negative Blurred Vision and Diplopia ENTM: See HPI and Nose Congestion; negative Ear Pain, Nose Discharge and Throat Pain Respiratoy: See HPI and Non-Productive Cough; negative Short of Breath and Wheezing Cardiovascular: See HPI and Chest Pain; negative Palpitations Gastrointestinal/Abdominal: See HPI and Nausea; negative Abdominal Pain, Diarrhea and Vomiting Genitourinary: No Symptoms Reported and See HPI; negative Dysuria, Frequency and Hematuria Neurological: See HPI, Headache and Weakness; negative Dizziness Musculoskeletal: See HPI, Back Pain, Muscle Pain, Arm, Forearm, Hip and Leg Integumentary: No Symptoms Reported and See HPI; negative Change in Color, Rash and Juandice Hematologic/Lymphatic: No Symptoms Reported and See HPI; negative Easy Bruising and Swollen Glands Endocrine: No Symptoms Reported and See HPI; negative Increased Thirst and Increased Urine Psychiatric: No Symptoms Reported and See HPI All Other Systems: Reviewed and Negative PE Vital Signs Vitals: Temperature 99.7 F Pulse Rate [Left Brachial] 71 Pulse Rate 73 Respiratory Rate 16 Blood Pressure [Left Arm] 118/69 Blood Pressure [Right Arm] 146/63 Blood Pressure 127/67 O2 Sat by Pulse Oximetry 100 General Limitations: No Limitations General Appearance: Alert and In No Apparent Distress Head Head Exam: Normal Inspection and Atraumatic Eyes Eye exam: PERRL and Scleral Icterus; negative Conjunctival Injection ENT ENT Exam: Normal Exam, Normal Oropharynx, Normal External Ear Exam and TM's Normal Bilaterally Neck Neck Exam: Normal Inspection and Trachea Midline; negative Tenderness and Lymphadenopathy Chest Chest Inspection: Normal Inspection and Symmetric Chest Wall Rise; negative Tenderness Respiratory Respiratory Exam: Normal Lung Sounds Bilat; negative Accessory Muscle Use, Chest Wall Tenderness and Respiratory Distress Respiratory Exam: Bilateral: Clear to Auscultation Cardiovascular Cardiovascular Exam: Regular Rate, Normal Rhythm and Normal Heart Sounds; negative Systolic Murmur and Diastolic Murmur Abdominal Exam Abdominal Exam: Normal Inspection, Normal Bowel Sounds and Soft; negative Tenderness Extremities Extremities Exam: Normal Inspection and Normal Capillary Refill; negative Tenderness, Edema and Calf Tenderness Back Back Exam: Normal Inspection; negative (R) CVA Tenderness and (L) CVA Tenderness Neurologic Neurological Exam: Alert, Oriented X3 and CN II-XII Intact Psychiatric Psychiatric Exam: Normal Affect and Normal Mood Skin Skin Exam: Warm, Dry, Intact and Normal Color MDM Additional Information obtained Additional Information Obtained: Old records Diffenential Diagnosis Differential Diagnosis: Sickle cell disease with and Pneumonia (BRONCHITIS, MYALGIA, ARTHRALGIA.) COURSE Treatment Treatment: AEE, OTDERS. MS 125CC/HR, DILAUDID 2MG IV, BENADYL 25MG IV IN ER. ZOSYN, 3.375MG IVPB AND ZITHROMAX 500MG IVPB IN ER. POTASSIUM 20MEQ PO IN ER. DISCUSSED PATIENTS CONDITION,, LABS AND XRAY REPORT. HE WILL ADMIT PATIENT. Reevaluation 1st: Improved (PAIN IMPROVING.) Consultation Consultation Comments: DISCUSSED PATIENT WITH DR. CASON, HE WILL ADMIT PATIENT. Education/Counseling Education/Counseling: Patient Educated On: Diagnosis ROR Labs Reviewed Laboratory Results Reviewed?: Yes Result Diagrams: 01/15/20 11:25 01/15/20 04:06 Laboratory: 01/11/20 02:14 Blood Blood Culture - Final 01/11/20 02:09 Blood Blood Culture - Final WBC 17.6 X10^3/uL (3.6-10.0) H 01/11/20 06:37 RBC 2.24 X10^6/uL (3.5-5.4) L 01/11/20 06:37 Hgb 7.4 g/dL (12.0-16.0) L 01/11/20 06:37 Hct 21.5 % (36.0-47.0) L 01/11/20 06:37 MCV 96.1 fL (80.0-100.0) 01/11/20 06:37 MCH 33.1 pg (27.0-34.0) 01/11/20 06:37 MCHC 34.4 g/dL (33.0-35.0) 01/11/20 06:37 RDW 14.6 % (11.6-16.5) 01/11/20 06:37 Plt Count 212 X10^3/uL (150.0-450.0) 01/11/20 06:37 Plt Count Comment Adequate (ADEQUATE) 01/11/20 06:37 MPV 7.1 fL (7.4-11.0) L 01/11/20 06:37 Neut % (Auto) 54.6 % (42.0-75.0) 01/11/20 06:37 Lymph % (Auto) 31.0 % (21.0-51.0) 01/11/20 06:37 [place] % (Auto) 12.4 % (0.0-13.0) 01/11/20 06:37 Eos % (Auto) 1.6 % (0.9-2.9) 01/11/20 06:37 Baso % (Auto) 0.4 % (0.2-1.0) 01/11/20 06:37 Neut # (Auto) 9.6 x10^3/uL (2.2-4.8) H 01/11/20 06:37 Lymph # (Auto) 5.5 X10^3/uL (1.3-2.9) H 01/11/20 06:37 [place] # (Auto) 2.2 x10^3/uL (0.3-0.8) H 01/11/20 06:37 Eos # (Auto) 0.3 x10^3/uL (0.0-0.2) H 01/11/20 06:37 Baso # (Auto) 0.1 X10^3/uL (0.0-0.1) 01/11/20 06:37 Absolute Nucleated RBC 0.1 /100WBC 01/11/20 06:37 Plt Morphology Comment Normal (NORMAL) 01/11/20 06:37 RBC Morphology Abnormal (NORMAL) A 01/11/20 06:37 Hypochromasia Slight A 01/11/20 06:37 Percent Retic 8.60 % (0.8-2.2) H 01/10/20 23:51 Sodium 138 mmol/L (136-145) 01/11/20 06:37 Corrected Sodium TNP 01/11/20 06:37 Potassium 3.4 mmol/L (3.5-5.1) L 01/11/20 20:45 Chloride 103 mmol/L (98-107) 01/11/20 06:37 Carbon Dioxide 26.2 mmol/L (21-32) 01/11/20 06:37 BUN 5 mg/dL (7-18) L 01/11/20 06:37 Creatinine 0.54 mg/dL (0.55-1.02) L 01/11/20 06:37 Est GFR (MDRD) Af Amer > 60 (>60) 01/11/20 06:37 Est GFR (MDRD) Non-Af > 60 (>60) 01/11/20 06:37 Glucose 106 mg/dL (65-99) H 01/11/20 06:37 Lactic Acid 1.3 mmol/L (0.4-2.0) 01/11/20 02:14 Calcium 8.5 mg/dL (8.5-10.1) 01/11/20 06:37 Corrected Calcium TNP 01/11/20 06:37 Magnesium 2.1 mg/dL (1.7-2.9) 01/11/20 16:25 Iron 86 ug/dL (50-175) 01/11/20 16:25 Transferrin 154 mg/dL (202-364) L 01/11/20 16:25 Ferritin 155 ng/mL (8-252) 01/11/20 16:25 Total Bilirubin 1.30 mg/dL (0.2-1.0) H 01/11/20 06:37 AST 20 Units/L (15-37) 01/11/20 06:37 ALT 15 Units/L (12-78) 01/11/20 06:37 Alkaline Phosphatase 55 Units/L (46-116) 01/11/20 06:37 Total Protein 7.9 g/dL (6.4-8.2) 01/11/20 06:37 Albumin 3.5 g/dL (3.4-5.0) 01/11/20 06:37 Globulin 4.4 g/dL (2.5-4.5) 01/11/20 06:37 Albumin/Globulin Ratio 0.8 Ratio (1.1-2.1) L 01/11/20 06:37 Vitamin B12 257 pg/mL (193-986) 01/11/20 16:25 Folate 13.7 ng/mL (>8.6) 01/11/20 16:25 SARS-CoV-2 (PCR) Negative (NEGATIVE) 01/11/20 02:12 XRAY XRAY Interpreted by: Radiologist (REPORT NOTED AND DISCUSSED WITH PATIENT.) and Self Opioid Opioid Risk Tool Age (Tahir box if 16-45): Yes History of Preadolescent Sexual Abuse: No Total: 1 Total Score Risk Category: Low Risk Copyright: Donaldo PEDRAZA predicting aberrant behaviors Diagnosis Discharge Problem: Sickle cell crisis, Acute extremity pain, Chest wall pain Back pain Qualifiers: Back pain location: low back pain Chronicity: acute Back pain laterality: bilateral Sciatica presence: with sciatica Sciatica laterality: bilateral sciatica Qualified Code(s): M54.42 - Lumbago with sciatica, left side Pneumonia Qualifiers: Pneumonia type: due to unspecified organism Laterality: bilateral Lung location: lower lobe of lung Qualified Code(s): J18.9 - Pneumonia, unspecified organism Instructions Instructions: Shortness of Breath, Adult, Hzql-ly-Ultr Hypokalemia Hand Washing, Nsvr-gn-Hvvt Upper Respiratory Infection, Adult, Jfnh-na-Xdyc Cough, Adult, Jlcf-rg-Lehb Musculoskeletal Pain Hemolytic Anemia You've Been Prescribed an Antibiotic in the Hospital for an Infection - [facility] (07/2017) Community-Acquired Pneumonia, Adult, Yhvm-ge-Spfg Forms: Precautions for COVID19 Patient Portal Social Distancing
[2020-01-10] MEDS: NS 1000 ML 1,000 ML IV SCH (23:50)
[2020-01-11 00:02] LABS: BASOPHILS # (AUTO) 0.1 X10^3/uL (0.0-0.1); BASOPHILS % (AUTO) 0.6 % (0.2-1.0); EOSINOPHILS # (AUTO) 0.2 x10^3/uL (0.0-0.2); EOSINOPHILS % (AUTO) 1.2 % (0.9-2.9); HEMATOCRIT 26.2 % (36.0-47.0); MEAN CORPUSCULAR HEMOGLOBIN 33.3 pg (27.0-34.0); MEAN CORPUSCULAR HGB CONC 34.5 g/dL (33.0-35.0); MEAN CORPUSCULAR VOLUME 96.6 fL (80.0-100.0); MEAN PLATELET VOLUME 7.1 fL (7.4-11.0); MONOCYTES # (AUTO) 1.8 x10^3/uL (0.3-0.8); MONOCYTES % (AUTO) 11.4 % (0.0-13.0); NEUTROPHILS % (AUTO) 61.8 % (42.0-75.0); PLATELET COUNT 254 X10^3/uL (150.0-450.0); RED BLOOD COUNT 2.71 X10^6/uL (3.5-5.4); RED CELL DISTRIBUTION WIDTH 14.6 % (11.6-16.5); WHITE BLOOD COUNT 16.2 X10^3/uL (3.6-10.0)
[2020-01-11 00:04] LABS: BLOOD UREA NITROGEN 5 mg/dL (7-18); CALCIUM 8.8 mg/dL (8.5-10.1); CARBON DIOXIDE 26.9 mmol/L (21-32); CHLORIDE 102 mmol/L (98-107); COR NA(FOR HYPERGLY) 139 mmol/L (136-145); CREATININE 0.54 mg/dL (0.55-1.02); SODIUM 138 mmol/L (136-145); eGFR NON BLACK RACES > 60 (>60)
[2020-01-11 00:09] LABS: ALANINE AMINOTRANSFERASE 14 Units/L (12-78); ALBUMIN 3.9 g/dL (3.4-5.0); ALKALINE PHOSPHATASE 64 Units/L (46-116); ASPARTATE AMINO TRANSFERASE 15 Units/L (15-37); TOTAL PROTEIN 8.7 g/dL (6.4-8.2)
--- NOTE | 2020-01-11 00:20 | RAD ---
HISTORYPATIENT AMBULATORY INTO TRIAGE WITH C/O PAIN TO CHEST, BACK AND DOWN LEFT LEG. PATIENT RATES PAIN 10/10. PATIENT STATES SHE KNOWS IT IS HER SICKLE CELLSTUDYCHEST, 1 [id number]/30/2012FINDINGSThe trachea is midline. The cardiac silhouette is unremarkable. Low lung volume with patchy bibasilar atelectasis versus infiltrates.. The bony thorax is unremarkable.IMPRESSIONLow lung volume with bibasilar atelectasis versus infiltrates.Electronically signed by: Phoebe Sesay (Jan 11, 2020 00:19:32)
[2020-01-11] MEDS ORDERED: ZITHROMAX INJ 500 MG VIAL 500 MG in NS 250 ML IV 250 ML IV SCH ×2 (01:57→06:00)
[2020-01-11] MEDS ORDERED: ZOSYN VIAL 3.375 GRAMS IV ONE (02:01)
[2020-01-11] MEDS ORDERED: NS 100 ML IV + SPIKE MINIBAG* 100 ML IV ONE (02:01)
[2020-01-11] MEDS: ZOSYN VIAL 3.375 GRAMS 3.375 G in NS 100 ML IV + SPIKE MINIBAG* 100 ML IV SCH ×4 (02:18→21:24)
[2020-01-11] MEDS ORDERED: K-DUR TAB 20 MEQ PO ONE ×2 (02:39→02:40)
[2020-01-11] MEDS ORDERED: BENADRYL INJ 50 MG VIAL ONE ×2 (03:41→12:06)
[2020-01-11] MEDS ORDERED: DILAUDID INJ ONE ×3 (03:41→12:05)
[2020-01-11] MEDS: BENADRYL INJ 50 MG VIAL IV PRN ×3 (03:45→21:18)
[2020-01-11] MEDS: DILAUDID INJ IVP PRN ×5 (03:46→21:20)
[2020-01-11] MEDS ORDERED: NS 250 ML IV 250 ML IV ONE (06:33)
[2020-01-11] MEDS ORDERED: ZITHROMAX INJ 500 MG VIAL IV ONE (06:33)
[2020-01-11] MEDS: ZITHROMAX INJ 500 MG VIAL 500 MG in NS 250 ML IV 250 ML IV SCH (06:38)
[2020-01-11 07:00] LABS: BASOPHILS # (AUTO) 0.1 X10^3/uL (0.0-0.1); BASOPHILS % (AUTO) 0.4 % (0.2-1.0); EOSINOPHILS # (AUTO) 0.3 x10^3/uL (0.0-0.2); EOSINOPHILS % (AUTO) 1.6 % (0.9-2.9); HEMATOCRIT 21.5 % (36.0-47.0); HEMOGLOBIN 7.4 g/dL (12.0-16.0); LYMPHOCYTES # (AUTO) 5.5 X10^3/uL (1.3-2.9); MEAN CORPUSCULAR HEMOGLOBIN 33.1 pg (27.0-34.0); MEAN CORPUSCULAR HGB CONC 34.4 g/dL (33.0-35.0); MEAN CORPUSCULAR VOLUME 96.1 fL (80.0-100.0); MEAN PLATELET VOLUME 7.1 fL (7.4-11.0); MONOCYTES # (AUTO) 2.2 x10^3/uL (0.3-0.8); MONOCYTES % (AUTO) 12.4 % (0.0-13.0); NEUTROPHILS # (AUTO) 9.6 x10^3/uL (2.2-4.8); NEUTROPHILS % (AUTO) 54.6 % (42.0-75.0); PLATELET COUNT 212 X10^3/uL (150.0-450.0); RED BLOOD COUNT 2.24 X10^6/uL (3.5-5.4); RED CELL DISTRIBUTION WIDTH 14.6 % (11.6-16.5); WHITE BLOOD COUNT 17.6 X10^3/uL (3.6-10.0)
[2020-01-11 07:25] LABS: ALANINE AMINOTRANSFERASE 15 Units/L (12-78); ALBUMIN 3.5 g/dL (3.4-5.0); ALKALINE PHOSPHATASE 55 Units/L (46-116); ASPARTATE AMINO TRANSFERASE 20 Units/L (15-37); BLOOD UREA NITROGEN 5 mg/dL (7-18); CALCIUM 8.5 mg/dL (8.5-10.1); CARBON DIOXIDE 26.2 mmol/L (21-32); CHLORIDE 103 mmol/L (98-107); CREATININE 0.54 mg/dL (0.55-1.02); SODIUM 138 mmol/L (136-145); TOTAL PROTEIN 7.9 g/dL (6.4-8.2); eGFR NON BLACK RACES > 60 (>60)
[2020-01-11 07:30] LABS: HYPOCHROMASIA SLIGHT; PLATELET MORPHOLOGY COMMENT NORMAL (NORMAL)
[2020-01-11] MEDS ORDERED: ZOFRAN INJ 4 MG VIAL ONE (07:45)
[2020-01-11] MEDS: ZOFRAN INJ 4 MG VIAL IVP PRN (07:48)
[2020-01-11] MEDS: NS 1000 ML 1,000 ML IV SCH ×4 (07:48→23:29)
[2020-01-11] MEDS ORDERED: NS 1000 ML 1,000 ML ONE (09:03)
--- NOTE | 2020-01-11 16:04 | DR.H&P ---
H&P - History & Physical for Day of: H&P Date: 01/11/20 - Chief Complaint Chief Complaint: CHEST AND BACK PAIN, FEVER, SICKLE CELL - History of Present Illness History of Present Illness: PT CO PAIN TO CHEST, BACK AND DOWN LEFT LEG. PATIENT RATES PAIN 10/10. PATIENT STATES SHE KNOWS IT IS HER SICKLE CELL. PATIRNT IS HAVING CHEST, BACK AND EXTREMITY PAIN THAT IS SHARP AND ACHING, 10/10 SIMILAR TO PAIN SHE HAD PREVIOULY WITH SICKLE CELL CRISIS. RUNNING LOW GRADE FEVER. ER CXR REVEALED PNEUMONIA. - Past Medical History Past Medical History: Depression, Anemia, Asthma Additional Medical History: Sickle cell disease - Past Surgical History Surgical History: , Cholecystectomy Additional Surgical History: D&C - Family History Family Medical History: Diabetes Mellitus, Cancer - Social History Does patient currently use any type of tobacco product: No Have you used tobacco products in the last 12 months: No Type of Tobacco Use: None Does any household member use tobacco: No Alcohol Use: None - Medications Home Medications: No Known Drug Allergies Allergy (Verified 12/25/17 18:12) CONTINUE taking the following medications folic acid 1 mg PO BID 01/11/20 [History] hydroxyurea 500 mg PO BID 01/11/20 [History] - Review of Systems Constitutional: Fever, Chills, Weakness Eyes: No Symptoms Reported Respiratory: Cough, Shortness of Breath, Pleuritic Pain Cardiovascular: Chest Pain Genitourinary: No Symptoms Reported Musculoskeletal: Back Pain Skin: No Symptoms Reported Neurological: No Symptoms Reported - Physical Exam Vital Signs: Temperature 99.2 F Pulse Rate [Left Brachial] 69 Pulse Rate 95 Respiratory Rate 18 Blood Pressure [Left Arm] 98/56 Blood Pressure [Right Arm] 146/63 Blood Pressure 127/67 O2 Sat by Pulse Oximetry 98 Oriented: Normal Eyes: Normal Ear: Normal Nose: Normal Throat: Normal Respiratory: RML Diminished, RLL Diminished, LML Diminished, LLL Diminished Cardiovascular: Normal : Normal Auscultation: Bowel Sounds: Normal Palpation: Normal Skin: Normal Musculoskeletal: Back:Thoracic, Back:Lumbar Psychiatric: Anxiety Affect: Anxious Speech Pattern: Clear, Appropriate - Assessment/Plan (1) Pneumonia Qualifiers: Pneumonia type: due to unspecified organism Laterality: bilateral Lung location: lower lobe of lung Qualified Code(s): J18.9 - Pneumonia, unspecified organism Status: Acute Plan: ADMIT, IV HYDRATION, SUPPLEMENTAL O2. RESP THERAPY, IV ATBX. PAIN CONTROL, VERIFY HOME MEDICATION. SPUTUM CULTURE (2) Chest wall pain Status: Acute (3) Sickle cell crisis Status: Acute - Allergies Allergies/Adverse Reactions: Allergies Allergy/AdvReac Type Severity Reaction Status Date / Time No Known Drug Allergies Allergy Verified 12/25/17 18:12
[2020-01-11] MEDS ORDERED: TORADOL 15 MG VIAL IVP PRN (16:05)
[2020-01-11] MEDS: FOLIC ACID TAB 1 MG PO SCH ×2 (16:32→21:22)
[2020-01-11] MEDS: HYDREA PO SCH ×2 (16:32→21:22)
[2020-01-11] MEDS ORDERED: POTASSIUM CHL 40 MEQ/NS 0.45% 500 ML IV PRN (17:04)
[2020-01-11] MEDS ORDERED: KLOR-CON PO PRN (17:04)
[2020-01-11] MEDS ORDERED: K-RIDER 10 MEQ/NS 100 ML 10 MEQ/100 ML BAG IV PRN (17:04)
[2020-01-11] MEDS ORDERED: POTASSIUM CHLORIDE LIQ 20 MEQ UDC PO PRN (17:04)
[2020-01-11] MEDS ORDERED: POTASSIUM CHL 60 MEQ/NS 0.45% 500 ML IV PRN (17:04)
[2020-01-11] MEDS ORDERED: MICRO K EXTEN CAP 10 MEQ PO PRN (17:04)
[2020-01-11] MEDS: K-DUR TAB 20 MEQ PO PRN (18:32)
[2020-01-11] MEDS ORDERED: DUONEB 0.5 MG/3 MG (3 mL) NEB ONE (20:10)
[2020-01-11] MEDS: DUONEB 0.5 MG/3 MG (3 mL) NEB SCH (20:40)
[2020-01-12] MEDS: ZOFRAN INJ 4 MG VIAL IVP PRN ×2 (00:51→20:17)
[2020-01-12] MEDS: DILAUDID INJ IVP PRN ×5 (01:41→22:41)
[2020-01-12] MEDS: ZITHROMAX INJ 500 MG VIAL 500 MG in NS 250 ML IV 250 ML IV SCH (03:48)
[2020-01-12] MEDS: BENADRYL INJ 50 MG VIAL IV PRN ×3 (05:42→22:42)
[2020-01-12] MEDS: DUONEB 0.5 MG/3 MG (3 mL) NEB SCH ×3 (06:21→22:00)
[2020-01-12 06:40] LABS: BASOPHILS # (AUTO) 0.1 X10^3/uL (0.0-0.1); BASOPHILS % (AUTO) 0.6 % (0.2-1.0); EOSINOPHILS # (AUTO) 0.3 x10^3/uL (0.0-0.2); EOSINOPHILS % (AUTO) 1.8 % (0.9-2.9); HEMATOCRIT 21.3 % (36.0-47.0); HEMOGLOBIN 7.4 g/dL (12.0-16.0); LYMPHOCYTES # (AUTO) 3.8 X10^3/uL (1.3-2.9); LYMPHOCYTES % (AUTO) 23.3 % (21.0-51.0); MEAN CORPUSCULAR HGB CONC 34.5 g/dL (33.0-35.0); MEAN CORPUSCULAR VOLUME 95.5 fL (80.0-100.0); MEAN PLATELET VOLUME 6.9 fL (7.4-11.0); MONOCYTES # (AUTO) 2.2 x10^3/uL (0.3-0.8); MONOCYTES % (AUTO) 13.2 % (0.0-13.0); NEUTROPHILS # (AUTO) 10.1 x10^3/uL (2.2-4.8); NEUTROPHILS % (AUTO) 61.1 % (42.0-75.0); PLATELET COUNT 219 X10^3/uL (150.0-450.0); RED BLOOD COUNT 2.23 X10^6/uL (3.5-5.4); RED CELL DISTRIBUTION WIDTH 14.9 % (11.6-16.5); WHITE BLOOD COUNT 16.5 X10^3/uL (3.6-10.0)
[2020-01-12] MEDS: ZOSYN VIAL 3.375 GRAMS 3.375 G in NS 100 ML IV + SPIKE MINIBAG* 100 ML IV SCH ×3 (06:48→21:09)
[2020-01-12 06:54] LABS: ALANINE AMINOTRANSFERASE 14 Units/L (12-78); ALBUMIN 3.4 g/dL (3.4-5.0); ALKALINE PHOSPHATASE 54 Units/L (46-116); ASPARTATE AMINO TRANSFERASE 17 Units/L (15-37); BLOOD UREA NITROGEN 5 mg/dL (7-18); CALCIUM 8.7 mg/dL (8.5-10.1); CARBON DIOXIDE 26.4 mmol/L (21-32); CHLORIDE 104 mmol/L (98-107); CREATININE 0.41 mg/dL (0.55-1.02); SODIUM 138 mmol/L (136-145); TOTAL PROTEIN 7.8 g/dL (6.4-8.2); eGFR NON BLACK RACES > 60 (>60)
[2020-01-12 07:15] LABS: PLATELET MORPHOLOGY COMMENT NORMAL (NORMAL)
--- NOTE | 2020-01-12 09:43 | RAD ---
HISTORYPNEUMONIASTUDYCHEST, PA/LAT [id number]/28/2020TECHNIQUETwo-view chestFINDINGSCardiac silhouette is mildly enlarged. No ple ural effusion or pneumothorax identified identified. Mild patchy opacity in the retrocardiac lung on the lateral view.IMPRESSIONRetrocardiac patchy opacity consistent with pneumonia in the right clinica l setting.Electronically signed by: Jono Licona (Jan 12, 2020 09:43:44)
[2020-01-12] MEDS ORDERED: DILAUDID INJ IVP ONE (09:44)
[2020-01-12] MEDS: NS 1000 ML 1,000 ML IV SCH ×3 (10:55→23:52)
[2020-01-12] MEDS: FOLIC ACID TAB 1 MG PO SCH ×2 (10:55→20:15)
[2020-01-12] MEDS: K-DUR TAB 20 MEQ PO PRN (10:56)
[2020-01-12] MEDS: HYDREA PO SCH ×2 (14:51→20:14)
[2020-01-12] MEDS: PERCOCET TAB 5/325 MG PO PRN (20:15)
[2020-01-12] MEDS: ROBITUSSIN DM PO SCH ×2 (20:16→23:11)
[2020-01-12] MEDS: SOLU-Medrol 40 MG VIAL IVP SCH ×2 (20:17→23:12)
[2020-01-13] MEDS: ZITHROMAX INJ 500 MG VIAL 500 MG in NS 250 ML IV 250 ML IV SCH (02:30)
[2020-01-13] MEDS: NS 1000 ML 1,000 ML IV SCH ×4 (02:31→23:47)
[2020-01-13] MEDS: DILAUDID INJ IVP PRN ×5 (02:57→21:45)
[2020-01-13] MEDS: PERCOCET TAB 5/325 MG PO PRN ×2 (05:03→22:44)
[2020-01-13] MEDS: SOLU-Medrol 40 MG VIAL IVP SCH (05:04)
[2020-01-13] MEDS: ZOSYN VIAL 3.375 GRAMS 3.375 G in NS 100 ML IV + SPIKE MINIBAG* 100 ML IV SCH ×3 (05:59→21:48)
[2020-01-13] MEDS: DUONEB 0.5 MG/3 MG (3 mL) NEB SCH ×3 (06:00→21:40)
[2020-01-13 06:43] LABS: HEMATOCRIT 21.6 % (36.0-47.0); HEMOGLOBIN 7.4 g/dL (12.0-16.0); LYMPHOCYTES # (AUTO) 2.3 X10^3/uL (1.3-2.9); MONOCYTES # (AUTO) 1.5 x10^3/uL (0.3-0.8)
[2020-01-13 06:50] LABS: BASOPHILS # (AUTO) 0.1 X10^3/uL (0.0-0.1); BASOPHILS % (AUTO) 0.3 % (0.2-1.0); LYMPHOCYTES % (AUTO) 12.7 % (21.0-51.0); MEAN CORPUSCULAR HEMOGLOBIN 32.7 pg (27.0-34.0); MEAN CORPUSCULAR HGB CONC 34.4 g/dL (33.0-35.0); MONOCYTES % (AUTO) 8.1 % (0.0-13.0); NEUTROPHILS # (AUTO) 14.3 x10^3/uL (2.2-4.8); NEUTROPHILS % (AUTO) 78.9 % (42.0-75.0); PLATELET COUNT 235 X10^3/uL (150.0-450.0); RED BLOOD COUNT 2.27 X10^6/uL (3.5-5.4); RED CELL DISTRIBUTION WIDTH 15.1 % (11.6-16.5); WHITE BLOOD COUNT 18.1 X10^3/uL (3.6-10.0)
[2020-01-13 07:02] LABS: ALANINE AMINOTRANSFERASE 14 Units/L (12-78); ALBUMIN 3.6 g/dL (3.4-5.0); ALKALINE PHOSPHATASE 59 Units/L (46-116); ASPARTATE AMINO TRANSFERASE 22 Units/L (15-37); BLOOD UREA NITROGEN 5 mg/dL (7-18); CALCIUM 9.2 mg/dL (8.5-10.1); CARBON DIOXIDE 21.7 mmol/L (21-32); CHLORIDE 103 mmol/L (98-107); COR NA(FOR HYPERGLY) 136 mmol/L (136-145); CREATININE 0.47 mg/dL (0.55-1.02); SODIUM 135 mmol/L (136-145); TOTAL PROTEIN 8.2 g/dL (6.4-8.2); eGFR NON BLACK RACES > 60 (>60)
[2020-01-13 07:23] LABS: HYPOCHROMASIA SLIGHT; PLATELET MORPHOLOGY COMMENT NORMAL (NORMAL)
[2020-01-13] MEDS: BENADRYL INJ 50 MG VIAL IV PRN ×2 (08:05→17:19)
[2020-01-13] MEDS: FOLIC ACID TAB 1 MG PO SCH ×2 (08:12→21:55)
[2020-01-13] MEDS: ROBITUSSIN DM PO SCH ×4 (08:13→21:51)
[2020-01-13] MEDS: HYDREA PO SCH ×2 (08:40→21:55)
[2020-01-13] MEDS ORDERED: OXYCODONE ACETAMINOPHEN PO SCH (08:45)
[2020-01-13] MEDS: ZANAFLEX PO PRN ×2 (12:46→21:53)
[2020-01-13] MEDS ORDERED: PERCOCET TAB 5/325 MG ONE (19:57)
[2020-01-14] MEDS: ZITHROMAX INJ 500 MG VIAL 500 MG in NS 250 ML IV 250 ML IV SCH (01:55)
[2020-01-14] MEDS: DILAUDID INJ IVP PRN ×6 (01:57→23:30)
[2020-01-14] MEDS: BENADRYL INJ 50 MG VIAL IV PRN ×3 (01:57→19:30)
--- NOTE | 2020-01-14 05:57 | RAD ---
HISTORYPNEUMONIASTUDYCHEST, 1 [id number]/29/2020FINDINGSThe trachea is midline. The cardiac silhouette is stable. No new consolidation. Retrocardiac atelectasis/infiltrates again seen.. The bony thorax is unremarkable.IMPRESSIONNo significant interval change.Electronically signed by: Phoebe Sesay (Jan 14, 2020 05:57:18)
[2020-01-14 06:10] LABS: BASOPHILS # (AUTO) 0.1 X10^3/uL (0.0-0.1); BASOPHILS % (AUTO) 0.4 % (0.2-1.0); EOSINOPHILS # (AUTO) 0.1 x10^3/uL (0.0-0.2); EOSINOPHILS % (AUTO) 0.3 % (0.9-2.9); HEMATOCRIT 20.4 % (36.0-47.0); LYMPHOCYTES # (AUTO) 6.9 X10^3/uL (1.3-2.9); LYMPHOCYTES % (AUTO) 28.1 % (21.0-51.0); MEAN CORPUSCULAR HGB CONC 34.4 g/dL (33.0-35.0); MEAN CORPUSCULAR VOLUME 96.1 fL (80.0-100.0); MEAN PLATELET VOLUME 6.9 fL (7.4-11.0); MONOCYTES # (AUTO) 3.2 x10^3/uL (0.3-0.8); MONOCYTES % (AUTO) 13.2 % (0.0-13.0); NEUTROPHILS # (AUTO) 14.3 x10^3/uL (2.2-4.8); PLATELET COUNT 224 X10^3/uL (150.0-450.0); RED BLOOD COUNT 2.12 X10^6/uL (3.5-5.4); RED CELL DISTRIBUTION WIDTH 14.9 % (11.6-16.5); WHITE BLOOD COUNT 24.6 X10^3/uL (3.6-10.0)
[2020-01-14] MEDS: ZOSYN VIAL 3.375 GRAMS 3.375 G in NS 100 ML IV + SPIKE MINIBAG* 100 ML IV SCH ×3 (06:19→22:00)
[2020-01-14] MEDS: DUONEB 0.5 MG/3 MG (3 mL) NEB SCH ×3 (06:20→21:35)
[2020-01-14 06:30] LABS: ALANINE AMINOTRANSFERASE 20 Units/L (12-78); ALBUMIN 3.4 g/dL (3.4-5.0); ALKALINE PHOSPHATASE 55 Units/L (46-116); ASPARTATE AMINO TRANSFERASE 20 Units/L (15-37); BLOOD UREA NITROGEN 5 mg/dL (7-18); CALCIUM 8.8 mg/dL (8.5-10.1); CHLORIDE 104 mmol/L (98-107); CREATININE 0.49 mg/dL (0.55-1.02); SODIUM 139 mmol/L (136-145); TOTAL PROTEIN 7.8 g/dL (6.4-8.2); eGFR NON BLACK RACES > 60 (>60)
[2020-01-14] MEDS: NS 1000 ML 1,000 ML IV SCH ×3 (07:30→23:49)
[2020-01-14] MEDS: PERCOCET TAB 5/325 MG PO PRN ×2 (07:33→17:23)
[2020-01-14 07:59] LABS: HYPOCHROMASIA 1+; PLATELET MORPHOLOGY COMMENT NORMAL (NORMAL)
[2020-01-14] MEDS: FOLIC ACID TAB 1 MG PO SCH ×2 (08:00→22:00)
[2020-01-14] MEDS: HYDREA PO SCH ×2 (08:00→22:00)
[2020-01-14] MEDS: ROBITUSSIN DM PO SCH ×4 (10:16→20:28)
[2020-01-14] MEDS: K-DUR TAB 20 MEQ PO PRN (19:40)
[2020-01-15] MEDS: ZITHROMAX INJ 500 MG VIAL 500 MG in NS 250 ML IV 250 ML IV SCH (02:09)
[2020-01-15] MEDS: DILAUDID INJ IVP PRN ×2 (03:30→08:05)
[2020-01-15] MEDS: BENADRYL INJ 50 MG VIAL IV PRN (03:30)
[2020-01-15] MEDS: ZOSYN VIAL 3.375 GRAMS 3.375 G in NS 100 ML IV + SPIKE MINIBAG* 100 ML IV SCH (05:37)
[2020-01-15] MEDS: PERCOCET TAB 5/325 MG PO PRN (05:38)
[2020-01-15 05:39] LABS: ALANINE AMINOTRANSFERASE 29 Units/L (12-78); ALBUMIN 3.2 g/dL (3.4-5.0); ALKALINE PHOSPHATASE 55 Units/L (46-116); ASPARTATE AMINO TRANSFERASE 30 Units/L (15-37); BASOPHILS # (AUTO) 0.1 X10^3/uL (0.0-0.1); BASOPHILS % (AUTO) 0.4 % (0.2-1.0); BLOOD UREA NITROGEN 7 mg/dL (7-18); CALCIUM 8.6 mg/dL (8.5-10.1); CHLORIDE 104 mmol/L (98-107); COR CA(FOR HYPOALB) 9.2 mg/dL (8.5-10.1); CREATININE 0.47 mg/dL (0.55-1.02); EOSINOPHILS # (AUTO) 0.2 x10^3/uL (0.0-0.2); EOSINOPHILS % (AUTO) 1.1 % (0.9-2.9); LYMPHOCYTES % (AUTO) 28.2 % (21.0-51.0); MEAN CORPUSCULAR HEMOGLOBIN 33.5 pg (27.0-34.0); MEAN CORPUSCULAR HGB CONC 35.2 g/dL (33.0-35.0); MEAN PLATELET VOLUME 6.8 fL (7.4-11.0); MONOCYTES # (AUTO) 2.7 x10^3/uL (0.3-0.8); MONOCYTES % (AUTO) 15.1 % (0.0-13.0); NEUTROPHILS # (AUTO) 9.9 x10^3/uL (2.2-4.8); NEUTROPHILS % (AUTO) 55.2 % (42.0-75.0); PLATELET COUNT 202 X10^3/uL (150.0-450.0); RED BLOOD COUNT 1.92 X10^6/uL (3.5-5.4); RED CELL DISTRIBUTION WIDTH 15.2 % (11.6-16.5); SODIUM 138 mmol/L (136-145); TOTAL PROTEIN 7.5 g/dL (6.4-8.2); WHITE BLOOD COUNT 17.9 X10^3/uL (3.6-10.0); eGFR NON BLACK RACES > 60 (>60)
[2020-01-15 05:59] LABS: HEMOGLOBIN 6.4 g/dL (12.0-16.0)
[2020-01-15 06:00] LABS: HEMATOCRIT 18.2 % (36.0-47.0)
[2020-01-15] MEDS: DUONEB 0.5 MG/3 MG (3 mL) NEB SCH (06:23)
[2020-01-15] MEDS: FOLIC ACID TAB 1 MG PO SCH (09:33)
[2020-01-15] MEDS: ROBITUSSIN DM PO SCH (09:33)
[2020-01-15] MEDS: HYDREA PO SCH (09:34)
--- NOTE | 2020-01-15 11:07 | RAD ---
HISTORYSICKLE CELL, chest pain, lung infiltratesSTUDYCHEST x-ray, 1 VIEWCOMPARISONX-ray 01/14/2020FINDINGSCardiomegaly and possible CHF appear slightly improved from prior study. There are persistent vague densities in the right lung that could be atelectasis, pneumonia, or pulmonary edema. Clearing of left retrocardiac density is seen. No pneumothorax or pleural effusion is seen.IMPRESSIONCHF persists but is improved.Improving lung densities are seen. Continued x-ray follow up to document resolution of the right lung densities is recommended.Electronically signed by: Jose Barba (Jan 15, 2020 11:07:42)
[2020-01-15] MEDS: NS 1000 ML 1,000 ML IV SCH (11:25)
[2020-01-15 11:39] LABS: BASOPHILS # (AUTO) 0.1 X10^3/uL (0.0-0.1); BASOPHILS % (AUTO) 0.7 % (0.2-1.0); EOSINOPHILS # (AUTO) 0.2 x10^3/uL (0.0-0.2); EOSINOPHILS % (AUTO) 1.2 % (0.9-2.9); LYMPHOCYTES # (AUTO) 4.5 X10^3/uL (1.3-2.9); LYMPHOCYTES % (AUTO) 23.4 % (21.0-51.0); MEAN CORPUSCULAR HEMOGLOBIN 33.3 pg (27.0-34.0); MEAN CORPUSCULAR HGB CONC 35.1 g/dL (33.0-35.0); MEAN CORPUSCULAR VOLUME 94.8 fL (80.0-100.0); MONOCYTES % (AUTO) 15.6 % (0.0-13.0); NEUTROPHILS # (AUTO) 11.3 x10^3/uL (2.2-4.8); NEUTROPHILS % (AUTO) 59.1 % (42.0-75.0); PLATELET COUNT 216 X10^3/uL (150.0-450.0); RED BLOOD COUNT 1.92 X10^6/uL (3.5-5.4); RED CELL DISTRIBUTION WIDTH 15.5 % (11.6-16.5); WHITE BLOOD COUNT 19.1 X10^3/uL (3.6-10.0)
[2020-01-15 11:46] LABS: HEMOGLOBIN 6.4 g/dL (12.0-16.0)
[2020-01-15 11:47] LABS: HEMATOCRIT 18.2 % (36.0-47.0)
[2020-01-15 14:06] VITALS: BP 109/65
== END 2020-01-15 12:50 | disposition left against medical advice (07) | DRG 811 ==
LOC: ER 21:36 → OBS 21:36 → MED/SURG 01-11 12:11
PROVIDERS: ADMIT Internal Medicine; ATTEND Internal Medicine

== ENCOUNTER 2020-01-18 12:31 | Inpatient (IN) ==
--- NOTE | 2020-01-18 15:11 | RAD ---
HISTORYSICKLE CELL CRISIS.STUDYCHEST, 1 VIEWCOMPARISONOctober 2019FINDINGSThe trachea is midline. The cardiac silhouette is stable. The lungs are clear without focal infiltrate or effusion. 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
[2020-01-18 15:15] LABS: ABG BASE EXCESS 3.9 mmol/L (-2.0-2.0); ABG HCO3 27.7 mmol/L (22-26)
[2020-01-18 15:16] LABS: ABG ALLEN TEST POS
[2020-01-18] MEDS ORDERED: NS 250 ML IV 250 ML IV ONE ×2 (15:57→20:38)
[2020-01-18 15:59] LABS: ALANINE AMINOTRANSFERASE 25 Units/L (12-78); ALKALINE PHOSPHATASE 68 Units/L (46-116); ASPARTATE AMINO TRANSFERASE 21 Units/L (15-37); BASOPHILS # (AUTO) 0.1 X10^3/uL (0.0-0.1); BASOPHILS % (AUTO) 0.4 % (0.2-1.0); BLOOD UREA NITROGEN 4 mg/dL (7-18); CALCIUM 9.4 mg/dL (8.5-10.1); CARBON DIOXIDE 26.7 mmol/L (21-32); CHLORIDE 101 mmol/L (98-107); EOSINOPHILS # (AUTO) 0.2 x10^3/uL (0.0-0.2); EOSINOPHILS % (AUTO) 0.8 % (0.9-2.9); HEMATOCRIT 22.9 % (36.0-47.0); LYMPHOCYTES # (AUTO) 4.1 X10^3/uL (1.3-2.9); LYMPHOCYTES % (AUTO) 20.3 % (21.0-51.0); MEAN CORPUSCULAR HEMOGLOBIN 33.7 pg (27.0-34.0); MEAN CORPUSCULAR HGB CONC 34.9 g/dL (33.0-35.0); MEAN CORPUSCULAR VOLUME 96.6 fL (80.0-100.0); MEAN PLATELET VOLUME 6.8 fL (7.4-11.0); MONOCYTES # (AUTO) 2.4 x10^3/uL (0.3-0.8); MONOCYTES % (AUTO) 11.9 % (0.0-13.0); NEUTROPHILS # (AUTO) 13.5 x10^3/uL (2.2-4.8); NEUTROPHILS % (AUTO) 66.6 % (42.0-75.0); PLATELET COUNT 295 X10^3/uL (150.0-450.0); RED BLOOD COUNT 2.37 X10^6/uL (3.5-5.4); RED CELL DISTRIBUTION WIDTH 15.9 % (11.6-16.5); RETICULOCYTE % 18.43 % (0.8-2.2); SODIUM 136 mmol/L (136-145); TOTAL PROTEIN 9.3 g/dL (6.4-8.2); WHITE BLOOD COUNT 20.2 X10^3/uL (3.6-10.0); eGFR NON BLACK RACES > 60 (>60)
[2020-01-18] MEDS: ZITHROMAX INJ 500 MG VIAL 500 MG in D5W 250 ML IV 250 ML IV SCH (16:18)
[2020-01-18] MEDS: MORPHINE SULFATE INJ 2 MG INJ IVP PRN ×2 (16:19→20:30)
[2020-01-18 17:53] VITALS: BMI 23.2
--- NOTE | 2020-01-18 18:21 | DR.H&P ---
H&P - History & Physical for Day of: H&P Date: 01/18/20 - Chief Complaint Chief Complaint: Leg pain, lightheadedness - History of Present Illness History of Present Illness: The patient is a 24-year-old black female who presents to [facility] with complaints of Sickle Cell Crisis and lightheadedness. States she was recently hospitalized with SSC, pneumonia and CHF but left AMA. States she had to leave due to about to be evicted and had to get her rent paid and her daughter picked up. Patient denies SOB, or cough. Denies fever. States that she is lightheaded with position changes and extremely tired. States that her legs are hurting bad due to SSC. Denies any other complaints. Denies any medication use. - Past Medical History Past Medical History: Depression, Anemia, Asthma Additional Medical History: Sickle cell disease - Past Surgical History Surgical History: , Cholecystectomy Additional Surgical History: D&C - Family History Family Medical History: Diabetes Mellitus, Cancer - Social History Does patient currently use any type of tobacco product: No Have you used tobacco products in the last 12 months: No Type of Tobacco Use: None Does any household member use tobacco: No Alcohol Use: None Drug Use: None Prescription drug monitoring program results: PDMP reviewed and no concerns identified - Medications Home Medications: No Known Drug Allergies Allergy (Verified 12/25/17 18:12) CONTINUE taking the following medications hydrocodone-acetaminophen [[place]] 1 tab PO Q6H PRN 01/18/20 [History] - Review of Systems Constitutional: Malaise Eyes: No Symptoms Reported ENT: No Symptoms Reported Respiratory: No Symptoms Reported Cardiovascular: No Symptoms Reported Gastrointestinal: No Symptoms Reported Genitourinary: No Symptoms Reported Musculoskeletal: Leg Pain Skin: No Symptoms Reported Neurological: Weakness - Physical Exam Vital Signs: Temperature 98.6 F Pulse Rate [Right Brachial] 90 Respiratory Rate 20 Blood Pressure [Right Arm] 112/61 Blood Pressure [Left Arm] 109/65 O2 Sat by Pulse Oximetry 100 Oriented: Normal Eyes: Normal Ear: Normal Nose: Normal Throat: Normal Respiratory: Clear Throughout Cardiovascular: Normal : Normal Auscultation: Bowel Sounds: Normal Palpation: Normal Tenderness: Normal Skin: Normal, Other (Pale) Musculoskeletal: Normal Psychiatric: Normal Mood Description: Calm, Flat Affect: Normal Speech Pattern: Clear - Assessment/Plan (1) Acute extremity pain Status: Acute Plan: Labs, Pain medications (2) Pneumonia Status: Acute Plan: CXR (3) Sickle cell crisis Status: Acute Plan: Labs, Pain med, IVFs (4) Anemia Status: Chronic Plan: CBC, Possible transfusion - Review H&P Reviewed: Yes - Allergies Allergies/Adverse Reactions: Allergies Allergy/AdvReac Type Severity Reaction Status Date / Time No Known Drug Allergies Allergy Verified 12/25/17 18:12
[2020-01-18] MEDS: ZOSYN VIAL 4.5 GRAMS 4.5 G in NS 100 ML IV + SPIKE MINIBAG* 100 ML IV SCH ×2 (18:36→21:54)
[2020-01-18 20:19] LABS: RETICULOCYTE % 18.47 % (0.8-2.2)
[2020-01-19] MEDS: MORPHINE SULFATE INJ 2 MG INJ IVP PRN ×6 (00:32→21:09)
[2020-01-19] MEDS: ZOSYN VIAL 4.5 GRAMS 4.5 G in NS 100 ML IV + SPIKE MINIBAG* 100 ML IV SCH ×3 (05:25→21:09)
[2020-01-19 06:27] LABS: BASOPHILS # (AUTO) 0.1 X10^3/uL (0.0-0.1); BASOPHILS % (AUTO) 0.4 % (0.2-1.0); EOSINOPHILS # (AUTO) 0.1 x10^3/uL (0.0-0.2); EOSINOPHILS % (AUTO) 0.7 % (0.9-2.9); LYMPHOCYTES # (AUTO) 3.2 X10^3/uL (1.3-2.9); LYMPHOCYTES % (AUTO) 18.3 % (21.0-51.0); MEAN CORPUSCULAR HEMOGLOBIN 33.8 pg (27.0-34.0); MEAN CORPUSCULAR HGB CONC 34.8 g/dL (33.0-35.0); MEAN CORPUSCULAR VOLUME 97.1 fL (80.0-100.0); MEAN PLATELET VOLUME 6.7 fL (7.4-11.0); MONOCYTES # (AUTO) 2.2 x10^3/uL (0.3-0.8); MONOCYTES % (AUTO) 12.2 % (0.0-13.0); NEUTROPHILS # (AUTO) 12.1 x10^3/uL (2.2-4.8); NEUTROPHILS % (AUTO) 68.4 % (42.0-75.0); PLATELET COUNT 229 X10^3/uL (150.0-450.0); RED BLOOD COUNT 2.03 X10^6/uL (3.5-5.4); RED CELL DISTRIBUTION WIDTH 15.8 % (11.6-16.5); WHITE BLOOD COUNT 17.7 X10^3/uL (3.6-10.0)
[2020-01-19 06:28] LABS: ALANINE AMINOTRANSFERASE 17 Units/L (12-78); ALBUMIN 3.4 g/dL (3.4-5.0); ALKALINE PHOSPHATASE 56 Units/L (46-116); ASPARTATE AMINO TRANSFERASE 13 Units/L (15-37); BLOOD UREA NITROGEN 3 mg/dL (7-18); CARBON DIOXIDE 23.5 mmol/L (21-32); CHLORIDE 103 mmol/L (98-107); COR NA(FOR HYPERGLY) 137 mmol/L (136-145); CREATININE 0.46 mg/dL (0.55-1.02); SODIUM 136 mmol/L (136-145); eGFR NON BLACK RACES > 60 (>60)
[2020-01-19 06:56] LABS: HEMATOCRIT 19.7 % (36.0-47.0); HEMOGLOBIN 6.9 g/dL (12.0-16.0)
[2020-01-19] MEDS: ZITHROMAX INJ 500 MG VIAL 500 MG in D5W 250 ML IV 250 ML IV SCH (08:54)
[2020-01-19] MEDS: BENADRYL INJ 50 MG VIAL IVP SCH ×2 (09:00→17:24)
[2020-01-19] MEDS: HEMOCYTE-PLUS PO SCH (09:01)
[2020-01-19] MEDS: HYDREA PO SCH ×2 (09:01→21:10)
[2020-01-19] MEDS: FOLIC ACID TAB 1 MG PO SCH ×2 (09:01→21:10)
[2020-01-19] MEDS ORDERED: DUONEB 0.5 MG/3 MG (3 mL) NEB ONE (12:54)
[2020-01-19] MEDS: DUONEB 0.5 MG/3 MG (3 mL) NEB SCH ×2 (13:12→21:20)
[2020-01-19] MEDS ORDERED: NS 250 ML IV 250 ML IV ONE (14:53)
[2020-01-19 15:56] LABS: BASOPHILS # (AUTO) 0.1 X10^3/uL (0.0-0.1); BASOPHILS % (AUTO) 0.6 % (0.2-1.0); EOSINOPHILS # (AUTO) 0.2 x10^3/uL (0.0-0.2); HEMATOCRIT 21.2 % (36.0-47.0); HEMOGLOBIN 7.2 g/dL (12.0-16.0); LYMPHOCYTES # (AUTO) 3.4 X10^3/uL (1.3-2.9); LYMPHOCYTES % (AUTO) 18.2 % (21.0-51.0); MEAN CORPUSCULAR HEMOGLOBIN 33.1 pg (27.0-34.0); MEAN CORPUSCULAR VOLUME 97.4 fL (80.0-100.0); MEAN PLATELET VOLUME 6.5 fL (7.4-11.0); MONOCYTES # (AUTO) 2.2 x10^3/uL (0.3-0.8); MONOCYTES % (AUTO) 12.2 % (0.0-13.0); NEUTROPHILS # (AUTO) 12.6 x10^3/uL (2.2-4.8); PLATELET COUNT 238 X10^3/uL (150.0-450.0); RED BLOOD COUNT 2.18 X10^6/uL (3.5-5.4); RED CELL DISTRIBUTION WIDTH 15.8 % (11.6-16.5); WHITE BLOOD COUNT 18.4 X10^3/uL (3.6-10.0)
[2020-01-19 16:38] LABS: HYPOCHROMASIA 2+; PLATELET MORPHOLOGY COMMENT NORMAL (NORMAL)
[2020-01-20] MEDS: MORPHINE SULFATE INJ 2 MG INJ IVP PRN ×5 (01:05→22:30)
[2020-01-20] MEDS: BENADRYL INJ 50 MG VIAL IVP SCH ×3 (01:05→18:11)
[2020-01-20] MEDS: ZOSYN VIAL 4.5 GRAMS 4.5 G in NS 100 ML IV + SPIKE MINIBAG* 100 ML IV SCH ×3 (05:21→21:14)
[2020-01-20] MEDS: DUONEB 0.5 MG/3 MG (3 mL) NEB SCH ×4 (05:46→22:10)
[2020-01-20] MEDS ORDERED: K-RIDER 10 MEQ/NS 100 ML 10 MEQ/100 ML BAG IV PRN (06:45)
[2020-01-20] MEDS ORDERED: MAGNESIUM SULFATE 1 GRAM/100 mL PREMIX 1 GM/100 ML BAG IV PRN (06:45)
[2020-01-20] MEDS ORDERED: POTASSIUM CHL 40 MEQ/NS 0.45% 500 ML IV PRN (06:45)
[2020-01-20] MEDS ORDERED: KLOR-CON PO PRN (06:45)
[2020-01-20] MEDS ORDERED: MICRO K EXTEN CAP 10 MEQ PO PRN (06:45)
[2020-01-20] MEDS ORDERED: POTASSIUM CHL 60 MEQ/NS 0.45% 500 ML IV PRN (06:45)
[2020-01-20] MEDS ORDERED: POTASSIUM CHLORIDE LIQ 20 MEQ UDC PO PRN (06:45)
[2020-01-20 06:48] LABS: BASOPHILS # (AUTO) 0.2 X10^3/uL (0.0-0.1); BASOPHILS % (AUTO) 1.1 % (0.2-1.0); EOSINOPHILS # (AUTO) 0.2 x10^3/uL (0.0-0.2); EOSINOPHILS % (AUTO) 1.2 % (0.9-2.9); HEMATOCRIT 20.5 % (36.0-47.0); LYMPHOCYTES # (AUTO) 4.1 X10^3/uL (1.3-2.9); LYMPHOCYTES % (AUTO) 21.1 % (21.0-51.0); MEAN CORPUSCULAR HEMOGLOBIN 33.3 pg (27.0-34.0); MEAN CORPUSCULAR HGB CONC 34.1 g/dL (33.0-35.0); MEAN CORPUSCULAR VOLUME 97.7 fL (80.0-100.0); MEAN PLATELET VOLUME 6.8 fL (7.4-11.0); MONOCYTES # (AUTO) 2.4 x10^3/uL (0.3-0.8); MONOCYTES % (AUTO) 12.5 % (0.0-13.0); NEUTROPHILS # (AUTO) 12.6 x10^3/uL (2.2-4.8); NEUTROPHILS % (AUTO) 64.1 % (42.0-75.0); PLATELET COUNT 208 X10^3/uL (150.0-450.0); RED CELL DISTRIBUTION WIDTH 15.9 % (11.6-16.5); WHITE BLOOD COUNT 19.6 X10^3/uL (3.6-10.0)
[2020-01-20 06:49] LABS: ALANINE AMINOTRANSFERASE 16 Units/L (12-78); ALBUMIN 3.6 g/dL (3.4-5.0); ALKALINE PHOSPHATASE 56 Units/L (46-116); ASPARTATE AMINO TRANSFERASE 15 Units/L (15-37); BLOOD UREA NITROGEN 4 mg/dL (7-18); CALCIUM 9.2 mg/dL (8.5-10.1); CARBON DIOXIDE 24.2 mmol/L (21-32); CHLORIDE 103 mmol/L (98-107); CREATININE 0.47 mg/dL (0.55-1.02); SODIUM 136 mmol/L (136-145); TOTAL PROTEIN 8.3 g/dL (6.4-8.2); eGFR NON BLACK RACES > 60 (>60)
[2020-01-20 07:32] LABS: HYPOCHROMASIA SLIGHT; PLATELET MORPHOLOGY COMMENT NORMAL (NORMAL)
[2020-01-20] MEDS: TORADOL 15 MG VIAL IVP PRN ×2 (09:39→20:30)
[2020-01-20] MEDS: ZITHROMAX INJ 500 MG VIAL 500 MG in D5W 250 ML IV 250 ML IV SCH (09:39)
[2020-01-20] MEDS: NORCO 5/325 MG TAB PO PRN ×2 (09:41→17:48)
[2020-01-20] MEDS: HEMOCYTE-PLUS PO SCH (09:41)
[2020-01-20] MEDS: HYDREA PO SCH ×2 (09:41→20:29)
[2020-01-20] MEDS: K-DUR TAB 20 MEQ PO PRN (09:42)
[2020-01-20] MEDS: FOLIC ACID TAB 1 MG PO SCH ×2 (09:42→20:29)
--- NOTE | 2020-01-20 11:26 | RAD ---
Chest AP portableIndication: Chest pain and history of pneumoniaComparison January 18, 2020FINDINGSThere is no pneumothorax or effusion. There is no consolidation. Heart size is prominent. Monitor leads obscure minimal detail. There is no pneumothorax or effusion.IMPRESSIONProminent heart size without new acute chest process or change from the prior.Electronically signed by: ANGELICA CARUSO (Jan 20, 2020 11:26:39)
--- NOTE | 2020-01-20 18:07 | DR.H&P ---
H&P - History & Physical for Day of: H&P Date: 01/20/20 - Chief Complaint Chief Complaint: Mr. Rossi is a 24-year-old black female who was a direct admit from Dr. Preciado office yesterday after she presented for a follow up from a hospital admission last week. The patient was in the hospital last week for a sickle cell crisis and pneumonia. She signed out AMA late Saturday evening. The patient followed up yesterday for a visit. On admission, her white count was at 19.6, hemoglobin 7, and retic count was 18.4. She was started on antibiotic therapy, as well as a repeat chest x-ray. Her chest x-ray was showing no pneumonia. This morning, the patients white count was at 17.7. Hemoglobin was at 6.9 and we rechecked it later and it was at 7.2. She did have normal renal function with a BUN of 4, creatine 0.47, and her bilirubin was 1.3. The patient is on narcotic pain control with morphine, which she states has not been holding her. She has been receiving 2 mg around the clock every four hours. The patient is having some itching as a side effect from narcotic pain control, so we added her on Benadryl yesterday. We also resumed her home [place] and ordered as needed Toradol as well. The patient was started on pulmonary toileting, as well as Duonebs and encouraged frequent ambulation and the use of supplemental oxygen. - Past Medical History Past Medical History: Depression, Anemia, Asthma Additional Medical History: Sickle cell disease - Past Surgical History Surgical History: , Cholecystectomy Additional Surgical History: D&C - Family History Family Medical History: Diabetes Mellitus, Cancer - Social History Does patient currently use any type of tobacco product: No Have you used tobacco products in the last 12 months: No Type of Tobacco Use: None Does any household member use tobacco: No Alcohol Use: None Drug Use: None - Medications Home Medications: No Known Drug Allergies Allergy (Verified 12/25/17 18:12) CONTINUE taking the following medications hydrocodone-acetaminophen [[place]] 1 tab PO Q6H PRN 01/18/20 [History] - Review of Systems Constitutional: Chills, Weakness Eyes: No Symptoms Reported ENT: No Symptoms Reported Respiratory: denies: Cough, Shortness of Breath Cardiovascular: No Symptoms Reported Gastrointestinal: Nausea Genitourinary: No Symptoms Reported Musculoskeletal: Arm Pain, Back Pain, Leg Pain Skin: No Symptoms Reported Neurological: No Symptoms Reported - Physical Exam Vital Signs: Temperature 98.0 F Pulse Rate [Left Brachial] 67 Pulse Rate [Right Brachial] 67 Respiratory Rate 18 Blood Pressure [Right Arm] 97/54 Blood Pressure [Left Arm] 118/57 Blood Pressure 127/67 O2 Sat by Pulse Oximetry 100 Oriented: Normal Eyes: Normal Ear: Normal Nose: Normal Throat: Dry Respiratory: RLL Diminished, LLL Diminished Cardiovascular: Normal : Normal Auscultation: Bowel Sounds: Normal Palpation: Normal Tenderness: Normal Skin: Normal Musculoskeletal: Shoulder, Arm, Back:Thoracic, Back:Lumbar, Tender Affect: Anxious Speech Pattern: Clear, Appropriate - Assessment/Plan (1) Pneumonia Status: Acute Plan: IV ABTX, RESP THERAPY, SUPPLEMENTAL O2. IV HYDRATION, PAIN CONTROL. PT/RT, ENCOURAGE ORAL HYDRATION AND FREQUENT AMBULATION. HOME MEDICATION RESUMED. REPEAT CXR. (2) Sickle cell crisis Status: Acute (3) Anemia Status: Chronic - Allergies Allergies/Adverse Reactions: Allergies Allergy/AdvReac Type Severity Reaction Status Date / Time No Known Drug Allergies Allergy Verified 12/25/17 18:12
[2020-01-21] MEDS: NORCO 5/325 MG TAB PO PRN ×3 (01:00→21:39)
[2020-01-21] MEDS: BENADRYL INJ 50 MG VIAL IVP SCH ×3 (01:35→17:17)
[2020-01-21] MEDS: MORPHINE SULFATE INJ 2 MG INJ IVP PRN ×4 (02:34→19:39)
[2020-01-21] MEDS: ZOSYN VIAL 4.5 GRAMS 4.5 G in NS 100 ML IV + SPIKE MINIBAG* 100 ML IV SCH ×3 (05:13→21:32)
[2020-01-21] MEDS: TORADOL 15 MG VIAL IVP PRN (05:14)
[2020-01-21] MEDS: DUONEB 0.5 MG/3 MG (3 mL) NEB SCH ×3 (05:40→22:00)
[2020-01-21 05:42] LABS: BILIRUBIN,URINE NEGATIVE (NEGATIVE); BLOOD/HEMOGLOBIN,URINE NEGATIVE (NEGATIVE); GLUCOSE, URINE NEGATIVE (NEGATIVE); KETONES,URINE NEGATIVE (NEGATIVE); LEUKOCYTE ESTERASE ,URINE 1+ (NEGATIVE); NITRITES,URINE NEGATIVE (NEGATIVE); PROTEIN,URINE NEGATIVE (NEGATIVE); UROBILINOGEN,URINE NORMAL (NORMAL)
[2020-01-21 05:49] LABS: APPEARANCE,URINE CLEAR (CLEAR); BACTERIA,URINE TRACE /HPF (NEGATIVE); COLOR,URINE YELLOW (YELLOW); RBC,URINE NONE SEEN /HPF (0-3); SQUAMOUS EPITHELIAL CELL,UR MODERATE /HPF (NEGATIVE)
[2020-01-21] MEDS: ZOFRAN INJ 4 MG VIAL IVP PRN ×2 (06:40→19:39)
[2020-01-21 06:51] LABS: BASOPHILS # (AUTO) 0.1 X10^3/uL (0.0-0.1); BASOPHILS % (AUTO) 0.4 % (0.2-1.0); EOSINOPHILS # (AUTO) 0.2 x10^3/uL (0.0-0.2); EOSINOPHILS % (AUTO) 1.2 % (0.9-2.9); HEMATOCRIT 20.2 % (36.0-47.0); LYMPHOCYTES # (AUTO) 4.7 X10^3/uL (1.3-2.9); LYMPHOCYTES % (AUTO) 24.8 % (21.0-51.0); MEAN CORPUSCULAR HEMOGLOBIN 33.7 pg (27.0-34.0); MEAN CORPUSCULAR HGB CONC 34.5 g/dL (33.0-35.0); MEAN CORPUSCULAR VOLUME 97.7 fL (80.0-100.0); MEAN PLATELET VOLUME 7.2 fL (7.4-11.0); MONOCYTES # (AUTO) 2.2 x10^3/uL (0.3-0.8); MONOCYTES % (AUTO) 11.8 % (0.0-13.0); NEUTROPHILS # (AUTO) 11.6 x10^3/uL (2.2-4.8); NEUTROPHILS % (AUTO) 61.8 % (42.0-75.0); PLATELET COUNT 210 X10^3/uL (150.0-450.0); RED BLOOD COUNT 2.06 X10^6/uL (3.5-5.4); RED CELL DISTRIBUTION WIDTH 15.2 % (11.6-16.5); WHITE BLOOD COUNT 18.9 X10^3/uL (3.6-10.0)
[2020-01-21 06:55] LABS: HEMOGLOBIN 6.9 g/dL (12.0-16.0)
[2020-01-21 07:01] LABS: ALANINE AMINOTRANSFERASE 18 Units/L (12-78); ALBUMIN 3.3 g/dL (3.4-5.0); ALKALINE PHOSPHATASE 52 Units/L (46-116); ASPARTATE AMINO TRANSFERASE 18 Units/L (15-37); BLOOD UREA NITROGEN 7 mg/dL (7-18); CALCIUM 8.8 mg/dL (8.5-10.1); CARBON DIOXIDE 25.4 mmol/L (21-32); CHLORIDE 104 mmol/L (98-107); COR CA(FOR HYPOALB) 9.4 mg/dL (8.5-10.1); SODIUM 138 mmol/L (136-145); TOTAL PROTEIN 7.8 g/dL (6.4-8.2); eGFR NON BLACK RACES > 60 (>60)
[2020-01-21 08:43] LABS: RETICULOCYTE % 14.11 % (0.8-2.2)
[2020-01-21] MEDS: ZITHROMAX INJ 500 MG VIAL 500 MG in D5W 250 ML IV 250 ML IV SCH (09:17)
[2020-01-21] MEDS: HEMOCYTE-PLUS PO SCH (09:19)
[2020-01-21] MEDS: HYDREA PO SCH ×2 (09:19→20:17)
[2020-01-21] MEDS: FOLIC ACID TAB 1 MG PO SCH ×2 (09:19→20:16)
[2020-01-21] MEDS: K-DUR TAB 20 MEQ PO PRN (09:20)
[2020-01-22] MEDS: MORPHINE SULFATE INJ 2 MG INJ IVP PRN ×3 (00:31→08:57)
[2020-01-22] MEDS: BENADRYL INJ 50 MG VIAL IVP SCH ×2 (00:32→08:52)
[2020-01-22] MEDS: ZOSYN VIAL 4.5 GRAMS 4.5 G in NS 100 ML IV + SPIKE MINIBAG* 100 ML IV SCH (05:02)
[2020-01-22 06:25] LABS: BASOPHILS # (AUTO) 0.1 X10^3/uL (0.0-0.1); BASOPHILS % (AUTO) 0.6 % (0.2-1.0); EOSINOPHILS # (AUTO) 0.3 x10^3/uL (0.0-0.2); HEMATOCRIT 20.2 % (36.0-47.0); LYMPHOCYTES # (AUTO) 3.7 X10^3/uL (1.3-2.9); LYMPHOCYTES % (AUTO) 22.3 % (21.0-51.0); MEAN CORPUSCULAR HEMOGLOBIN 33.4 pg (27.0-34.0); MEAN CORPUSCULAR HGB CONC 34.4 g/dL (33.0-35.0); MEAN CORPUSCULAR VOLUME 97.1 fL (80.0-100.0); MEAN PLATELET VOLUME 6.8 fL (7.4-11.0); MONOCYTES # (AUTO) 2.3 x10^3/uL (0.3-0.8); MONOCYTES % (AUTO) 13.8 % (0.0-13.0); NEUTROPHILS # (AUTO) 10.1 x10^3/uL (2.2-4.8); NEUTROPHILS % (AUTO) 61.3 % (42.0-75.0); PLATELET COUNT 212 X10^3/uL (150.0-450.0); RED BLOOD COUNT 2.08 X10^6/uL (3.5-5.4); WHITE BLOOD COUNT 16.5 X10^3/uL (3.6-10.0)
[2020-01-22] MEDS: DUONEB 0.5 MG/3 MG (3 mL) NEB SCH (06:30)
[2020-01-22 06:34] LABS: ALANINE AMINOTRANSFERASE 18 Units/L (12-78); ALBUMIN 3.4 g/dL (3.4-5.0); ALKALINE PHOSPHATASE 51 Units/L (46-116); ASPARTATE AMINO TRANSFERASE 20 Units/L (15-37); BLOOD UREA NITROGEN 5 mg/dL (7-18); CALCIUM 8.9 mg/dL (8.5-10.1); CARBON DIOXIDE 24.5 mmol/L (21-32); CHLORIDE 104 mmol/L (98-107); CREATININE 0.64 mg/dL (0.55-1.02); LACTATE DEHYDROGENASE 273 Units/L (81-234); SODIUM 138 mmol/L (136-145); eGFR NON BLACK RACES > 60 (>60)
[2020-01-22 06:40] LABS: HEMOGLOBIN 6.9 g/dL (12.0-16.0)
[2020-01-22 08:21] VITALS: BP 99/53
[2020-01-22] MEDS: HEMOCYTE-PLUS PO SCH (08:52)
[2020-01-22] MEDS: FOLIC ACID TAB 1 MG PO SCH (08:52)
[2020-01-22] MEDS: K-DUR TAB 20 MEQ PO PRN (08:53)
[2020-01-22] MEDS: HYDREA PO SCH (08:53)
[2020-01-22] MEDS: ZITHROMAX INJ 500 MG VIAL 500 MG in D5W 250 ML IV 250 ML IV SCH (09:34)
== END 2020-01-22 09:50 | disposition home or self-care (01) | DRG 811 ==
LOC: MED/SURG → OBSVTOIN 14:02
PROVIDERS: ADMIT Internal Medicine; ATTEND Internal Medicine
DX: D57.00 Hb-SS disease with crisis, unspecified; R42 Dizziness and giddiness; J18.8 Other pneumonia, unspecified organism; M79.606 Pain in leg, unspecified; D64.9 Anemia, unspecified

== ENCOUNTER 2020-05-14 01:03 | Inpatient (IN) ==
[2020-05-14 01:12] VITALS: BMI 23.9
--- NOTE | 2020-05-14 02:07 | DR.EXTPAIN ---
HPI Time seen Time Seen by Provider: 05/14/20 02:06 PCP Primary Care Physician: Ginny HPI Comment HPI Comment: PATIENT IS 24YR OLD FEMALE IN ER WITH SICKLE CELL CRISIS. PATIENT HAVE HISTORY OF SICKLE CELL DISEASE. SHE STARTED HAVING INCREASING PAIN 3 DAYS AGO. NO FEVER OR DYSURIA. PAIN IS SHARP AND 10/10. Complaint/Symptoms Chief Complaint Doctor Comments: SICKLE CELL CRISIS, LEG AND HIP PAIN. Chief Complaint:: I am in a lot of pain. It has been going on for about 2-3 days. 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 Past Surgical History Comment: DNC Family History History of Family Medical Conditions: No Family Medical History: Diabetes Mellitus and Cancer Social History Alcohol Use: None Do you use any recreational Drugs:: No Lives With: Alone Lives Where: Home Travel Risk Coronavirus risk:travel/contact w/high risk person: No Has patient experienced Coronavirus symptoms: No Infectious screening Have you traveled outside the country in the last 6 months?: No Isolation: Standard ROS Review of Systems Constitutional: No Symptoms Reported and See HPI; negative Fever, Weakness and Fatigue Eyes: No Symptoms Reported and See HPI ENTM: No Symptoms Reported and See HPI; negative Nose Discharge and Nose Congestion Respiratoy: No Symptoms Reported and See HPI; negative Moist Cough, Short of Breath and Wheezing Cardiovascular: No Symptoms Reported and See HPI; negative Chest Pain Gastrointestinal/Abdominal: No Symptoms Reported and See HPI; negative Abdominal Pain, Diarrhea and Vomiting Genitourinary: No Symptoms Reported and See HPI; negative Dysuria Neurological: No Symptoms Reported and See HPI; negative Headache, Weakness and Dizziness Musculoskeletal: No Symptoms Reported, See HPI, Back Pain, Right, Left, Hip and Leg Integumentary: No Symptoms Reported and See HPI; negative Rash and Juandice Hematologic/Lymphatic: No Symptoms Reported and See HPI; negative Easy Bruising and Swollen Glands Endocrine: No Symptoms Reported and See HPI; negative Increased Thirst and Increased Urine Psychiatric: No Symptoms Reported and See HPI All Other Systems: Reviewed and Negative PE Vital Signs Vitals: Temperature 97.6 F Pulse Rate [Left] 82 Pulse Rate 100 Respiratory Rate 16 Blood Pressure [Right Arm] 114/66 Blood Pressure [Left Arm] 99/53 Blood Pressure 122/68 O2 Sat by Pulse Oximetry 95 General Limitations: No Limitations General Appearance: Alert and In No Apparent Distress Head Head Exam: Normal Inspection and Atraumatic Eyes Eye exam: Normal Appearance and PERRL; negative Scleral Icterus and Conjunctival Injection ENT ENT Exam: Normal Exam, Normal Oropharynx, Normal External Ear Exam and TM's Normal Bilaterally Neck Neck Exam: Normal Inspection and Trachea Midline; negative Tenderness and Lymphadenopathy Chest Chest Inspection: Normal Inspection and Symmetric Chest Wall Rise; negative Tenderness Respiratory Respiratory Exam: Normal Lung Sounds Bilat; negative Accessory Muscle Use, Chest Wall Tenderness and Respiratory Distress Respiratory Exam: Bilateral: Clear to Auscultation Cardiovascular Cardiovascular Exam: Regular Rate, Normal Rhythm and Normal Heart Sounds; negative Systolic Murmur and Diastolic Murmur Abdominal Exam Abdominal Exam: Normal Inspection, Normal Bowel Sounds and Soft; negative Tenderness Extremities Extremities Exam: Normal Inspection Back Back Exam: Normal Inspection; negative (R) CVA Tenderness and (L) CVA Tenderness Neurological Neurological Exam: Alert, Oriented X3 and CN II-XII Intact Psychiatric Psychiatric Exam: Normal Affect and Normal Mood Skin Skin Exam: Warm, Dry, Intact and Normal Color COURSE Treatment Treatment: SEE ORDERS. Education/Counseling Education/Counseling: Patient Educated On: Diagnosis ROR Labs Reviewed Laboratory Results Reviewed?: Yes Result Diagrams: 05/20/20 05:42 05/20/20 05:42 Laboratory: WBC 21.4 X10^3/uL (3.6-10.0) H 05/14/20 02:30 RBC 2.42 X10^6/uL (3.5-5.4) L 05/14/20 02:30 Hgb 8.1 g/dL (12.0-16.0) L 05/14/20 02:30 Hct 23.9 % (36.0-47.0) L 05/14/20 02:30 MCV 98.5 fL (80.0-100.0) 05/14/20 02:30 MCH 33.4 pg (27.0-34.0) 05/14/20 02:30 MCHC 33.9 g/dL (33.0-35.0) 05/14/20 02:30 RDW 16.0 % (11.6-16.5) 05/14/20 02:30 Plt Count 212 X10^3/uL (150.0-450.0) 05/14/20 02:30 Plt Count Comment Adequate (ADEQUATE) 05/14/20 02:30 MPV 8.2 fL (7.4-11.0) 05/14/20 02:30 Neut % (Auto) 76.5 % (42.0-75.0) H 05/14/20 02:30 Lymph % (Auto) 13.3 % (21.0-51.0) L 05/14/20 02:30 [place] % (Auto) 9.5 % (0.0-13.0) 05/14/20 02:30 Eos % (Auto) 0.5 % (0.9-2.9) L 05/14/20 02:30 Baso % (Auto) 0.2 % (0.2-1.0) 05/14/20 02:30 Neut # (Auto) 16.4 x10^3/uL (2.2-4.8) H 05/14/20 02:30 Lymph # (Auto) 2.9 X10^3/uL (1.3-2.9) 05/14/20 02:30 [place] # (Auto) 2.0 x10^3/uL (0.3-0.8) H 05/14/20 02:30 Eos # (Auto) 0.1 x10^3/uL (0.0-0.2) 05/14/20 02:30 Baso # (Auto) 0.0 X10^3/uL (0.0-0.1) 05/14/20 02:30 Absolute Nucleated RBC 0.4 /100WBC 05/14/20 02:30 Total Counted 100 05/14/20 02:30 Neutrophils % (Manual) 82 % (39-76) H 05/14/20 02:30 Lymphocytes % (Manual) 14 % (13-43) 05/14/20 02:30 Monocytes % (Manual) 3 % (4-9) L 05/14/20 02:30 Eosinophils % (Manual) 1 % (0-6) 05/14/20 02:30 Nucleated RBCs 2 05/14/20 02:30 Plt Morphology Comment Normal (NORMAL) 05/14/20 02:30 RBC Morphology Abnormal (NORMAL) A 05/14/20 02:30 Hypochromasia Slight A 05/14/20 02:30 Poikilocytosis Present 05/14/20 02:30 Sickle Cells Present 05/14/20 02:30 Target Cells Present 05/14/20 02:30 [place] Cells Present 05/14/20 02:30 Absolute Retic 0.2938 10^6/uL 05/14/20 02:30 Percent Retic 12.38 % (0.8-2.2) H 05/14/20 02:30 SARS-CoV-2 (PCR) Negative (NEGATIVE) 05/14/20 06:01 Influenza Type A (PCR) Negative (NEGATIVE) 05/14/20 06:01 Influenza Type B (PCR) Negative (NEGATIVE) 05/14/20 06:01 RSV (PCR) Negative (NEGATIVE) 05/14/20 06:01 Opioid Opioid Risk Tool Age ([place]ir box if 16-45): Yes History of Preadolescent Sexual Abuse: No Total: 1 Total Score Risk Category: Low Risk Copyright: Donaldo PEDRAZA predicting aberrant behaviors Diagnosis Discharge Problem: Sickle cell crisis Leukocytosis Qualifiers: Leukocytosis type: unspecified Qualified Code(s): D72.829 - Elevated white blood cell count, unspecified Instructions Instructions: Anemia Hypokalemia Opioid Pain Medicine Information Rehydration, Adult Forms: Precautions for COVID19 Patient Portal Social Distancing
[2020-05-14] MEDS ORDERED: NS 1000 ML 1,000 ML IV ONE (02:13)
[2020-05-14] MEDS ORDERED: NS 1000 ML 1,000 ML ONE ×3 (02:19→18:47)
[2020-05-14 03:05] LABS: BASOPHILS % (AUTO) 0.2 % (0.2-1.0); EOSINOPHILS # (AUTO) 0.1 x10^3/uL (0.0-0.2); EOSINOPHILS % (AUTO) 0.5 % (0.9-2.9); HEMATOCRIT 23.9 % (36.0-47.0); HEMOGLOBIN 8.1 g/dL (12.0-16.0); LYMPHOCYTES # (AUTO) 2.9 X10^3/uL (1.3-2.9); LYMPHOCYTES % (AUTO) 13.3 % (21.0-51.0); MEAN CORPUSCULAR HEMOGLOBIN 33.4 pg (27.0-34.0); MEAN CORPUSCULAR HGB CONC 33.9 g/dL (33.0-35.0); MEAN CORPUSCULAR VOLUME 98.5 fL (80.0-100.0); MEAN PLATELET VOLUME 8.2 fL (7.4-11.0); MONOCYTES % (AUTO) 9.5 % (0.0-13.0); NEUTROPHILS # (AUTO) 16.4 x10^3/uL (2.2-4.8); NEUTROPHILS % (AUTO) 76.5 % (42.0-75.0); PLATELET COUNT 212 X10^3/uL (150.0-450.0); RED BLOOD COUNT 2.42 X10^6/uL (3.5-5.4); WHITE BLOOD COUNT 21.4 X10^3/uL (3.6-10.0)
[2020-05-14 03:28] LABS: HYPOCHROMASIA SLIGHT; PLATELET MORPHOLOGY COMMENT NORMAL (NORMAL); POIKILOCYTOSIS PRESENT; SICKLE CELLS PRESENT
[2020-05-14 03:29] LABS: BURR CELLS PRESENT; TARGET CELLS PRESENT
[2020-05-14 03:30] LABS: RETICULOCYTE % 12.38 % (0.8-2.2)
[2020-05-14] MEDS ORDERED: DILAUDID INJ IVP ONE ×2 (03:42→07:49)
[2020-05-14] MEDS ORDERED: DILAUDID INJ ONE ×6 (03:45→23:52)
[2020-05-14] MEDS ORDERED: NEURONTIN TAB 600 MG PO ONE (07:18)
[2020-05-14] MEDS ORDERED: NEURONTIN TAB 600 MG PO SCH (08:00)
[2020-05-14] MEDS ORDERED: DILAUDID INJ IVP PRN (08:38)
[2020-05-14] MEDS: NS 1000 ML 1,000 ML IV SCH ×2 (09:28→21:57)
[2020-05-14 10:09] LABS: ALANINE AMINOTRANSFERASE 9 Units/L (12-78); ALBUMIN 2.6 g/dL (3.4-5.0); ALKALINE PHOSPHATASE 77 Units/L (46-116); ASPARTATE AMINO TRANSFERASE 22 Units/L (15-37); BLOOD UREA NITROGEN 2 mg/dL (7-18); CARBON DIOXIDE 25.6 mmol/L (21-32); CHLORIDE 104 mmol/L (98-107); COR CA(FOR HYPOALB) 9.1 mg/dL (8.5-10.1); CREATININE 0.47 mg/dL (0.55-1.02); SODIUM 139 mmol/L (136-145); TOTAL PROTEIN 6.8 g/dL (6.4-8.2); eGFR NON BLACK RACES > 60 (>60)
[2020-05-14] MEDS ORDERED: BENADRYL INJ 50 MG VIAL ONE ×2 (10:37→19:45)
[2020-05-14] MEDS: HYDREA PO SCH ×2 (10:55→20:09)
[2020-05-14] MEDS: FOLIC ACID TAB 1 MG PO SCH ×2 (10:55→20:09)
--- NOTE | 2020-05-14 12:02 | DR.H&P ---
H&P History & Physical for Day of: H&P Date: 05/14/20 Chief Complaint Chief Complaint: generalized pain Allergies Allergies Allergy/AdvReac Type Severity Reaction Status Date / Time No Known Drug Allergies Allergy Verified 05/14/20 01:12 History of Present Illness History of Present Illness: Ms Rossi is a 24y/o female with a PMH of sickle cell disease presented with worsening generalized pain for the past 3 days. She reports worsening pain in her lower back. Her father recently so she has been under a lot of stress. Denies fever or chills. Denies cough or SOB. Denies N/V/D or abdominal pain. She reports her last flare up for last year. On exam, patient is resting comfortably but reports her pain is not being controlled with the current dose. Labs: Hgb 8.1 WBC 21.4 K: 3.0 She was started on IVF, pain control with Dilaudid 1 mg q4H prn. Plan: continue hydration with normal saline, replace K. Resume home meds. Increase Dilaudid to 2 mg q4h prn, add Benadryl. Monitor AM labs. 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 Additional Surgical History: D&C Family History Family Medical History: Diabetes Mellitus and Cancer Social History Does patient currently use any type of tobacco product: No Have you used tobacco products in the last 12 months: No Type of Tobacco Use: None Does any household member use tobacco: No Alcohol Use: None Drug Use: None Medications Home Medications: No Known Drug Allergies Allergy (Verified 05/14/20 01:12) Labs Result Diagrams: 05/14/20 02:30 05/14/20 09:50 Labs: Laboratory WBC 21.4 X10^3/uL (3.6-10.0) H 05/14/20 02:30 RBC 2.42 X10^6/uL (3.5-5.4) L 05/14/20 02:30 Hgb 8.1 g/dL (12.0-16.0) L 05/14/20 02:30 Hct 23.9 % (36.0-47.0) L 05/14/20 02:30 MCV 98.5 fL (80.0-100.0) 05/14/20 02:30 MCH 33.4 pg (27.0-34.0) 05/14/20 02:30 MCHC 33.9 g/dL (33.0-35.0) 05/14/20 02:30 RDW 16.0 % (11.6-16.5) 05/14/20 02:30 Plt Count 212 X10^3/uL (150.0-450.0) 05/14/20 02:30 Plt Count Comment Adequate (ADEQUATE) 05/14/20 02:30 MPV 8.2 fL (7.4-11.0) 05/14/20 02:30 Neut % (Auto) 76.5 % (42.0-75.0) H 05/14/20 02:30 Lymph % (Auto) 13.3 % (21.0-51.0) L 05/14/20 02:30 [place] % (Auto) 9.5 % (0.0-13.0) 05/14/20 02:30 Eos % (Auto) 0.5 % (0.9-2.9) L 05/14/20 02:30 Baso % (Auto) 0.2 % (0.2-1.0) 05/14/20 02:30 Neut # (Auto) 16.4 x10^3/uL (2.2-4.8) H 05/14/20 02:30 Lymph # (Auto) 2.9 X10^3/uL (1.3-2.9) 05/14/20 02:30 [place] # (Auto) 2.0 x10^3/uL (0.3-0.8) H 05/14/20 02:30 Eos # (Auto) 0.1 x10^3/uL (0.0-0.2) 05/14/20 02:30 Baso # (Auto) 0.0 X10^3/uL (0.0-0.1) 05/14/20 02:30 Absolute Nucleated RBC 0.4 /100WBC 05/14/20 02:30 Total Counted 100 05/14/20 02:30 Neutrophils % (Manual) 82 % (39-76) H 05/14/20 02:30 Lymphocytes % (Manual) 14 % (13-43) 05/14/20 02:30 Monocytes % (Manual) 3 % (4-9) L 05/14/20 02:30 Eosinophils % (Manual) 1 % (0-6) 05/14/20 02:30 Nucleated RBCs 2 05/14/20 02:30 Plt Morphology Comment Normal (NORMAL) 05/14/20 02:30 RBC Morphology Abnormal (NORMAL) A 05/14/20 02:30 Hypochromasia Slight A 05/14/20 02:30 Poikilocytosis Present 05/14/20 02:30 Sickle Cells Present 05/14/20 02:30 Target Cells Present 05/14/20 02:30 [place] Cells Present 05/14/20 02:30 Absolute Retic 0.2938 10^6/uL 05/14/20 02:30 Percent Retic 12.38 % (0.8-2.2) H 05/14/20 02:30 Sodium 139 mmol/L (136-145) 05/14/20 09:50 Corrected Sodium TNP 05/14/20 09:50 Potassium 3.0 mmol/L (3.5-5.1) L* 05/14/20 09:50 Chloride 104 mmol/L (98-107) 05/14/20 09:50 Carbon Dioxide 25.6 mmol/L (21-32) 05/14/20 09:50 BUN 2 mg/dL (7-18) L 05/14/20 09:50 Creatinine 0.47 mg/dL (0.55-1.02) L 05/14/20 09:50 Est GFR (MDRD) Af Amer > 60 (>60) 05/14/20 09:50 Est GFR (MDRD) Non-Af > 60 (>60) 05/14/20 09:50 Glucose 95 mg/dL (65-99) 05/14/20 09:50 Calcium 8.0 mg/dL (8.5-10.1) L 05/14/20 09:50 Corrected Calcium 9.1 mg/dL (8.5-10.1) 05/14/20 09:50 Total Bilirubin 0.90 mg/dL (0.2-1.0) 05/14/20 09:50 AST 22 Units/L (15-37) 05/14/20 09:50 ALT 9 Units/L (12-78) L 05/14/20 09:50 Alkaline Phosphatase 77 Units/L (46-116) 05/14/20 09:50 Total Protein 6.8 g/dL (6.4-8.2) 05/14/20 09:50 Albumin 2.6 g/dL (3.4-5.0) L 05/14/20 09:50 Globulin 4.2 g/dL (2.5-4.5) 05/14/20 09:50 Albumin/Globulin Ratio 0.6 Ratio (1.1-2.1) L 05/14/20 09:50 SARS-CoV-2 (PCR) Negative (NEGATIVE) 05/14/20 06:01 Influenza Type A (PCR) Negative (NEGATIVE) 05/14/20 06:01 Influenza Type B (PCR) Negative (NEGATIVE) 05/14/20 06:01 RSV (PCR) Negative (NEGATIVE) 05/14/20 06:01 Review of Systems Constitutional: Weakness Eyes: No Symptoms Reported ENT: No Symptoms Reported Respiratory: No Symptoms Reported Cardiovascular: No Symptoms Reported Gastrointestinal: No Symptoms Reported Genitourinary: No Symptoms Reported Musculoskeletal: Shoulder Pain, Arm Pain, Back Pain and Leg Pain Skin: No Symptoms Reported Neurological: No Symptoms Reported Physical Exam Vital Signs: Temperature 98.2 F Pulse Rate [Left] 83 Pulse Rate 100 Respiratory Rate 14 Blood Pressure [Right Arm] 105/57 Blood Pressure [Left Arm] 99/53 Blood Pressure 122/68 O2 Sat by Pulse Oximetry 95 Oriented: Normal Eyes: Normal Ear: Normal Nose: Normal Throat: Normal Respiratory: Clear Throughout Cardiovascular: Normal Auscultation: Bowel Sounds: Normal Tenderness: Normal Skin: Normal Musculoskeletal: Normal Psychiatric: Anxiety Mood Description: Calm Affect: Normal Speech Pattern: Clear and Appropriate Assessment/Plan (1) Sickle cell crisis: Status: Acute (2) Back pain: Qualifiers: Back pain laterality: bilateral Back pain location: low back pain Chronicity: acute Sciatica laterality: bilateral sciatica Sciatica presence: with sciatica Qualified Code(s): M54.42 - Lumbago with sciatica, left side; M54.41 - Lumbago with sciatica, right side Status: Acute (3) Acute extremity pain: Status: Acute (4) Anemia: Qualifiers: Anemia type: unspecified type Qualified Code(s): D64.9 - Anemia, unspecified Status: Chronic Review H&P Reviewed: Yes Patient was examined?: Yes
[2020-05-14] MEDS: BENADRYL INJ 50 MG VIAL IV PRN ×2 (12:12→19:51)
[2020-05-14] MEDS ORDERED: K-DUR TAB 20 MEQ PO ONE (12:13)
[2020-05-14] MEDS: K-DUR TAB 20 MEQ PO SCH ×2 (13:11→22:33)
[2020-05-14] MEDS: DILAUDID INJ IVP PRN ×3 (15:49→23:58)
[2020-05-14] MEDS: K-DUR TAB 20 MEQ PO ONE (19:53)
[2020-05-15] MEDS: NS 1000 ML 1,000 ML IV SCH (01:06)
[2020-05-15] MEDS ORDERED: BENADRYL INJ 50 MG VIAL ONE ×3 (03:55→21:05)
[2020-05-15] MEDS ORDERED: DILAUDID INJ ONE ×5 (03:55→21:04)
[2020-05-15] MEDS: BENADRYL INJ 50 MG VIAL IV PRN ×3 (04:01→21:20)
[2020-05-15] MEDS: DILAUDID INJ IVP PRN ×5 (04:01→21:20)
[2020-05-15 07:58] LABS: ALANINE AMINOTRANSFERASE < 6 Units/L (12-78); ALBUMIN 2.3 g/dL (3.4-5.0); ALKALINE PHOSPHATASE 74 Units/L (46-116); ASPARTATE AMINO TRANSFERASE 16 Units/L (15-37); BLOOD UREA NITROGEN 2 mg/dL (7-18); CALCIUM 8.1 mg/dL (8.5-10.1); CARBON DIOXIDE 21.4 mmol/L (21-32); CHLORIDE 106 mmol/L (98-107); COR CA(FOR HYPOALB) 9.5 mg/dL (8.5-10.1); CREATININE 0.39 mg/dL (0.55-1.02); SODIUM 139 mmol/L (136-145); TOTAL PROTEIN 6.3 g/dL (6.4-8.2); eGFR NON BLACK RACES > 60 (>60)
[2020-05-15 07:59] LABS: BASOPHILS # (AUTO) 0.1 X10^3/uL (0.0-0.1); BASOPHILS % (AUTO) 0.3 % (0.2-1.0); EOSINOPHILS # (AUTO) 0.2 x10^3/uL (0.0-0.2); EOSINOPHILS % (AUTO) 1.1 % (0.9-2.9); HEMATOCRIT 20.1 % (36.0-47.0); LYMPHOCYTES # (AUTO) 4.3 X10^3/uL (1.3-2.9); LYMPHOCYTES % (AUTO) 20.5 % (21.0-51.0); MEAN CORPUSCULAR HEMOGLOBIN 33.2 pg (27.0-34.0); MEAN CORPUSCULAR HGB CONC 33.6 g/dL (33.0-35.0); MEAN CORPUSCULAR VOLUME 98.7 fL (80.0-100.0); MONOCYTES # (AUTO) 2.7 x10^3/uL (0.3-0.8); MONOCYTES % (AUTO) 13.1 % (0.0-13.0); NEUTROPHILS # (AUTO) 13.6 x10^3/uL (2.2-4.8); PLATELET COUNT 171 X10^3/uL (150.0-450.0); RED BLOOD COUNT 2.03 X10^6/uL (3.5-5.4); WHITE BLOOD COUNT 20.9 X10^3/uL (3.6-10.0)
[2020-05-15 08:02] LABS: HEMOGLOBIN 6.7 g/dL (12.0-16.0)
[2020-05-15] MEDS ORDERED: K-DUR TAB 20 MEQ PO ONE ×3 (08:02→21:05)
[2020-05-15] MEDS: HYDREA PO SCH ×2 (08:08→21:20)
[2020-05-15] MEDS: FOLIC ACID TAB 1 MG PO SCH ×2 (08:09→21:20)
[2020-05-15 08:38] LABS: BILIRUBIN,URINE NEGATIVE (NEGATIVE); BLOOD/HEMOGLOBIN,URINE 2+ (NEGATIVE); GLUCOSE, URINE NEGATIVE (NEGATIVE); KETONES,URINE NEGATIVE (NEGATIVE); LEUKOCYTE ESTERASE ,URINE 3+ (NEGATIVE); NITRITES,URINE NEGATIVE (NEGATIVE); PROTEIN,URINE 2+ (NEGATIVE); UROBILINOGEN,URINE NORMAL (NORMAL)
[2020-05-15] MEDS ORDERED: K-DUR TAB 20 MEQ PO SCH (09:00)
[2020-05-15 09:26] LABS: APPEARANCE,URINE CLOUDY (CLEAR); BACTERIA,URINE 1+ /HPF (NEGATIVE); COLOR,URINE YELLOW (YELLOW); RBC,URINE 0-2 /HPF (0-3); SQUAMOUS EPITHELIAL CELL,UR NUMEROUS /HPF (NEGATIVE); TRICHOMONAS,URINE MANY /HPF (NEGATIVE)
--- NOTE | 2020-05-15 10:46 | RAD ---
HISTORYelevated WBC, sickle crisisSTUDYCHEST, 1 [id number]/20FINDINGSThe trachea is midline. The cardiac silhouette is stable . The lungs are clear without focal infiltrate or effusion. The bony thorax is unremarkable.IMPRESSIONNo acute cardiopulmonary disease.Electronically signed by: ROYCE RICE (May 15, 2020 10:45:12)
--- NOTE | 2020-05-15 11:02 | PCM.PROG ---
Progress Note Progress Note for Day of Date of Exam: 05/15/20 Subjective Subjective: Patient seen at bedside, no acute events overnight. She states she still has generalized pain. She has been getting Dilaudid every 4 hrs prn and Benadryl. Denies fever or chills. Denies cough. She reports intermittent nausea, no vomiting or diarrhea. She has been tolerating PO diet. Labs: Hgb 6.7 WBC 20.9 K:2.8 Plan: change IVF to NS + KCl, increase PO KCl to 40 meQ BID. Order CXR. Change Benadryl to q6hrs prn. Add Phenergan prn. Will repeat H/H at 12 pm and if remains below 7 then transfuse. Continue pain control. Monitor AM labs. Past Medical Family Social History Past Med/Fam/Surg Hx: No changes since H&P Allergies: Allergies No Known Drug Allergies Allergy (Verified 05/14/20 01:12) Review of Systems ROS: No change since H&P Vital Signs and I&O's Vital Signs: Temperature 98.9 F Pulse Rate [Left] 96 Pulse Rate 100 Respiratory Rate 18 Blood Pressure [Right Arm] 118/66 Blood Pressure [Left Arm] 138/85 Blood Pressure 122/68 O2 Sat by Pulse Oximetry 96 Intake and Output: Intake & Output 05/12/20 05/13/20 05/14/20 05/15/20 23:59 23:59 23:59 23:59 Intake Total 990 / 990 1139 / 1139 Balance 990 / 990 1139 / 1139 Physical Exam Oriented: Normal Eyes: Normal Ear: Normal Nose: Normal Throat: Normal Cardiovascular: Normal Auscultation: Bowel Sounds: Normal Tenderness: Normal Skin: Normal Musculoskeletal: Normal Psychiatric: Normal Mood Description: Calm Affect: Normal Speech Pattern: Clear and Appropriate Laboratory and Diagnostics Result Diagrams: 05/15/20 07:20 05/15/20 07:20 Labs: Laboratory WBC 20.9 X10^3/uL (3.6-10.0) H 05/15/20 07:20 RBC 2.03 X10^6/uL (3.5-5.4) L 05/15/20 07:20 Hgb 6.7 g/dL (12.0-16.0) L* 05/15/20 07:20 Hct 20.1 % (36.0-47.0) L 05/15/20 07:20 MCV 98.7 fL (80.0-100.0) 05/15/20 07:20 MCH 33.2 pg (27.0-34.0) 05/15/20 07:20 MCHC 33.6 g/dL (33.0-35.0) 05/15/20 07:20 RDW 16.0 % (11.6-16.5) 05/15/20 07:20 Plt Count 171 X10^3/uL (150.0-450.0) 05/15/20 07:20 Plt Count Comment Adequate (ADEQUATE) 05/14/20 02:30 MPV 8.0 fL (7.4-11.0) 05/15/20 07:20 Neut % (Auto) 65.0 % (42.0-75.0) 05/15/20 07:20 Lymph % (Auto) 20.5 % (21.0-51.0) L 05/15/20 07:20 [place] % (Auto) 13.1 % (0.0-13.0) H 05/15/20 07:20 Eos % (Auto) 1.1 % (0.9-2.9) 05/15/20 07:20 Baso % (Auto) 0.3 % (0.2-1.0) 05/15/20 07:20 Neut # (Auto) 13.6 x10^3/uL (2.2-4.8) H 05/15/20 07:20 Lymph # (Auto) 4.3 X10^3/uL (1.3-2.9) H 05/15/20 07:20 [place] # (Auto) 2.7 x10^3/uL (0.3-0.8) H 05/15/20 07:20 Eos # (Auto) 0.2 x10^3/uL (0.0-0.2) 05/15/20 07:20 Baso # (Auto) 0.1 X10^3/uL (0.0-0.1) 05/15/20 07:20 Absolute Nucleated RBC 0.6 /100WBC 05/15/20 07:20 Total Counted 100 05/14/20 02:30 Neutrophils % (Manual) 82 % (39-76) H 05/14/20 02:30 Lymphocytes % (Manual) 14 % (13-43) 05/14/20 02:30 Monocytes % (Manual) 3 % (4-9) L 05/14/20 02:30 Eosinophils % (Manual) 1 % (0-6) 05/14/20 02:30 Nucleated RBCs 2 05/14/20 02:30 Plt Morphology Comment Normal (NORMAL) 05/14/20 02:30 RBC Morphology Abnormal (NORMAL) A 05/14/20 02:30 Hypochromasia Slight A 05/14/20 02:30 Poikilocytosis Present 05/14/20 02:30 Sickle Cells Present 05/14/20 02:30 Target Cells Present 05/14/20 02:30 Lexy Cells Present 05/14/20 02:30 Absolute Retic 0.2938 10^6/uL 05/14/20 02:30 Percent Retic 12.38 % (0.8-2.2) H 05/14/20 02:30 Sodium 139 mmol/L (136-145) 05/15/20 07:20 Corrected Sodium TNP 05/15/20 07:20 Potassium 2.8 mmol/L (3.5-5.1) L* 05/15/20 07:20 Chloride 106 mmol/L (98-107) 05/15/20 07:20 Carbon Dioxide 21.4 mmol/L (21-32) 05/15/20 07:20 BUN 2 mg/dL (7-18) L 05/15/20 07:20 Creatinine 0.39 mg/dL (0.55-1.02) L 05/15/20 07:20 Est GFR (MDRD) Af Amer > 60 (>60) 05/15/20 07:20 Est GFR (MDRD) Non-Af > 60 (>60) 05/15/20 07:20 Glucose 89 mg/dL (65-99) 05/15/20 07:20 Calcium 8.1 mg/dL (8.5-10.1) L 05/15/20 07:20 Corrected Calcium 9.5 mg/dL (8.5-10.1) 05/15/20 07:20 Total Bilirubin 1.10 mg/dL (0.2-1.0) H 05/15/20 07:20 AST 16 Units/L (15-37) 05/15/20 07:20 ALT < 6 Units/L (12-78) L 05/15/20 07:20 Alkaline Phosphatase 74 Units/L (46-116) 05/15/20 07:20 Total Protein 6.3 g/dL (6.4-8.2) L 05/15/20 07:20 Albumin 2.3 g/dL (3.4-5.0) L 05/15/20 07:20 Globulin 4.0 g/dL (2.5-4.5) 05/15/20 07:20 Albumin/Globulin Ratio 0.6 Ratio (1.1-2.1) L 05/15/20 07:20 Specimen Type Clean catch urine 05/15/20 07:50 Urine Color Yellow (YELLOW) 05/15/20 07:50 Urine Appearance Cloudy (CLEAR) 05/15/20 07:50 Urine pH 8.0 (5.0 - 8.0) 05/15/20 07:50 Ur Specific [place] 1.015 (1.000-1.030) 05/15/20 07:50 Urine Protein 2+ (NEGATIVE) 05/15/20 07:50 Urine Glucose (UA) Negative (NEGATIVE) 05/15/20 07:50 Urine Ketones Negative (NEGATIVE) 05/15/20 07:50 Urine Occult Blood 2+ (NEGATIVE) 05/15/20 07:50 Urine Nitrite Negative (NEGATIVE) 05/15/20 07:50 Urine Bilirubin Negative (NEGATIVE) 05/15/20 07:50 Urine Urobilinogen Normal (NORMAL) 05/15/20 07:50 Ur Leukocyte Esterase 3+ (NEGATIVE) 05/15/20 07:50 Urine RBC 0-2 /HPF (0-3) 05/15/20 07:50 Urine WBC 10-20 /HPF (0-5) A 05/15/20 07:50 Ur Squamous Epith Cells Numerous /HPF (NEGATIVE) 05/15/20 07:50 Urine Bacteria 1+ /HPF (NEGATIVE) 05/15/20 07:50 Urine Trichomonas Many /HPF (NEGATIVE) 05/15/20 07:50 Ur Culture Indicated? No/not indicated 05/15/20 07:50 SARS-CoV-2 (PCR) Negative (NEGATIVE) 05/14/20 06:01 Influenza Type A (PCR) Negative (NEGATIVE) 05/14/20 06:01 Influenza Type B (PCR) Negative (NEGATIVE) 05/14/20 06:01 RSV (PCR) Negative (NEGATIVE) 05/14/20 06:01 Plan (1) Sickle cell crisis: Status: Acute (2) Back pain: Status: Acute Qualifiers: Back pain laterality: bilateral Back pain location: low back pain Chronicity: acute Sciatica laterality: bilateral sciatica Sciatica presence: with sciatica Qualified Code(s): M54.42 - Lumbago with sciatica, left side; M54.41 - Lumbago with sciatica, right side (3) Acute extremity pain: Status: Acute (4) Anemia: Status: Chronic Qualifiers: Anemia type: unspecified type Qualified Code(s): D64.9 - Anemia, unspecified
[2020-05-15 12:08] LABS: HEMATOCRIT 19.3 % (36.0-47.0); HEMOGLOBIN 6.7 g/dL (12.0-16.0)
[2020-05-15] MEDS ORDERED: PHENERGAN TAB 25 MG PO ONE ×2 (12:30→21:05)
[2020-05-15] MEDS: K-DUR TAB 20 MEQ PO SCH ×2 (12:56→21:20)
[2020-05-15] MEDS: PHENERGAN TAB 25 MG PO PRN ×2 (12:57→21:20)
[2020-05-15] MEDS ORDERED: NS + KCL 20 MEQ/L 1,000 ML IV ONE (15:19)
[2020-05-15] MEDS: NS + KCL 20 MEQ/L 1,000 ML IV SCH ×3 (15:24→23:40)
[2020-05-15] MEDS: NEURONTIN CAP 300 MG PO SCH ×3 (16:56→21:20)
[2020-05-16] MEDS ORDERED: DILAUDID INJ ONE ×6 (01:17→22:18)
[2020-05-16] MEDS: DILAUDID INJ IVP PRN ×7 (01:26→20:15)
[2020-05-16] MEDS: NS + KCL 20 MEQ/L 1,000 ML IV SCH ×3 (01:31→17:38)
[2020-05-16] MEDS ORDERED: BENADRYL INJ 50 MG VIAL ONE ×2 (05:18→13:37)
[2020-05-16] MEDS ORDERED: PHENERGAN TAB 25 MG PO ONE (05:19)
[2020-05-16] MEDS: NEURONTIN CAP 300 MG PO SCH ×3 (05:25→22:00)
[2020-05-16] MEDS: PHENERGAN TAB 25 MG PO PRN (05:25)
[2020-05-16] MEDS: BENADRYL INJ 50 MG VIAL IV PRN ×3 (05:25→13:47)
[2020-05-16 06:38] LABS: BASOPHILS % (AUTO) 0.2 % (0.2-1.0); EOSINOPHILS # (AUTO) 0.3 x10^3/uL (0.0-0.2); EOSINOPHILS % (AUTO) 1.2 % (0.9-2.9); LYMPHOCYTES # (AUTO) 3.9 X10^3/uL (1.3-2.9); LYMPHOCYTES % (AUTO) 18.6 % (21.0-51.0); MEAN CORPUSCULAR HEMOGLOBIN 34.3 pg (27.0-34.0); MEAN CORPUSCULAR HGB CONC 35.2 g/dL (33.0-35.0); MEAN CORPUSCULAR VOLUME 97.4 fL (80.0-100.0); MEAN PLATELET VOLUME 7.8 fL (7.4-11.0); MONOCYTES # (AUTO) 2.8 x10^3/uL (0.3-0.8); MONOCYTES % (AUTO) 13.5 % (0.0-13.0); NEUTROPHILS # (AUTO) 13.8 x10^3/uL (2.2-4.8); NEUTROPHILS % (AUTO) 66.5 % (42.0-75.0); PLATELET COUNT 166 X10^3/uL (150.0-450.0); RED BLOOD COUNT 1.96 X10^6/uL (3.5-5.4); WHITE BLOOD COUNT 20.8 X10^3/uL (3.6-10.0)
[2020-05-16 07:14] LABS: BLOOD UREA NITROGEN 2 mg/dL (7-18); CALCIUM 8.1 mg/dL (8.5-10.1); CARBON DIOXIDE 20.9 mmol/L (21-32); CHLORIDE 107 mmol/L (98-107); CREATININE 0.38 mg/dL (0.55-1.02); SODIUM 139 mmol/L (136-145); eGFR NON BLACK RACES > 60 (>60)
[2020-05-16] MEDS ORDERED: NS + KCL 20 MEQ/L 1,000 ML IV ONE ×2 (07:26→16:27)
[2020-05-16 07:34] LABS: HEMOGLOBIN 6.7 g/dL (12.0-16.0)
[2020-05-16 07:35] LABS: HEMATOCRIT 19.1 % (36.0-47.0)
[2020-05-16] MEDS: FOLIC ACID TAB 1 MG PO SCH ×2 (09:20→21:00)
[2020-05-16] MEDS: HYDREA PO SCH ×2 (09:21→21:00)
[2020-05-16] MEDS: K-DUR TAB 20 MEQ PO SCH ×2 (09:22→21:00)
[2020-05-16] MEDS ORDERED: K-DUR TAB 20 MEQ PO ONE (18:56)
[2020-05-17] MEDS ORDERED: DILAUDID INJ ONE ×5 (01:51→18:40)
[2020-05-17] MEDS ORDERED: NS + KCL 20 MEQ/L 1,000 ML IV ONE ×2 (01:51→13:12)
[2020-05-17] MEDS: NS + KCL 20 MEQ/L 1,000 ML IV SCH ×4 (01:55→17:24)
[2020-05-17] MEDS: BENADRYL INJ 50 MG VIAL IV PRN ×4 (02:17→22:39)
[2020-05-17] MEDS: DILAUDID INJ IVP PRN ×6 (02:20→22:58)
[2020-05-17] MEDS ORDERED: NS 250 ML IV 250 ML IV ONE (03:14)
[2020-05-17] MEDS: NEURONTIN CAP 300 MG PO SCH ×3 (06:18→22:37)
[2020-05-17] MEDS ORDERED: BENADRYL INJ 50 MG VIAL ONE ×2 (06:22→14:30)
[2020-05-17 07:52] LABS: BASOPHILS # (AUTO) 0.1 X10^3/uL (0.0-0.1); BASOPHILS % (AUTO) 0.4 % (0.2-1.0); EOSINOPHILS # (AUTO) 0.3 x10^3/uL (0.0-0.2); EOSINOPHILS % (AUTO) 1.6 % (0.9-2.9); HEMATOCRIT 21.8 % (36.0-47.0); HEMOGLOBIN 7.4 g/dL (12.0-16.0); LYMPHOCYTES # (AUTO) 3.5 X10^3/uL (1.3-2.9); LYMPHOCYTES % (AUTO) 17.2 % (21.0-51.0); MEAN CORPUSCULAR HEMOGLOBIN 32.5 pg (27.0-34.0); MEAN CORPUSCULAR VOLUME 95.6 fL (80.0-100.0); MONOCYTES # (AUTO) 2.5 x10^3/uL (0.3-0.8); MONOCYTES % (AUTO) 12.4 % (0.0-13.0); NEUTROPHILS % (AUTO) 68.4 % (42.0-75.0); PLATELET COUNT 170 X10^3/uL (150.0-450.0); RED BLOOD COUNT 2.28 X10^6/uL (3.5-5.4); RED CELL DISTRIBUTION WIDTH 20.5 % (11.6-16.5); WHITE BLOOD COUNT 20.4 X10^3/uL (3.6-10.0)
[2020-05-17 08:00] LABS: ALANINE AMINOTRANSFERASE 6 Units/L (12-78); ALBUMIN 2.4 g/dL (3.4-5.0); ALKALINE PHOSPHATASE 67 Units/L (46-116); ASPARTATE AMINO TRANSFERASE 19 Units/L (15-37); BLOOD UREA NITROGEN 3 mg/dL (7-18); CALCIUM 8.3 mg/dL (8.5-10.1); CARBON DIOXIDE 23.2 mmol/L (21-32); CHLORIDE 107 mmol/L (98-107); COR CA(FOR HYPOALB) 9.6 mg/dL (8.5-10.1); CREATININE 0.43 mg/dL (0.55-1.02); SODIUM 138 mmol/L (136-145); TOTAL PROTEIN 6.5 g/dL (6.4-8.2); eGFR NON BLACK RACES > 60 (>60)
[2020-05-17] MEDS ORDERED: K-DUR TAB 20 MEQ PO ONE (08:02)
[2020-05-17 08:08] LABS: ANISOCYTOSIS 1+; PLATELET MORPHOLOGY COMMENT NORMAL (NORMAL)
[2020-05-17] MEDS: HYDREA PO SCH ×2 (08:08→21:00)
[2020-05-17] MEDS: K-DUR TAB 20 MEQ PO SCH ×2 (08:08→21:00)
[2020-05-17] MEDS: FOLIC ACID TAB 1 MG PO SCH ×2 (08:08→21:00)
[2020-05-17 08:09] LABS: POIKILOCYTOSIS 1+
[2020-05-17 08:10] LABS: SICKLE CELLS PRESENT
[2020-05-17] MEDS ORDERED: LOPRESSOR TAB 25 MG ONE (08:19)
[2020-05-17] MEDS ORDERED: NEURONTIN CAP 100 MG ONE ×2 (13:34→18:40)
[2020-05-18] MEDS: NS + KCL 20 MEQ/L 1,000 ML IV SCH ×5 (00:30→21:50)
[2020-05-18] MEDS: DILAUDID INJ IVP PRN ×5 (02:40→21:50)
[2020-05-18] MEDS: NEURONTIN CAP 300 MG PO SCH (05:43)
[2020-05-18] MEDS: BENADRYL INJ 50 MG VIAL IV PRN ×3 (06:15→21:50)
[2020-05-18 06:24] LABS: BASOPHILS # (AUTO) 0.1 X10^3/uL (0.0-0.1); BASOPHILS % (AUTO) 0.4 % (0.2-1.0); EOSINOPHILS # (AUTO) 0.4 x10^3/uL (0.0-0.2); EOSINOPHILS % (AUTO) 1.8 % (0.9-2.9); HEMATOCRIT 23.1 % (36.0-47.0); LYMPHOCYTES # (AUTO) 3.4 X10^3/uL (1.3-2.9); LYMPHOCYTES % (AUTO) 16.5 % (21.0-51.0); MEAN CORPUSCULAR HEMOGLOBIN 33.2 pg (27.0-34.0); MEAN CORPUSCULAR HGB CONC 34.4 g/dL (33.0-35.0); MEAN CORPUSCULAR VOLUME 96.5 fL (80.0-100.0); MEAN PLATELET VOLUME 8.2 fL (7.4-11.0); MONOCYTES # (AUTO) 2.5 x10^3/uL (0.3-0.8); NEUTROPHILS # (AUTO) 14.2 x10^3/uL (2.2-4.8); NEUTROPHILS % (AUTO) 69.3 % (42.0-75.0); PLATELET COUNT 176 X10^3/uL (150.0-450.0); RED BLOOD COUNT 2.39 X10^6/uL (3.5-5.4); RED CELL DISTRIBUTION WIDTH 21.4 % (11.6-16.5); WHITE BLOOD COUNT 20.6 X10^3/uL (3.6-10.0)
[2020-05-18 06:58] LABS: ALANINE AMINOTRANSFERASE 7 Units/L (12-78); ALBUMIN 2.5 g/dL (3.4-5.0); ALKALINE PHOSPHATASE 72 Units/L (46-116); ASPARTATE AMINO TRANSFERASE 26 Units/L (15-37); BLOOD UREA NITROGEN 2 mg/dL (7-18); CALCIUM 8.3 mg/dL (8.5-10.1); CARBON DIOXIDE 21.6 mmol/L (21-32); CHLORIDE 106 mmol/L (98-107); COR CA(FOR HYPOALB) 9.5 mg/dL (8.5-10.1); SODIUM 137 mmol/L (136-145); TOTAL PROTEIN 6.8 g/dL (6.4-8.2); eGFR NON BLACK RACES > 60 (>60)
[2020-05-18 07:58] LABS: ANISOCYTOSIS 1+; HYPOCHROMASIA 1+; PLATELET MORPHOLOGY COMMENT NORMAL (NORMAL); POIKILOCYTOSIS 1+
[2020-05-18 08:02] LABS: SICKLE CELLS 1+
[2020-05-18] MEDS: FOLIC ACID TAB 1 MG PO SCH ×2 (09:39→22:30)
[2020-05-18] MEDS: HYDREA PO SCH ×2 (09:40→22:30)
[2020-05-18] MEDS: K-DUR TAB 20 MEQ PO SCH ×2 (09:50→22:30)
[2020-05-18] MEDS: NEURONTIN CAP 400 MG PO SCH ×3 (09:55→22:30)
[2020-05-18] MEDS: NORCO 7.5/325 MG TAB PO PRN ×2 (13:00→20:45)
[2020-05-18 13:39] LABS: RETICULOCYTE % 16.18 % (0.8-2.2)
[2020-05-19] MEDS: NS + KCL 20 MEQ/L 1,000 ML IV SCH ×5 (00:48→23:16)
[2020-05-19] MEDS: DILAUDID INJ IVP PRN ×5 (03:51→22:06)
[2020-05-19] MEDS: BENADRYL INJ 50 MG VIAL IV PRN ×3 (03:51→17:55)
[2020-05-19] MEDS: NEURONTIN CAP 400 MG PO SCH ×3 (05:36→22:30)
[2020-05-19 06:06] LABS: BASOPHILS # (AUTO) 0.1 X10^3/uL (0.0-0.1); BASOPHILS % (AUTO) 0.5 % (0.2-1.0); EOSINOPHILS # (AUTO) 0.3 x10^3/uL (0.0-0.2); EOSINOPHILS % (AUTO) 1.5 % (0.9-2.9); HEMOGLOBIN 8.5 g/dL (12.0-16.0); LYMPHOCYTES # (AUTO) 2.9 X10^3/uL (1.3-2.9); LYMPHOCYTES % (AUTO) 14.6 % (21.0-51.0); MEAN CORPUSCULAR HEMOGLOBIN 33.8 pg (27.0-34.0); MEAN CORPUSCULAR HGB CONC 35.3 g/dL (33.0-35.0); MEAN CORPUSCULAR VOLUME 95.7 fL (80.0-100.0); MEAN PLATELET VOLUME 8.3 fL (7.4-11.0); MONOCYTES # (AUTO) 2.6 x10^3/uL (0.3-0.8); MONOCYTES % (AUTO) 12.9 % (0.0-13.0); NEUTROPHILS % (AUTO) 70.5 % (42.0-75.0); PLATELET COUNT 190 X10^3/uL (150.0-450.0); RED CELL DISTRIBUTION WIDTH 22.2 % (11.6-16.5); RETICULOCYTE % 18.38 % (0.8-2.2); WHITE BLOOD COUNT 19.9 X10^3/uL (3.6-10.0)
[2020-05-19 06:17] LABS: ALANINE AMINOTRANSFERASE 9 Units/L (12-78); ALBUMIN 2.7 g/dL (3.4-5.0); ALKALINE PHOSPHATASE 80 Units/L (46-116); ASPARTATE AMINO TRANSFERASE 22 Units/L (15-37); BLOOD UREA NITROGEN 3 mg/dL (7-18); CALCIUM 8.3 mg/dL (8.5-10.1); CARBON DIOXIDE 22.9 mmol/L (21-32); CHLORIDE 105 mmol/L (98-107); COR CA(FOR HYPOALB) 9.3 mg/dL (8.5-10.1); CREATININE 0.46 mg/dL (0.55-1.02); SODIUM 138 mmol/L (136-145); TOTAL PROTEIN 7.3 g/dL (6.4-8.2); eGFR NON BLACK RACES > 60 (>60)
[2020-05-19 06:34] LABS: BAND NEUTROPHILS % 1 % (0-10)
[2020-05-19 06:35] LABS: ANISOCYTOSIS 2+; PLATELET MORPHOLOGY COMMENT NORMAL (NORMAL); POIKILOCYTOSIS 1+
[2020-05-19 06:36] LABS: HYPOCHROMASIA SLIGHT; SICKLE CELLS PRESENT
[2020-05-19] MEDS: FOLIC ACID TAB 1 MG PO SCH ×2 (09:02→22:30)
[2020-05-19] MEDS: K-DUR TAB 20 MEQ PO SCH ×2 (09:03→22:30)
[2020-05-19] MEDS: HYDREA PO SCH ×2 (09:08→22:30)
[2020-05-19] MEDS: NORCO 7.5/325 MG TAB PO PRN ×2 (09:09→12:24)
--- NOTE | 2020-05-19 18:30 | PCM.PROG ---
Progress Note - Subjective Subjective: Patient seen at bedside, no acute events overnight. She states she still has generalized pain. Retic at 18.3, hgb 8.5.She has been getting Dilaudid every 4 hrs prn and Benadryl. Denies fever or chills. Denies cough. She reports intermittent nausea, no vomiting or diarrhea. She has been tolerating PO diet. - Past Medical Family Social History Past Med/Fam/Surg Hx: No changes since H&P Allergies: Allergies No Known Drug Allergies Allergy (Verified 05/14/20 01:12) - Review of Systems ROS: No change since H&P - Vital Signs and I&O's Vital Signs: Temperature 98.0 F Pulse Rate [Right Brachial] 74 Pulse Rate [Left] 73 Pulse Rate 100 Respiratory Rate 20 Blood Pressure [Right Arm] 122/59 Blood Pressure [Left Arm] 108/54 Blood Pressure 122/68 O2 Sat by Pulse Oximetry 95 Intake and Output: Intake & Output 05/17/20 05/18/20 05/19/20 05/20/20 11:59 11:59 11:59 11:59 Intake Total 4017 / 4017 3614 / 3614 3967 / 3967 600 / 600 Output Total Balance 4017 / 4017 3614 / 3614 3966 / 3966 600 / 600 - Physical Exam Oriented: Normal Eyes: Normal Ear: Normal Nose: Normal Throat: Normal Respiratory: Normal Cardiovascular: Normal Auscultation: Bowel Sounds: Normal Tenderness: Normal Skin: Normal Musculoskeletal: Right, Left, Shoulder, Back:Lumbar Psychiatric: Anxiety Affect: Anxious, Normal Speech Pattern: Clear, Appropriate - Laboratory and Diagnostics Result Diagrams: 05/19/20 05:26 05/19/20 05:26 Labs: Laboratory WBC 19.9 X10^3/uL (3.6-10.0) H 05/19/20 05:26 RBC 2.50 X10^6/uL (3.5-5.4) L 05/19/20 05:26 Hgb 8.5 g/dL (12.0-16.0) L 05/19/20 05:26 Hct 24.0 % (36.0-47.0) L 05/19/20 05:26 MCV 95.7 fL (80.0-100.0) 05/19/20 05:26 MCH 33.8 pg (27.0-34.0) 05/19/20 05:26 MCHC 35.3 g/dL (33.0-35.0) H 05/19/20 05:26 RDW 22.2 % (11.6-16.5) H 05/19/20 05:26 Plt Count 190 X10^3/uL (150.0-450.0) 05/19/20 05:26 Plt Count Comment Adequate (ADEQUATE) 05/19/20 05:26 MPV 8.3 fL (7.4-11.0) 05/19/20 05:26 Neut % (Auto) 70.5 % (42.0-75.0) 05/19/20 05:26 Lymph % (Auto) 14.6 % (21.0-51.0) L 05/19/20 05:26 [place] % (Auto) 12.9 % (0.0-13.0) 05/19/20 05:26 Eos % (Auto) 1.5 % (0.9-2.9) 05/19/20 05:26 Baso % (Auto) 0.5 % (0.2-1.0) 05/19/20 05:26 Neut # (Auto) 14.0 x10^3/uL (2.2-4.8) H 05/19/20 05:26 Lymph # (Auto) 2.9 X10^3/uL (1.3-2.9) 05/19/20 05:26 [place] # (Auto) 2.6 x10^3/uL (0.3-0.8) H 05/19/20 05:26 Eos # (Auto) 0.3 x10^3/uL (0.0-0.2) H 05/19/20 05:26 Baso # (Auto) 0.1 X10^3/uL (0.0-0.1) 05/19/20 05:26 Absolute Nucleated RBC 2.5 /100WBC 05/19/20 05:26 Total Counted 100 05/19/20 05:26 Neutrophils % (Manual) 61 % (39-76) 05/19/20 05:26 Band Neutrophils % 1 % (0-10) 05/19/20 05:26 Lymphocytes % (Manual) 21 % (13-43) 05/19/20 05:26 Monocytes % (Manual) 14 % (4-9) H 05/19/20 05:26 Eosinophils % (Manual) 3 % (0-6) 05/19/20 05:26 Nucleated RBCs 3 05/19/20 05:26 Plt Morphology Comment Normal (NORMAL) 05/19/20 05:26 RBC Morphology Abnormal (NORMAL) A 05/19/20 05:26 Hypochromasia Slight A 05/19/20 05:26 Poikilocytosis 1+ A 05/19/20 05:26 Anisocytosis 2+ A 05/19/20 05:26 Sickle Cells Present 05/19/20 05:26 Target Cells Present 05/14/20 02:30 Lexy Cells Present 05/14/20 02:30 Absolute Retic 0.4602 10^6/uL 05/19/20 05:26 Percent Retic 18.38 % (0.8-2.2) H 05/19/20 05:26 Sodium 138 mmol/L (136-145) 05/19/20 05:26 Corrected Sodium TNP 05/19/20 05:26 Potassium 4.0 mmol/L (3.5-5.1) 05/19/20 05:26 Chloride 105 mmol/L (98-107) 05/19/20 05:26 Carbon Dioxide 22.9 mmol/L (21-32) 05/19/20 05:26 BUN 3 mg/dL (7-18) L 05/19/20 05:26 Creatinine 0.46 mg/dL (0.55-1.02) L 05/19/20 05:26 Est GFR (MDRD) Af Amer > 60 (>60) 05/19/20 05:26 Est GFR (MDRD) Non-Af > 60 (>60) 05/19/20 05:26 Glucose 86 mg/dL (65-99) 05/19/20 05:26 Calcium 8.3 mg/dL (8.5-10.1) L 05/19/20 05:26 Corrected Calcium 9.3 mg/dL (8.5-10.1) 05/19/20 05:26 Total Bilirubin 1.40 mg/dL (0.2-1.0) H 05/19/20 05:26 AST 22 Units/L (15-37) 05/19/20 05:26 ALT 9 Units/L (12-78) L 05/19/20 05:26 Alkaline Phosphatase 80 Units/L (46-116) 05/19/20 05:26 Total Protein 7.3 g/dL (6.4-8.2) 05/19/20 05:26 Albumin 2.7 g/dL (3.4-5.0) L 05/19/20 05:26 Globulin 4.6 g/dL (2.5-4.5) H 05/19/20 05:26 Albumin/Globulin Ratio 0.6 Ratio (1.1-2.1) L 05/19/20 05:26 Specimen Type Clean catch urine 05/15/20 07:50 Urine Color Yellow (YELLOW) 05/15/20 07:50 Urine Appearance Cloudy (CLEAR) 05/15/20 07:50 Urine pH 8.0 (5.0 - 8.0) 05/15/20 07:50 Ur Specific [place] 1.015 (1.000-1.030) 05/15/20 07:50 Urine Protein 2+ (NEGATIVE) 05/15/20 07:50 Urine Glucose (UA) Negative (NEGATIVE) 05/15/20 07:50 Urine Ketones Negative (NEGATIVE) 05/15/20 07:50 Urine Occult Blood 2+ (NEGATIVE) 05/15/20 07:50 Urine Nitrite Negative (NEGATIVE) 05/15/20 07:50 Urine Bilirubin Negative (NEGATIVE) 05/15/20 07:50 Urine Urobilinogen Normal (NORMAL) 05/15/20 07:50 Ur Leukocyte Esterase 3+ (NEGATIVE) 05/15/20 07:50 Urine RBC 0-2 /HPF (0-3) 05/15/20 07:50 Urine WBC 10-20 /HPF (0-5) A 05/15/20 07:50 Ur Squamous Epith Cells Numerous /HPF (NEGATIVE) 05/15/20 07:50 Urine Bacteria 1+ /HPF (NEGATIVE) 05/15/20 07:50 Urine Trichomonas Many /HPF (NEGATIVE) 05/15/20 07:50 Ur Culture Indicated? No/not indicated 05/15/20 07:50 SARS-CoV-2 (PCR) Negative (NEGATIVE) 05/14/20 06:01 Influenza Type A (PCR) Negative (NEGATIVE) 05/14/20 06:01 Influenza Type B (PCR) Negative (NEGATIVE) 05/14/20 06:01 RSV (PCR) Negative (NEGATIVE) 05/14/20 06:01 Blood Type O POSITIVE 05/15/20 11:39 Antibody Screen Negative 05/15/20 11:39 Antibody Identification Anti-C Anti-S Anti-V 05/15/20 11:39 Antibody Identification Anti-C Anti-S Anti-V 05/15/20 11:39 Antibody Identification Anti-C Anti-S Anti-V 05/15/20 11:39 Crossmatch See Detail 05/15/20 11:39 - Plan (1) Sickle cell crisis Status: Acute Plan: IV HYDRATION, SUPPLEMENTAL O2. S/P TRANSFUSION PRBC, PAIN CONTROL. REPEAT AM LABS, RETIC COUNT (2) Anemia Status: Chronic Qualifiers:
[2020-05-20] MEDS: DILAUDID INJ IVP PRN ×5 (02:00→14:20)
[2020-05-20] MEDS: BENADRYL INJ 50 MG VIAL IV PRN ×3 (02:10→10:27)
[2020-05-20] MEDS: NS + KCL 20 MEQ/L 1,000 ML IV SCH ×2 (02:30→14:50)
[2020-05-20] MEDS: NORCO 7.5/325 MG TAB PO PRN (05:05)
[2020-05-20] MEDS: NEURONTIN CAP 400 MG PO SCH (05:46)
[2020-05-20 06:22] LABS: BASOPHILS # (AUTO) 0.1 X10^3/uL (0.0-0.1); BASOPHILS % (AUTO) 0.4 % (0.2-1.0); EOSINOPHILS # (AUTO) 0.3 x10^3/uL (0.0-0.2); EOSINOPHILS % (AUTO) 1.5 % (0.9-2.9); HEMATOCRIT 21.5 % (36.0-47.0); HEMOGLOBIN 7.5 g/dL (12.0-16.0); LYMPHOCYTES # (AUTO) 2.3 X10^3/uL (1.3-2.9); LYMPHOCYTES % (AUTO) 12.2 % (21.0-51.0); MEAN CORPUSCULAR HEMOGLOBIN 33.4 pg (27.0-34.0); MEAN CORPUSCULAR HGB CONC 34.8 g/dL (33.0-35.0); MEAN CORPUSCULAR VOLUME 95.9 fL (80.0-100.0); MEAN PLATELET VOLUME 8.1 fL (7.4-11.0); MONOCYTES # (AUTO) 2.6 x10^3/uL (0.3-0.8); MONOCYTES % (AUTO) 13.9 % (0.0-13.0); NEUTROPHILS # (AUTO) 13.4 x10^3/uL (2.2-4.8); PLATELET COUNT 189 X10^3/uL (150.0-450.0); RED BLOOD COUNT 2.24 X10^6/uL (3.5-5.4); RED CELL DISTRIBUTION WIDTH 20.9 % (11.6-16.5); WHITE BLOOD COUNT 18.6 X10^3/uL (3.6-10.0)
[2020-05-20] MEDS ORDERED: DILAUDID INJ ONE ×2 (06:24→09:24)
[2020-05-20 06:45] LABS: ALANINE AMINOTRANSFERASE 11 Units/L (12-78); ALBUMIN 2.5 g/dL (3.4-5.0); ALKALINE PHOSPHATASE 82 Units/L (46-116); ASPARTATE AMINO TRANSFERASE 24 Units/L (15-37); BLOOD UREA NITROGEN 3 mg/dL (7-18); CALCIUM 8.3 mg/dL (8.5-10.1); CARBON DIOXIDE 24.3 mmol/L (21-32); CHLORIDE 106 mmol/L (98-107); COR CA(FOR HYPOALB) 9.5 mg/dL (8.5-10.1); CREATININE 0.45 mg/dL (0.55-1.02); SODIUM 138 mmol/L (136-145); TOTAL PROTEIN 6.7 g/dL (6.4-8.2); eGFR NON BLACK RACES > 60 (>60)
[2020-05-20 07:35] LABS: ANISOCYTOSIS 1+; PLATELET MORPHOLOGY COMMENT NORMAL (NORMAL)
[2020-05-20 07:36] LABS: POIKILOCYTOSIS 1+; SICKLE CELLS PRESENT
[2020-05-20] MEDS ORDERED: TORADOL 30 MG VIAL IVP ONE (07:40)
[2020-05-20 08:21] LABS: RETICULOCYTE % 13.5 % (0.8-2.2)
[2020-05-20] MEDS: HYDREA PO SCH (10:00)
[2020-05-20] MEDS: FOLIC ACID TAB 1 MG PO SCH (10:00)
[2020-05-20] MEDS: K-DUR TAB 20 MEQ PO SCH (10:00)
[2020-05-20 14:45] VITALS: BP 110/53
== END 2020-05-20 14:50 | disposition home or self-care (01) | DRG 812 ==
LOC: ER 01:07 → MED/SURG 07:38 → OBS 05-17 21:52
PROVIDERS: ADMIT Internal Medicine; ATTEND Internal Medicine
DX: M79.609 Pain in unspecified limb; D57.00 Hb-SS disease with crisis, unspecified; M54.42 Lumbago with sciatica, left side; M54.41 Lumbago with sciatica, right side; Z20.822 Contact with and (suspected) exposure to COVID-19; D64.9 Anemia, unspecified

== ENCOUNTER 2021-01-30 21:40 | Inpatient (IN) ==
[2021-01-30 22:00] VITALS: BMI 23.9
--- NOTE | 2021-01-30 23:10 | DR.CP ---
HPI Time Seen Time Seen by Provider: 01/30/21 23:08 PCP Primary Care Physician: IN [place] Complaint Chief Complaint Doctor Comments: c.o chest and back pain. percocet at home not working. requesting dilaudid. pcp dr das in [place]. Chief Complaint:: PT AMBULATORY IN ED WITH C/O BEING IN SICKLE CELL CRISIS. PT A LSO C/O CHEST PAIN FROM THE SICKLE CELL. STATES "I NOW THEY GONNA KEEP ME". COVID-19 Coronavirus risk:travel/contact w/high risk person: No Has patient experienced Coronavirus symptoms: No Reviewed Nurses Notes Review: Yes Source History Provided: Patient Mode of Arrival Mode of Arrival: Ambulatory Timing Onset of Chief Complaint: 01/30/21 PMH PMH Past Medical History: Yes Past Medical History: Anemia Past Medical History Comment: SICKLE CELL Past Surgical History: Yes Surgical History: , Cholecystectomy and BUSINESS CONSULT Surgery Family History History of Family Medical Conditions: Yes Family Medical History: Diabetes Mellitus and Cancer Social History Does patient currently use any type of tobacco product: No Have you used tobacco products in the last 12 months: No Type of Tobacco Use: None Does any household member use tobacco: No Alcohol Use: None Do you use any recreational Drugs:: No Lives With: Family Lives Where: Home Travel Risk Coronavirus risk:travel/contact w/high risk person: No Has patient experienced Coronavirus symptoms: No Infectious screening In the last 2 months have you had wt loss of >10#?: NO Have you had fever, night sweats or hemotysis?: No Have you traveled outside the country in the last 6 months?: No Isolation: Standard ROS Review of Systems Constitutional: See HPI Respiratoy: See HPI Cardiovascular: See HPI Gastrointestinal/Abdominal: No Symptoms Reported Musculoskeletal: See HPI All Other Systems: Reviewed and Negative PE Vitals Vitals: Temperature 97.9 F Pulse Rate 98 Respiratory Rate 18 Blood Pressure [Right Arm] 110/53 Blood Pressure [Left Arm] 108/54 Blood Pressure [Right Arm] 146/63 Blood Pressure [Left Arm] 136/71 Blood Pressure [Right Arm] 108/61 Blood Pressure [Right Arm] 107/51 Blood Pressure [Left Arm] 113/59 Blood Pressure 106/61 O2 Sat by Pulse Oximetry 99 General General Appearance: Alert, Anxious and In Distress Head Head Exam: Normal Inspection Eyes Eye exam: Normal Appearance and PERRL Respiratory Respiratory Exam: Normal Lung Sounds Bilat; negative Accessory Muscle Use Cardiovascular Cardiovascular Exam: Regular Rate and Normal Heart Sounds Abdominal Exam Abdominal Exam: Normal Inspection and Normal Bowel Sounds Back Back Exam: Normal Inspection and Full ROM Skin Skin Exam: Warm, Dry and Intact COURSE Treatment Treatment: dilaudid w IVF and potassium in ED. ROR Labs Reviewed Laboratory Results Reviewed?: Yes (elev WBC w hgb 8.2. k 2.5) Result Diagrams: 01/30/21 22:52 01/30/21 22:52 Laboratory: WBC 19.8 X10^3/uL (3.6-10.0) H 01/30/21 22:52 RBC 2.48 X10^6/uL (3.5-5.4) L 01/30/21 22:52 Hgb 8.2 g/dL (12.0-16.0) L 01/30/21 22:52 Hct 23.1 % (36.0-47.0) L 01/30/21 22:52 MCV 93.2 fL (80.0-100.0) 01/30/21 22:52 MCH 33.1 pg (27.0-34.0) 01/30/21 22:52 MCHC 35.5 g/dL (33.0-35.0) H 01/30/21 22:52 RDW 17.2 % (11.6-16.5) H 01/30/21 22:52 Plt Count 215 X10^3/uL (150.0-450.0) 01/30/21 22:52 MPV 6.5 fL (7.4-11.0) L 01/30/21 22:52 Neut % (Auto) 67.2 % (42.0-75.0) 01/30/21 22:52 Lymph % (Auto) 22.3 % (21.0-51.0) 01/30/21 22:52 [place] % (Auto) 9.4 % (0.0-13.0) 01/30/21 22:52 Eos % (Auto) 0.7 % (0.9-2.9) L 01/30/21 22:52 Baso % (Auto) 0.4 % (0.2-1.0) 01/30/21 22:52 Neut # (Auto) 13.3 x10^3/uL (2.2-4.8) H 01/30/21 22:52 Lymph # (Auto) 4.4 X10^3/uL (1.3-2.9) H 01/30/21 22:52 [place] # (Auto) 1.9 x10^3/uL (0.3-0.8) H 01/30/21 22:52 Eos # (Auto) 0.1 x10^3/uL (0.0-0.2) 01/30/21 22:52 Baso # (Auto) 0.1 X10^3/uL (0.0-0.1) 01/30/21 22:52 Absolute Nucleated RBC 0.3 /100WBC 01/30/21 22:52 Sodium 139 mmol/L (136-145) 01/30/21 22:52 Corrected Sodium 140 mmol/L (136-145) 01/30/21 22:52 Potassium 2.5 mmol/L (3.5-5.1) L* 01/30/21 22:52 Chloride 104 mmol/L (98-107) 01/30/21 22:52 Carbon Dioxide 23.9 mmol/L (21-32) 01/30/21 22:52 BUN 4 mg/dL (7-18) L 01/30/21 22:52 Creatinine 0.58 mg/dL (0.55-1.02) 01/30/21 22:52 Est GFR (MDRD) Af Amer > 60 (>60) 01/30/21 22:52 Est GFR (MDRD) Non-Af > 60 (>60) 01/30/21 22:52 Glucose 123 mg/dL (65-99) H 01/30/21 22:52 Calcium 8.8 mg/dL (8.5-10.1) 01/30/21 22:52 Corrected Calcium 9.4 mg/dL (8.5-10.1) 01/30/21 22:52 Total Bilirubin 1.00 mg/dL (0.2-1.0) 01/30/21 22:52 AST 17 Units/L (15-37) 01/30/21 22:52 ALT 11 Units/L (12-78) L 01/30/21 22:52 Alkaline Phosphatase 43 Units/L (46-116) L 01/30/21 22:52 Total Protein 7.5 g/dL (6.4-8.2) 01/30/21 22:52 Albumin 3.3 g/dL (3.4-5.0) L 01/30/21 22:52 Globulin 4.2 g/dL (2.5-4.5) 01/30/21 22:52 Albumin/Globulin Ratio 0.8 Ratio (1.1-2.1) L 01/30/21 22:52 XRAY X-ray Results: cxr neg for acute Opioid Opioid Risk Tool Age ([place] box if 16-45): Yes History of Preadolescent Sexual Abuse: No Total: 1 Total Score Risk Category: Low Risk Copyright: Donaldo PEDRAZA predicting aberrant behaviors Diagnosis Discharge Problem: Sickle cell anemia, Sickle cell crisis Instructions Forms: [facility] Patient Portal Social Distancing ADDITIONAL NOTES Additional Notes Additional Notes: unable [place] transfer due to on diversion. arranged admit here to dr resendiz.
[2021-01-30 23:12] LABS: BASOPHILS # (AUTO) 0.1 X10^3/uL (0.0-0.1); BASOPHILS % (AUTO) 0.4 % (0.2-1.0); EOSINOPHILS # (AUTO) 0.1 x10^3/uL (0.0-0.2); EOSINOPHILS % (AUTO) 0.7 % (0.9-2.9); HEMATOCRIT 23.1 % (36.0-47.0); HEMOGLOBIN 8.2 g/dL (12.0-16.0); LYMPHOCYTES # (AUTO) 4.4 X10^3/uL (1.3-2.9); LYMPHOCYTES % (AUTO) 22.3 % (21.0-51.0); MEAN CORPUSCULAR HEMOGLOBIN 33.1 pg (27.0-34.0); MEAN CORPUSCULAR HGB CONC 35.5 g/dL (33.0-35.0); MEAN CORPUSCULAR VOLUME 93.2 fL (80.0-100.0); MEAN PLATELET VOLUME 6.5 fL (7.4-11.0); MONOCYTES # (AUTO) 1.9 x10^3/uL (0.3-0.8); MONOCYTES % (AUTO) 9.4 % (0.0-13.0); NEUTROPHILS # (AUTO) 13.3 x10^3/uL (2.2-4.8); NEUTROPHILS % (AUTO) 67.2 % (42.0-75.0); PLATELET COUNT 215 X10^3/uL (150.0-450.0); RED BLOOD COUNT 2.48 X10^6/uL (3.5-5.4); RED CELL DISTRIBUTION WIDTH 17.2 % (11.6-16.5); WHITE BLOOD COUNT 19.8 X10^3/uL (3.6-10.0)
[2021-01-30] MEDS ORDERED: NS 1000 ML 1,000 ML IV ONE (23:13)
[2021-01-30] MEDS ORDERED: DILAUDID INJ IVP ONE (23:13)
[2021-01-30] MEDS ORDERED: BENADRYL INJ 50 MG VIAL IVP ONE (23:13)
[2021-01-30 23:23] LABS: ALANINE AMINOTRANSFERASE 11 Units/L (12-78); ALBUMIN 3.3 g/dL (3.4-5.0); ALKALINE PHOSPHATASE 43 Units/L (46-116); ASPARTATE AMINO TRANSFERASE 17 Units/L (15-37); BLOOD UREA NITROGEN 4 mg/dL (7-18); CALCIUM 8.8 mg/dL (8.5-10.1); CARBON DIOXIDE 23.9 mmol/L (21-32); CHLORIDE 104 mmol/L (98-107); COR CA(FOR HYPOALB) 9.4 mg/dL (8.5-10.1); COR NA(FOR HYPERGLY) 140 mmol/L (136-145); CREATININE 0.58 mg/dL (0.55-1.02); SODIUM 139 mmol/L (136-145); TOTAL PROTEIN 7.5 g/dL (6.4-8.2); eGFR NON BLACK RACES > 60 (>60)
--- NOTE | 2021-01-30 23:26 | RAD ---
EXAM: CHEST X-RAYHISTORY: Sickle cell crisis. Chest pain.TECHNIQUE: AP chest x-ray dated January 30, 2021 at 10:36 PM.COMPARISON: CXR dated January 09, 2021.FINDINGS:The heart size and mediastinum are within normal limits. The lung burns and costophrenic angles are clear. There is no acute parenchymal infiltrate, pleural effusion, or pneumothorax seen. The visualized bony structures are within normal limits.IMPRESSION:1. No evidence for acute cardiopulmonary disease seen.2. No significant interval change from the previous exam.Electronically signed by: Zak Camargo (Jan 30, 2021 23:23:49)
[2021-01-30] MEDS ORDERED: NS 1000 ML 1,000 ML ONE (23:35)
[2021-01-30] MEDS ORDERED: DILAUDID INJ ONE (23:35)
[2021-01-30] MEDS ORDERED: BENADRYL INJ 50 MG VIAL ONE (23:35)
[2021-01-31] MEDS ORDERED: K-RIDER 10 MEQ/NS 100 ML 10 MEQ/100 ML BAG IV ONE ×2 (00:49→01:27)
[2021-01-31] MEDS ORDERED: DILAUDID INJ ONE ×2 (01:27→03:01)
[2021-01-31] MEDS: DILAUDID INJ IVP ONE ×2 (01:32→01:33)
[2021-01-31] MEDS ORDERED: DILAUDID INJ IVP ONE (02:49)
[2021-01-31] MEDS ORDERED: K-RIDER 10 MEQ/NS 100 ML 10 MEQ/100 ML BAG IV PRN (04:08)
[2021-01-31] MEDS ORDERED: K-DUR TAB 20 MEQ PO PRN (04:08)
[2021-01-31] MEDS ORDERED: POTASSIUM CHLORIDE LIQ 20 MEQ UDC PO PRN (04:08)
[2021-01-31] MEDS ORDERED: POTASSIUM CHL 60 MEQ/NS 0.45% 500 ML IV PRN (04:08)
[2021-01-31] MEDS ORDERED: MICRO K EXTEN CAP 10 MEQ PO PRN (04:08)
[2021-01-31] MEDS ORDERED: POTASSIUM CHL 40 MEQ/NS 0.45% 500 ML IV PRN (04:08)
[2021-01-31] MEDS ORDERED: KLOR-CON PO PRN (04:08)
[2021-01-31] MEDS: DILAUDID INJ IVP PRN ×7 (05:12→21:59)
[2021-01-31] MEDS: ZOFRAN INJ 4 MG VIAL IVP PRN ×2 (05:12→19:45)
[2021-01-31 06:10] LABS: BASOPHILS # (AUTO) 0.1 X10^3/uL (0.0-0.1); BASOPHILS % (AUTO) 0.4 % (0.2-1.0); EOSINOPHILS # (AUTO) 0.2 x10^3/uL (0.0-0.2); EOSINOPHILS % (AUTO) 1.2 % (0.9-2.9); HEMATOCRIT 20.1 % (36.0-47.0); LYMPHOCYTES # (AUTO) 4.8 X10^3/uL (1.3-2.9); LYMPHOCYTES % (AUTO) 23.8 % (21.0-51.0); MEAN CORPUSCULAR HEMOGLOBIN 32.5 pg (27.0-34.0); MEAN CORPUSCULAR HGB CONC 34.7 g/dL (33.0-35.0); MEAN CORPUSCULAR VOLUME 93.7 fL (80.0-100.0); MEAN PLATELET VOLUME 6.8 fL (7.4-11.0); MONOCYTES # (AUTO) 2.3 x10^3/uL (0.3-0.8); MONOCYTES % (AUTO) 11.3 % (0.0-13.0); NEUTROPHILS # (AUTO) 12.8 x10^3/uL (2.2-4.8); NEUTROPHILS % (AUTO) 63.3 % (42.0-75.0); PLATELET COUNT 190 X10^3/uL (150.0-450.0); RED BLOOD COUNT 2.14 X10^6/uL (3.5-5.4); RED CELL DISTRIBUTION WIDTH 17.4 % (11.6-16.5); WHITE BLOOD COUNT 20.2 X10^3/uL (3.6-10.0)
[2021-01-31 06:22] LABS: ALANINE AMINOTRANSFERASE 11 Units/L (12-78); ALKALINE PHOSPHATASE 38 Units/L (46-116); ASPARTATE AMINO TRANSFERASE 16 Units/L (15-37); BLOOD UREA NITROGEN 3 mg/dL (7-18); CALCIUM 7.9 mg/dL (8.5-10.1); CARBON DIOXIDE 23.8 mmol/L (21-32); CHLORIDE 104 mmol/L (98-107); COR CA(FOR HYPOALB) 8.7 mg/dL (8.5-10.1); CREATININE 0.39 mg/dL (0.55-1.02); SODIUM 138 mmol/L (136-145); TOTAL PROTEIN 6.8 g/dL (6.4-8.2); eGFR NON BLACK RACES > 60 (>60)
[2021-01-31] MEDS ORDERED: NS 250 ML IV 250 ML IV ONE (06:31)
[2021-01-31] MEDS ORDERED: LR 1000 ML IV 1,000 ML IV ONE (08:31)
[2021-01-31] MEDS: HYDREA PO SCH ×2 (09:41→20:21)
[2021-01-31] MEDS: MOTRIN TAB 600 MG PO SCH ×3 (09:41→21:52)
[2021-01-31] MEDS ORDERED: TORADOL 30 MG VIAL IVP ONE (09:44)
[2021-01-31] MEDS ORDERED: DILAUDID INJ IVP PRN (09:44)
[2021-01-31] MEDS ORDERED: DILAUDID INJ IVP NR (10:15)
[2021-01-31] MEDS: BENADRYL INJ 50 MG VIAL IVP PRN ×2 (10:18→19:30)
[2021-01-31 10:58] LABS: BAND NEUTROPHILS % 2 % (0-10)
[2021-01-31 11:03] LABS: ANISOCYTOSIS SLIGHT; OVALOCYTES SLIGHT; PLATELET MORPHOLOGY COMMENT NORMAL (NORMAL)
[2021-01-31 11:04] LABS: SICKLE CELLS SLIGHT
[2021-01-31] MEDS: LR 1000 ML IV 1,000 ML IV SCH ×2 (12:37→18:12)
[2021-01-31] MEDS ORDERED: TORADOL 30 MG VIAL IVP NR (13:00)
[2021-01-31 14:29] LABS: BASOPHILS # (AUTO) 0.1 X10^3/uL (0.0-0.1); BASOPHILS % (AUTO) 0.3 % (0.2-1.0); EOSINOPHILS # (AUTO) 0.2 x10^3/uL (0.0-0.2); HEMATOCRIT 20.2 % (36.0-47.0); LYMPHOCYTES # (AUTO) 5.5 X10^3/uL (1.3-2.9); LYMPHOCYTES % (AUTO) 26.1 % (21.0-51.0); MEAN CORPUSCULAR HEMOGLOBIN 32.4 pg (27.0-34.0); MEAN CORPUSCULAR HGB CONC 34.6 g/dL (33.0-35.0); MEAN CORPUSCULAR VOLUME 93.5 fL (80.0-100.0); MEAN PLATELET VOLUME 6.4 fL (7.4-11.0); MONOCYTES # (AUTO) 2.2 x10^3/uL (0.3-0.8); MONOCYTES % (AUTO) 10.7 % (0.0-13.0); NEUTROPHILS % (AUTO) 61.9 % (42.0-75.0); PLATELET COUNT 165 X10^3/uL (150.0-450.0); RED BLOOD COUNT 2.16 X10^6/uL (3.5-5.4); RED CELL DISTRIBUTION WIDTH 17.1 % (11.6-16.5)
[2021-01-31 14:53] LABS: PLATELET MORPHOLOGY COMMENT NORMAL (NORMAL); SICKLE CELLS SLIGHT
[2021-01-31 14:54] LABS: TEAR DROP CELLS SLIGHT
[2021-02-01] MEDS: DILAUDID INJ IVP PRN ×12 (00:02→22:32)
[2021-02-01] MEDS: LR 1000 ML IV 1,000 ML IV SCH ×3 (01:14→18:32)
[2021-02-01] MEDS: BENADRYL INJ 50 MG VIAL IVP PRN ×3 (04:04→20:35)
[2021-02-01] MEDS: MOTRIN TAB 600 MG PO SCH ×3 (05:09→22:07)
[2021-02-01 06:44] LABS: BASOPHILS # (AUTO) 0.1 X10^3/uL (0.0-0.1); MEAN PLATELET VOLUME 7.3 fL (7.4-11.0); WHITE BLOOD COUNT 20.1 X10^3/uL (3.6-10.0)
[2021-02-01 06:47] LABS: BASOPHILS % (AUTO) 0.6 % (0.2-1.0); EOSINOPHILS # (AUTO) 0.5 x10^3/uL (0.0-0.2); EOSINOPHILS % (AUTO) 2.7 % (0.9-2.9); LYMPHOCYTES % (AUTO) 29.7 % (21.0-51.0); MEAN CORPUSCULAR HGB CONC 34.1 g/dL (33.0-35.0); MEAN CORPUSCULAR VOLUME 93.9 fL (80.0-100.0); MONOCYTES # (AUTO) 2.1 x10^3/uL (0.3-0.8); MONOCYTES % (AUTO) 10.7 % (0.0-13.0); NEUTROPHILS # (AUTO) 11.3 x10^3/uL (2.2-4.8); NEUTROPHILS % (AUTO) 56.3 % (42.0-75.0); PLATELET COUNT 64 X10^3/uL (150.0-450.0); RED BLOOD COUNT 2.04 X10^6/uL (3.5-5.4); RED CELL DISTRIBUTION WIDTH 17.6 % (11.6-16.5)
[2021-02-01 06:52] LABS: HEMATOCRIT 19.2 % (36.0-47.0)
[2021-02-01 06:53] LABS: HEMOGLOBIN 6.5 g/dL (12.0-16.0)
[2021-02-01 07:10] LABS: PLATELET MORPHOLOGY COMMENT NORMAL (NORMAL)
[2021-02-01 07:15] LABS: ANISOCYTOSIS SLIGHT; OVALOCYTES SLIGHT; SICKLE CELLS SLIGHT
[2021-02-01 07:20] LABS: ALANINE AMINOTRANSFERASE 11 Units/L (12-78); ALBUMIN 2.7 g/dL (3.4-5.0); ALKALINE PHOSPHATASE 36 Units/L (46-116); ASPARTATE AMINO TRANSFERASE 21 Units/L (15-37); BLOOD UREA NITROGEN 2 mg/dL (7-18); CALCIUM 7.9 mg/dL (8.5-10.1); CARBON DIOXIDE 25.8 mmol/L (21-32); CHLORIDE 106 mmol/L (98-107); COR CA(FOR HYPOALB) 8.9 mg/dL (8.5-10.1); CREATININE 0.38 mg/dL (0.55-1.02); SODIUM 139 mmol/L (136-145); TOTAL PROTEIN 6.2 g/dL (6.4-8.2); eGFR NON BLACK RACES > 60 (>60)
[2021-02-01] MEDS: HYDREA PO SCH ×2 (08:52→20:42)
[2021-02-02] MEDS: DILAUDID INJ IVP PRN ×10 (00:43→23:33)
[2021-02-02] MEDS: LR 1000 ML IV 1,000 ML IV SCH ×5 (02:26→20:38)
[2021-02-02] MEDS: ZOFRAN INJ 4 MG VIAL IVP PRN ×3 (02:28→20:30)
[2021-02-02] MEDS: BENADRYL INJ 50 MG VIAL IVP PRN ×4 (04:37→23:33)
[2021-02-02] MEDS: MOTRIN TAB 600 MG PO SCH ×4 (06:27→22:29)
[2021-02-02 07:22] LABS: BASOPHILS # (AUTO) 0.1 X10^3/uL (0.0-0.1); LYMPHOCYTES # (AUTO) 4.1 X10^3/uL (1.3-2.9); MONOCYTES # (AUTO) 2.5 x10^3/uL (0.3-0.8); MONOCYTES % (AUTO) 11.5 % (0.0-13.0)
[2021-02-02 07:29] LABS: BASOPHILS % (AUTO) 0.5 % (0.2-1.0); EOSINOPHILS # (AUTO) 0.9 x10^3/uL (0.0-0.2); EOSINOPHILS % (AUTO) 4.1 % (0.9-2.9); LYMPHOCYTES % (AUTO) 19.1 % (21.0-51.0); MEAN CORPUSCULAR HEMOGLOBIN 32.7 pg (27.0-34.0); MEAN CORPUSCULAR HGB CONC 34.6 g/dL (33.0-35.0); MEAN CORPUSCULAR VOLUME 94.7 fL (80.0-100.0); NEUTROPHILS # (AUTO) 13.8 x10^3/uL (2.2-4.8); NEUTROPHILS % (AUTO) 64.8 % (42.0-75.0); PLATELET COUNT 154 X10^3/uL (150.0-450.0); RED BLOOD COUNT 1.88 X10^6/uL (3.5-5.4); RED CELL DISTRIBUTION WIDTH 18.5 % (11.6-16.5); WHITE BLOOD COUNT 21.3 X10^3/uL (3.6-10.0)
[2021-02-02 07:30] LABS: ALANINE AMINOTRANSFERASE 10 Units/L (12-78); ALBUMIN 2.7 g/dL (3.4-5.0); ALKALINE PHOSPHATASE 39 Units/L (46-116); ASPARTATE AMINO TRANSFERASE 20 Units/L (15-37); BLOOD UREA NITROGEN 2 mg/dL (7-18); CALCIUM 8.3 mg/dL (8.5-10.1); CHLORIDE 104 mmol/L (98-107); COR CA(FOR HYPOALB) 9.3 mg/dL (8.5-10.1); CREATININE 0.37 mg/dL (0.55-1.02); SODIUM 138 mmol/L (136-145); TOTAL PROTEIN 6.2 g/dL (6.4-8.2); eGFR NON BLACK RACES > 60 (>60)
[2021-02-02 07:34] LABS: HEMOGLOBIN 6.1 g/dL (12.0-16.0)
[2021-02-02 07:36] LABS: HEMATOCRIT 17.8 % (36.0-47.0)
[2021-02-02 07:51] LABS: PLATELET MORPHOLOGY COMMENT NORMAL (NORMAL); SICKLE CELLS FEW
[2021-02-02 07:52] LABS: ANISOCYTOSIS SLIGHT
[2021-02-02] MEDS: HYDREA PO SCH ×2 (08:31→20:33)
[2021-02-03] MEDS: ZOFRAN INJ 4 MG VIAL IVP PRN ×4 (02:25→20:38)
[2021-02-03] MEDS: DILAUDID INJ IVP PRN ×8 (02:26→23:34)
[2021-02-03] MEDS: LR 1000 ML IV 1,000 ML IV SCH ×2 (02:31→09:54)
[2021-02-03] MEDS: MOTRIN TAB 600 MG PO SCH ×3 (05:35→22:17)
[2021-02-03] MEDS: BENADRYL INJ 50 MG VIAL IVP PRN ×4 (05:36→23:32)
[2021-02-03 05:40] LABS: ALANINE AMINOTRANSFERASE 14 Units/L (12-78); ALBUMIN 2.5 g/dL (3.4-5.0); ALKALINE PHOSPHATASE 40 Units/L (46-116); ASPARTATE AMINO TRANSFERASE 28 Units/L (15-37); BLOOD UREA NITROGEN 2 mg/dL (7-18); CALCIUM 7.8 mg/dL (8.5-10.1); CARBON DIOXIDE 26.7 mmol/L (21-32); CHLORIDE 105 mmol/L (98-107); CREATININE 0.35 mg/dL (0.55-1.02); SODIUM 139 mmol/L (136-145); TOTAL PROTEIN 5.8 g/dL (6.4-8.2); eGFR NON BLACK RACES > 60 (>60)
[2021-02-03 06:09] LABS: BASOPHILS # (AUTO) 0.1 X10^3/uL (0.0-0.1); BASOPHILS % (AUTO) 0.5 % (0.2-1.0); EOSINOPHILS # (AUTO) 0.8 x10^3/uL (0.0-0.2); EOSINOPHILS % (AUTO) 4.2 % (0.9-2.9); LYMPHOCYTES # (AUTO) 4.9 X10^3/uL (1.3-2.9); LYMPHOCYTES % (AUTO) 24.7 % (21.0-51.0); MEAN CORPUSCULAR HEMOGLOBIN 33.4 pg (27.0-34.0); MEAN CORPUSCULAR HGB CONC 34.4 g/dL (33.0-35.0); MEAN CORPUSCULAR VOLUME 97.1 fL (80.0-100.0); MEAN PLATELET VOLUME 7.5 fL (7.4-11.0); MONOCYTES # (AUTO) 2.6 x10^3/uL (0.3-0.8); MONOCYTES % (AUTO) 13.1 % (0.0-13.0); NEUTROPHILS # (AUTO) 11.3 x10^3/uL (2.2-4.8); NEUTROPHILS % (AUTO) 57.5 % (42.0-75.0); PLATELET COUNT 151 X10^3/uL (150.0-450.0); RED BLOOD COUNT 1.78 X10^6/uL (3.5-5.4); RED CELL DISTRIBUTION WIDTH 19.3 % (11.6-16.5); WHITE BLOOD COUNT 19.7 X10^3/uL (3.6-10.0)
[2021-02-03 06:25] LABS: HEMATOCRIT 17.3 % (36.0-47.0); HEMOGLOBIN 5.9 g/dL (12.0-16.0)
[2021-02-03] MEDS ORDERED: NS 500 ML IV 500 ML IV ONE (08:24)
[2021-02-03] MEDS: HYDREA PO SCH ×2 (08:28→20:39)
[2021-02-03] MEDS ORDERED: DILAUDID INJ IVP PRN (10:08)
[2021-02-03] MEDS ORDERED: PERCOCET TAB 5/325 MG PO PRN (10:09)
--- NOTE | 2021-02-03 11:34 | PCM.PROG ---
Progress Note - Progress Note for Day of Date of Exam: 02/03/21 - Subjective Subjective: IS A 25 YEAR OLD PATIENT OF . SHE WAS ADMITTED ON 01/31 FOR TREATMENT OF SICKLE CELL CRISIS. TODAY, SHE IS ALERT AND ORIENTED, LYING IN BED ON MORNING ROUNDS. SHE REPORTS GENERALIZED PAIN TODAY. STAFF REPORTS THAT PATIENT IS REQUIRING THE ORDERED PRN DILAUDID EVERY 3 HOURS. ON EXAMINATION, HEART IS REGULAR IN RATE AND RHYTHM. BILATERAL LUNGS ARE CLEAR TO AUSCULTATION. ABDOMEN IS ROUND, SOFT AND NOTED WITH MILD TENDERNESS. NORMAL BOWEL SOUNDS NOTED IN ALL QUADRANTS. HER VITALS THIS MORNING ARE: 98.8-71-18-97%-102/56. LABS WERE OBTAINED. ABNORMAL LAB VALUES INCLUDE THE F OLLOWING: WBC 19.7, RBC 1.78, HGB 5.9, HCT 17.3, POTASSIUM 2.8, BUN 2, CREATININE 0.35, CALCIUM 7.8, TOTAL BILI 1.10, ALK PHOS 40, TOTAL PROTEIN 5.8, ALBUMIN 2.5. SHE IS CURRENTLY RECEIVING LR WITH 25MEQ KCL AT 150 ML/HR, THE POTASSIUM PROTOCOL, BENADRYL 12.5MG IV Q4H PRN, DILAUDID 2MG IV Q3H PRN, HYDREA 500MG PO BID, MOTRIN 600MG PO TID, ZOFRAN 4MG IV Q6H PRN. TWO UNITS OF BLOOD WERE ORDERED AND THEY ARRIVED THIS MORNING. WE WILL TRANSFUSE TWO UNITS OF PACKED RED BLOOD CELLS TODAY. OTHERWISE, WE WILL CONTINUE WITH CURRENT PLAN OF CARE. WE WILL FOLLOW UP WITH AM LABS AND CONTINUE TO MONITOR. TIME SPENT ON CLINICAL ASSESSMENT, REVIEWING LABS AND IMAGING, DECISION MAKING, AND DOCUMENTATION GREATER THAN 45 MINUTES. - Past Medical Family Social History Past Med/Fam/Surg Hx: No changes since H&P Allergies: Allergies No Known Drug Allergies Allergy (Verified 05/14/20 01:12) - Review of Systems ROS: No change since H&P - Vital Signs and I&O's Vital Signs: Temperature 98.8 F Pulse Rate [Radial] 71 Pulse Rate 98 Respiratory Rate 18 Blood Pressure [Right Arm] 102/56 Blood Pressure [Left Arm] 106/56 Blood Pressure [Right Arm] 146/63 Blood Pressure [Left Arm] 136/71 Blood Pressure [Right Arm] 108/61 Blood Pressure [Right Arm] 107/51 Blood Pressure [Left Arm] 113/59 Blood Pressure 106/61 O2 Sat by Pulse Oximetry 97 Intake and Output: Intake & Output 01/31/21 02/01/21 02/02/21 02/03/21 11:59 11:59 11:59 11:59 Intake Total 4215 / 4215 4953 / 4953 4787 / 4787 Balance 4215 / 4215 4953 / 4953 4787 / 4787 - Physical Exam Oriented: Normal Eyes: Normal Ear: Normal Nose: Normal Throat: Normal Respiratory: Normal Cardiovascular: Normal : Normal Auscultation: Bowel Sounds: Normal Palpation: Normal Tenderness: Diffuse, Mild Skin: Normal Musculoskeletal: Normal Psychiatric: Normal Mood Description: Calm Affect: Normal Speech Pattern: Clear - Laboratory and Diagnostics Result Diagrams: 02/03/21 04:18 02/03/21 04:18 Labs: Laboratory WBC 19.7 X10^3/uL (3.6-10.0) H 02/03/21 04:18 RBC 1.78 X10^6/uL (3.5-5.4) L 02/03/21 04:18 Hgb 5.9 g/dL (12.0-16.0) L* 02/03/21 04:18 Hct 17.3 % (36.0-47.0) L* 02/03/21 04:18 MCV 97.1 fL (80.0-100.0) 02/03/21 04:18 MCH 33.4 pg (27.0-34.0) 02/03/21 04:18 MCHC 34.4 g/dL (33.0-35.0) 02/03/21 04:18 RDW 19.3 % (11.6-16.5) H 02/03/21 04:18 Plt Count 151 X10^3/uL (150.0-450.0) 02/03/21 04:18 Plt Count Comment Adequate (ADEQUATE) 02/02/21 07:03 MPV 7.5 fL (7.4-11.0) 02/03/21 04:18 Neut % (Auto) 57.5 % (42.0-75.0) 02/03/21 04:18 Lymph % (Auto) 24.7 % (21.0-51.0) 02/03/21 04:18 [place] % (Auto) 13.1 % (0.0-13.0) H 02/03/21 04:18 Eos % (Auto) 4.2 % (0.9-2.9) H 02/03/21 04:18 Baso % (Auto) 0.5 % (0.2-1.0) 02/03/21 04:18 Neut # (Auto) 11.3 x10^3/uL (2.2-4.8) H 02/03/21 04:18 Lymph # (Auto) 4.9 X10^3/uL (1.3-2.9) H 02/03/21 04:18 [place] # (Auto) 2.6 x10^3/uL (0.3-0.8) H 02/03/21 04:18 Eos # (Auto) 0.8 x10^3/uL (0.0-0.2) H 02/03/21 04:18 Baso # (Auto) 0.1 X10^3/uL (0.0-0.1) 02/03/21 04:18 Absolute Nucleated RBC 1.0 /100WBC 02/03/21 04:18 Total Counted 100 02/02/21 07:03 Neutrophils % (Manual) 70 % (39-76) 02/02/21 07:03 Band Neutrophils % Cancelled 01/31/21 14:18 Lymphocytes % (Manual) 20 % (13-43) 02/02/21 07:03 Monocytes % (Manual) 4 % (4-9) 02/02/21 07:03 Eosinophils % (Manual) 6 % (0-6) 02/02/21 07:03 Basophils % (Manual) Cancelled 01/31/21 14:18 Metamyelocytes % Cancelled 01/31/21 14:18 Myelocytes % Cancelled 01/31/21 14:18 Promyelocytes % Cancelled 01/31/21 14:18 Nucleated RBCs 1 02/01/21 06:05 Atypical Lymphocytes Cancelled 01/31/21 14:18 Blast Cells Cancelled 01/31/21 14:18 Smudge Cells Cancelled 01/31/21 14:18 Toxic Granulation Cancelled 01/31/21 14:18 Dohle Bodies Cancelled 01/31/21 14:18 Torri Rods Cancelled 01/31/21 14:18 Plt Clumps, EDTA Cancelled 01/31/21 14:18 Giant Platelets Cancelled 01/31/21 14:18 Plt Morphology Comment Normal (NORMAL) 02/02/21 07:03 RBC Morphology Abnormal (NORMAL) A 02/02/21 07:03 Dimorphic RBCs Cancelled 01/31/21 14:18 Polychromasia Cancelled 01/31/21 14:18 Hypochromasia Cancelled 01/31/21 14:18 Poikilocytosis Cancelled 01/31/21 14:18 Basophilic Stippling Cancelled 01/31/21 14:18 Anisocytosis Slight A 02/02/21 07:03 Microcytosis Cancelled 01/31/21 14:18 Macrocytosis Cancelled 01/31/21 14:18 Spherocytes Cancelled 01/31/21 14:18 Pappenheimer Bodies Cancelled 01/31/21 14:18 Sickle Cells Few 02/02/21 07:03 Target Cells Cancelled 01/31/21 14:18 Tear Drop Cells Cancelled 01/31/21 14:18 Tear Drop Cells Slight A 01/31/21 14:18 Ovalocytes Slight A 02/01/21 06:05 Stomatocytes Cancelled 01/31/21 14:18 Helmet Cells Cancelled 01/31/21 14:18 [place] Bodies Cancelled 01/31/21 14:18 Gray Rings Cancelled 01/31/21 14:18 Larned Cells Cancelled 01/31/21 14:18 Crenated Cell Cancelled 01/31/21 14:18 Acanthocytes (Spur) Cancelled 01/31/21 14:18 Rouleaux Cancelled 01/31/21 14:18 Schistocytes Cancelled 01/31/21 14:18 Sodium 139 mmol/L (136-145) 02/03/21 04:18 Corrected Sodium TNP 02/03/21 04:18 Potassium 2.8 mmol/L (3.5-5.1) L* 02/03/21 04:18 Chloride 105 mmol/L (98-107) 02/03/21 04:18 Carbon Dioxide 26.7 mmol/L (21-32) 02/03/21 04:18 BUN 2 mg/dL (7-18) L 02/03/21 04:18 Creatinine 0.35 mg/dL (0.55-1.02) L 02/03/21 04:18 Est GFR (MDRD) Af Amer > 60 (>60) 02/03/21 04:18 Est GFR (MDRD) Non-Af > 60 (>60) 02/03/21 04:18 Glucose 97 mg/dL (65-99) 02/03/21 04:18 Calcium 7.8 mg/dL (8.5-10.1) L 02/03/21 04:18 Corrected Calcium 9.0 mg/dL (8.5-10.1) 02/03/21 04:18 Magnesium 1.8 mg/dL (1.7-2.9) 02/02/21 07:03 Total Bilirubin 1.10 mg/dL (0.2-1.0) H 02/03/21 04:18 AST 28 Units/L (15-37) 02/03/21 04:18 ALT 14 Units/L (12-78) 02/03/21 04:18 Alkaline Phosphatase 40 Units/L (46-116) L 02/03/21 04:18 Total Protein 5.8 g/dL (6.4-8.2) L 02/03/21 04:18 Albumin 2.5 g/dL (3.4-5.0) L 02/03/21 04:18 Globulin 3.3 g/dL (2.5-4.5) 02/03/21 04:18 Albumin/Globulin Ratio 0.8 Ratio (1.1-2.1) L 02/03/21 04:18 SARS-CoV-2 (PCR) Negative (NEGATIVE) 01/31/21 02:32 Influenza Type A (PCR) Negative (NEGATIVE) 01/31/21 02:32 Influenza Type B (PCR) Negative (NEGATIVE) 01/31/21 02:32 RSV (PCR) Negative (NEGATIVE) 01/31/21 02:32 Blood Type O POSITIVE 02/02/21 08:45 Antibody Screen Negative 02/02/21 08:45 Crossmatch See Detail 02/02/21 08:45 - Plan (1) Sickle cell anemia Status: Chronic Qualifiers: Sickle-cell associated disorders: with unspecified crisis Qualified Code(s): D57.00 - Hb-SS disease with crisis, unspecified Plan: TRANSFUSE 2 UNITS PRBC, LR WITH 25MEQ KCL AT 150 ML/HR, THE POTASSIUM PROTOCOL, BENADRYL 12.5MG IV Q4H PRN, DILAUDID 2MG IV Q3H PRN, HYDREA 500MG PO BID, MOTRIN 600MG PO TID, ZOFRAN 4MG IV Q6H PRN. (2) Sickle cell crisis Status: Acute
[2021-02-03] MEDS: LR IV SCH ×4 (14:36→22:16)
[2021-02-03] MEDS: POTASSIUM CHLORIDE IV SCH ×4 (14:36→22:16)
[2021-02-03 18:48] LABS: HEMATOCRIT 25.1 % (36.0-47.0)
[2021-02-03 18:54] LABS: HEMOGLOBIN 8.7 g/dL (12.0-16.0)
[2021-02-04] MEDS: ZOFRAN INJ 4 MG VIAL IVP PRN ×2 (02:26→08:07)
[2021-02-04] MEDS: DILAUDID INJ IVP PRN ×4 (02:26→11:03)
[2021-02-04] MEDS: LR IV SCH ×2 (05:27)
[2021-02-04] MEDS: POTASSIUM CHLORIDE IV SCH ×2 (05:27)
[2021-02-04] MEDS: BENADRYL INJ 50 MG VIAL IVP PRN ×2 (05:31→11:03)
[2021-02-04] MEDS: MOTRIN TAB 600 MG PO SCH (05:35)
[2021-02-04 08:06] LABS: BASOPHILS # (AUTO) 0.1 X10^3/uL (0.0-0.1); BASOPHILS % (AUTO) 0.5 % (0.2-1.0); EOSINOPHILS # (AUTO) 0.5 x10^3/uL (0.0-0.2); EOSINOPHILS % (AUTO) 2.7 % (0.9-2.9); HEMATOCRIT 25.1 % (36.0-47.0); HEMOGLOBIN 8.6 g/dL (12.0-16.0); LYMPHOCYTES # (AUTO) 3.8 X10^3/uL (1.3-2.9); LYMPHOCYTES % (AUTO) 21.8 % (21.0-51.0); MEAN CORPUSCULAR HEMOGLOBIN 31.2 pg (27.0-34.0); MEAN CORPUSCULAR HGB CONC 34.2 g/dL (33.0-35.0); MEAN CORPUSCULAR VOLUME 91.1 fL (80.0-100.0); MONOCYTES % (AUTO) 11.5 % (0.0-13.0); NEUTROPHILS % (AUTO) 63.5 % (42.0-75.0); PLATELET COUNT 152 X10^3/uL (150.0-450.0); RED BLOOD COUNT 2.76 X10^6/uL (3.5-5.4); WHITE BLOOD COUNT 17.3 X10^3/uL (3.6-10.0)
[2021-02-04] MEDS: HYDREA PO SCH (08:06)
[2021-02-04 08:25] LABS: ALANINE AMINOTRANSFERASE 22 Units/L (12-78); ALBUMIN 2.7 g/dL (3.4-5.0); ALKALINE PHOSPHATASE 41 Units/L (46-116); ASPARTATE AMINO TRANSFERASE 28 Units/L (15-37); BLOOD UREA NITROGEN 2 mg/dL (7-18); CARBON DIOXIDE 26.7 mmol/L (21-32); CHLORIDE 105 mmol/L (98-107); CREATININE 0.38 mg/dL (0.55-1.02); SODIUM 139 mmol/L (136-145); TOTAL PROTEIN 6.2 g/dL (6.4-8.2); eGFR NON BLACK RACES > 60 (>60)
[2021-02-04 08:43] LABS: PLATELET MORPHOLOGY COMMENT NORMAL (NORMAL)
[2021-02-04 08:46] LABS: ANISOCYTOSIS 2+; SICKLE CELLS PRESENT; TARGET CELLS PRESENT
[2021-02-04 08:48] LABS: HOWELL-JOLLY BODIES PRESENT
[2021-02-04 11:12] VITALS: BP 132/79
== END 2021-02-04 12:10 | disposition home or self-care (01) | DRG 812 ==
LOC: ER 21:55 → MED/SURG 01-31 03:25
PROVIDERS: ADMIT Obstetrics & Gynecology Obstetrics; ATTEND Obstetrics & Gynecology Obstetrics
DX: D57.819 Other sickle-cell disorders with crisis, unspecified; Z20.822 Contact with and (suspected) exposure to COVID-19